=== PATIENT | female | born 1965 | race Caucasian/White ===

== ENCOUNTER 2016-06-26 12:49 | Observation (INO) | payer OTHER ==
[~2016-06-26 12:49] MED LIST: CHLORHEXIDINE GLUC HIBICLENS 118 ML BTL TP ONE; VANCOMYCIN 1.5 GM in D5W 250 ML IV ONE
[2016-06-26] MEDS ORDERED: LIDOCAINE 1% 2 ML INJ ONE (13:48)
[2016-06-26] MEDS ORDERED: diphenhydrAMINE 25 MG CAP PO PRN ×2 (14:17→14:26)
[2016-06-26] MEDS ORDERED: tiZANidine HCL 2 MG TAB PO PRN (14:17)
[2016-06-26] MEDS ORDERED: ACETAMINOPHEN 500 MG TAB PO PRN (14:17)
[2016-06-26] MEDS ORDERED: PROMETHAZINE HCL 25 MG TAB PO PRN (14:17)
[2016-06-26] MEDS ORDERED: FLUTICASONE NASAL 120 SPRAYS/16 GM MDI EACHNARE PRN (14:17)
[2016-06-26] MEDS ORDERED: DIAZEPAM 5 MG TAB PO PRN ×2 (14:17→14:26)
[2016-06-26] MEDS ORDERED: Zonisamide 25 MG PO PRN (14:17)
[2016-06-26] MEDS ORDERED: RIZATRIPTAN BENZOATE PO PRN (14:17)
[2016-06-26] MEDS ORDERED: KETOROLAC 30 MG/1 ML SDV IM PRN (14:17)
[2016-06-26] MEDS ORDERED: LIDOCAINE 5% 1 EA PATCH TD PRN (14:17)
[2016-06-26] MEDS ORDERED: MIDAZOLAM 2 MG/2 ML VIAL ONE (14:18)
[2016-06-26] MEDS ORDERED: METHOCARBAMOL 750 MG TAB PO PRN (14:26)
[2016-06-26] MEDS ORDERED: MAGNESIUM HYDROXIDE 30 ML UDCUP PO PRN (14:26)
[2016-06-26] MEDS ORDERED: BISACODYL 10 MG SUPP PR PRN (14:26)
[2016-06-26] MEDS ORDERED: PHARMACY PAIN CONSULT 1 EA MISC PRN (14:26)
[2016-06-26] MEDS ORDERED: HYDROmorphONE/DILAUDID 1 MG/ML SYR IVP PRN (14:26)
[2016-06-26] MEDS ORDERED: NALOXONE HCL 0.4 MG/ML INJ IVP PRN (14:26)
[2016-06-26] MEDS ORDERED: ONDANSETRON DISINTEGRATING 4 MG TAB PO PRN (14:26)
[2016-06-26] MEDS ORDERED: ONDANSETRON 4 MG/2 ML VIAL IVP PRN (14:26)
[2016-06-26] MEDS ORDERED: DIAZEPAM 10 MG/2 ML SYR IVP PRN (14:26)
[2016-06-26] MEDS ORDERED: HYDROmorphONE/DILAUDID 2 MG/ML INJ ONE (14:27)
[2016-06-26] MEDS ORDERED: fentaNYL 100 MCG/2 ML INJ ONE ×3 (14:27→16:39)
[2016-06-26] MEDS ORDERED: REMIFENTANIL HCL 1 MG VIAL ONE (14:27)
[2016-06-26] MEDS ORDERED: PROPOFOL/EMULSION 500 MG/50 ML BOTTLE IV ONE (14:28)
[2016-06-26] MEDS ORDERED: KETAMINE 100 MG/10 ML SYR IVP ONE (14:28)
[2016-06-26] MEDS ORDERED: NS W/ 20 KCl/L 1,000 ML IV SCH (14:30)
[2016-06-26] MEDS ORDERED: LIDOCAINE 2% 5 ML SDV ONE (14:30)
[2016-06-26] MEDS ORDERED: ALENDRONATE SODIUM 70 MG TAB PO SCH (14:30)
[2016-06-26] MEDS ORDERED: Suvorexant [Belsomra] 15 MG PO PRN (14:30)
[2016-06-26] MEDS ORDERED: ROCURONIUM 50 MG/5 ML VIAL ONE (14:30)
[2016-06-26] MEDS ORDERED: LR 1,000 ML IV ONE (15:03)
[2016-06-26] MEDS ORDERED: LIDOCAINE 1% 5 ML SDV ID PRN (15:03)
[2016-06-26] MEDS ORDERED: DEXAMETHASONE 4 MG/ML VIAL ONE (15:04)
[2016-06-26] MEDS ORDERED: ONDANSETRON 4 MG/2 ML VIAL ONE (15:35)
--- NOTE | 2016-06-26 16:12 | SOAPPROG ---
SOAP Progress Note Assessment/Plan: Post Op Visit: S: Awake and alert. Pt with expected lower back pain O: AFVSS/PERRLA/EOMI no droop CN 2-12 grossly intact +lt touch 5/5 BUE/BLE = CDI A/P: 51 yo female that is s/p hardware removal T10-T12 -orders in place -call with any questions or concerns -pt seen by Dr Bailey as well -call with any questions or concerns 06/26/16 16:09 ICD10 Worksheet Patient Problems: Problems Problem Status Onset Chronic pain Acute S/P hardware removal Acute - ICD10 Problem Qualifiers (1) S/P hardware removal (2) Chronic pain Qualifiers: Chronic pain type: C
[2016-06-26] MEDS ORDERED: HYDROmorphONE/DILAUDID 1 MG/ML SYR ONE (16:21)
[2016-06-26] MEDS ORDERED: DIAZEPAM 10 MG/2 ML SYR ONE (16:39)
--- NOTE | 2016-06-26 17:22 | GOP ---
[f rep st] OPERATIVE REPORT DATE OF OPERATION: 06/26/2016 SURGEON: Harvey Bailey MD HAM MARKER: Fausto Nicole PA-C PREOPERATIVE DIAGNOSIS: Painful thoracic hardware, solid bony fusion of the thoracic spine. POSTOPERATIVE DIAGNOSIS: Painful thoracic hardware, solid bony fusion of the thoracic spine. PROCEDURE PERFORMED: Removal of posterior segmental instrumentation of the thoracic spine 3 levels, 6 total screws ([id number]), exploration and spinal fusion. FINDINGS: ESTIMATED BLOOD LOSS: 25 cc. INDICATIONS: The patient is a 51-year-old who struggles with terrible chronic pain and underwent a thoracic fusion that ultimately was complicated by pseudarthrosis by another surgeon who came to me and wanted revision of the surgery, and she underwent a successful thoracic fusion revision, and we did achieve bony arthrodesis. Unfortunately, the hardware remained very painful, and she continued to struggle with terrible pain. She wanted to have the hardware removed. The risk of fracture of t he posterolateral fusion as well as continued pain was discussed. She knew there was a chance of in fection, and she wanted to proceed. She understood that surgery may fail to alleviate her symptoms, and she wanted to proceed. DESCRIPTION OF PROCEDURE: Patient was taken to the operating room, placed in supine position. Gene ral anesthesia was begun. She was flipped prone onto the Ulises table. Care was taken to pad all points of contact. Her back was sterilely prepped and draped in the usual fashion. A localizing x- ray was taken. We anesthetized the paraspinal muscles. We made a midline incision, opening her yolanda or incision. We exposed the prior hardware. It was [employer] Solera pedicle screws, and there was no complication noted in the hardware. We removed all the cap screws, both rods, and then removed a ll 6 screws. They were all firmly seated within the bone. There was no evidence of any hardware lo osening. We then investigated the fusion underneath the hardware, and there was solid posterolatera l bone bilaterally. We were happy with the overall quality of the fusion. We then closed the incis ion in multiple layers using Vicryl sutures. A running PDS was placed in the skin itself. The padmini ent was reversed from anesthesia, extubated, and transferred to the recovery room in stable conditio n. There were no complications. COMPLICATIONS: None. /[id number]/MODL
[2016-06-26] MEDS: HYDROmorphONE/DILAUDID 6 MG/30 ML PCA IV PRN (17:56)
[2016-06-26] MEDS: PREGABALIN 50 MG CAP PO SCH ×2 (17:57→22:18)
[2016-06-26] MEDS: SENNOSIDES/DOCUSATE SODIUM TAB PO SCH (20:03)
[2016-06-26] MEDS: FAMOTIDINE 20 MG TAB PO SCH (20:05)
[2016-06-26] MEDS ORDERED: MELATONIN 3 MG TAB PO SCH (21:00)
[2016-06-26] MEDS ORDERED: FAMOTIDINE 20 MG/NACL 50 ML IV SCH (21:00)
[2016-06-26] MEDS ORDERED: ZOLPIDEM TARTRATE 5 MG TAB PO SCH (21:00)
[2016-06-26] MEDS ORDERED: MONTELUKAST SODIUM 10 MG TAB PO SCH (21:00)
[2016-06-26] MEDS: MORPHINE SULFATE PO SCH (21:05)
[2016-06-26] MEDS: BUDESONIDE 0.5 MG/2 ML AMPUL.NEB IH SCH ×2 (21:27→21:30)
[2016-06-26] MEDS: MUPIROCIN 2% 22 GM OINT TP SCH (22:19)
[2016-06-27] MEDS: VANCOMYCIN 1.5 GM in D5W 250 ML IV SCH ×2 (01:50→14:29)
[2016-06-27] MEDS: HYDROCODONE/APAP 10/325 TAB PO PRN ×2 (02:18→12:31)
[2016-06-27 05:20] LABS: % IMMATURE GRANULYOCYTES 0.4 % (0.0-1.1); ABSOLUTE IMMATURE GRANULOCYTES 0.04 10^3/uL (0.00-0.10); ADD DIFF? NO; ADD MORPH? NO; ADD SCAN? NO; ATYPICAL LYMPHOCYTE FLAG 50 (0-99); FRAGMENT RBC FLAG 0 (0-99); HEMATOCRIT 38.9 % (38.0-47.0); HEMOGLOBIN 12.3 g/dL (12.6-16.3); LEFT SHIFT FLG 0 (0-99); LIPEMIA HEMOLYSIS FLAG 80 (0-99); MEAN CELL HEMOGLOBIN CONCENTR. 31.6 g/dL (32.4-36.7); MEAN CELL VOLUME 88.6 fL (81.5-99.8); MEAN PLATELET VOLUME 11.8 fL (8.7-11.7); PLATELET CLUMPS FLAG 0 (0-99); PLATELET COUNT 239 10^3/uL (150-400); RED BLOOD CELL COUNT 4.39 10^6/uL (4.18-5.33); RED CELL DISTRIBUTION WIDTH 15.8 % (11.5-15.2)
[2016-06-27 05:42] LABS: ANION GAP 11 mEq/L (8-16); CALCIUM 9.5 mg/dL (8.5-10.4); CARBON DIOXIDE 25 mEq/l (22-31); CHLORIDE 107 mEq/L (97-110); CREATININE 0.8 mg/dL (0.6-1.0); GLOMERULAR FILTRATION RATE > 60; GLUCOSE 87 mg/dL (70-100); POTASSIUM 4.8 mEq/L (3.5-5.2); SODIUM 143 mEq/L (134-144)
[2016-06-27] MEDS ORDERED: LEVOTHYROXINE 50 MCG TAB PO SCH (06:00)
[2016-06-27] MEDS: HYDROmorphONE/DILAUDID 6 MG/30 ML PCA IV PRN (07:12)
--- NOTE | 2016-06-27 08:20 | NEUSURGPN ---
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 NAD. Eating/drinking and voiding. Pt with expected lower back pain. No wells/neck/chest/abd or gu complaints. Objective: AFVSS/PERRLA/EOMI no droop CN 2-12 grossly intact +lt touch 5/5 BUE/BLE = CDI Neuro Check Frequency: per routine Urinary Catheter in Place: No - Physician Discussed Patient with Dr.: Leo Patient Seen by : Leo Neurosurgery Physical Exam - Vitals, I&O, Labs I and O 06/26/16 06/27/16 06/28/16 05:59 05:59 05:59 Intake Total 1730 Output Total 2019 Balance -290 Intake: Oral (ml) 330 IV Intake (ml) 600 IV Infused (ml) 800 NS W/ 20 KCl/L 1,000 ml @ 550 75 mls/hr IV CONT ROBLES Rx #:[id number] Vancomycin 1.5 gm In D5w 250 250 ml @ 166.67 mls/hr IV Q12H ROBLES Rx#:[id number] Output: Urine (ml) 2000 Toilet 2000 Estimated Blood Loss (ml) 20 Other: Number of Voids Toilet 1 Vital Signs Temp Pulse Resp BP Pulse Ox 36.8 C 87 18 120/79 92 06/27/16 07:21 06/27/16 07:21 06/27/16 07:21 06/27/16 07:21 06/27/16 07:21 Laboratory Results 06/27/16 04:38 06/27/16 04:38 ICD10 Worksheet Patient Problems: Problems Problem Status Onset Chronic pain Acute S/P hardware removal Acute - ICD10 Problem Qualifiers (1) S/P hardware removal (2) Chronic pain Qualifiers: Chronic pain type: C
[2016-06-27] MEDS: PREGABALIN 50 MG CAP PO SCH (08:42)
[2016-06-27] MEDS: FAMOTIDINE 20 MG TAB PO SCH (08:47)
[2016-06-27] MEDS: SENNOSIDES/DOCUSATE SODIUM TAB PO SCH (08:50)
[2016-06-27] MEDS ORDERED: CETIRIZINE 10 MG TAB PO SCH (09:00)
[2016-06-27] MEDS ORDERED: HCTZ PO SCH (09:00)
[2016-06-27] MEDS ORDERED: MAGNESIUM OXIDE 400 MG TAB PO SCH (09:00)
[2016-06-27] MEDS ORDERED: TRIMETHOPRIM 100 MG TAB PO SCH (09:00)
[2016-06-27] MEDS ORDERED: DULoxetine 60 MG CAP PO SCH (09:00)
[2016-06-27] MEDS ORDERED: PANTOPRAZOLE SODIUM 40 MG TAB PO SCH (09:00)
[2016-06-27] MEDS ORDERED: ENOXAPARIN 40 MG/0.4 ML SYR SC SCH (09:00)
[2016-06-27] MEDS ORDERED: NON-FORMULARY NEW DRUG (Omeprazole [Prilosec 20 Mg] 40 MG) PO SCH (09:00)
[2016-06-27] MEDS ORDERED: BISOPROLOL PO SCH (09:00)
[2016-06-27] MEDS ORDERED: POLYETHYLENE GLYCOL 3350 17 GM PKT PO SCH (09:00)
[2016-06-27] MEDS: BUDESONIDE 0.5 MG/2 ML AMPUL.NEB IH SCH (09:07)
[2016-06-27] MEDS ORDERED: morphINE SR 30 MG TAB PO SCH (09:30)
[2016-06-27 12:21] VITALS: BP 117/65; PULSE 74; RESP 16; TEMP 98
[2016-06-27] MEDS: MUPIROCIN 2% 22 GM OINT TP SCH (12:38)
[2016-06-27 14:21] VITALS: O2SAT 93
[2016-06-27] MEDS: MORPHINE SULFATE PO SCH (14:28)
[2016-06-29] MEDS ORDERED: ENOXAPARIN 40 MG/0.4 ML SYR SC SCH (09:00)
== END 2016-06-27 17:12 | disposition home or self-care (01) ==
LOC: INTOOBSV 12:49 → F3N 12:49
PROVIDERS: ADMIT Neurological Surgery; ATTEND Neurological Surgery
PROC: 0PP404Z Removal of Internal Fixation Device from Thoracic Vertebra, Open Approach (ICD-10-PCS; principal; 2016-06-26 14:00)
DX: T84.84XA Pain due to internal orthopedic prosthetic devices, implants and grafts, initial encounter (principal); Z98.1 Arthrodesis status
CPT/HCPCS: 22852; 76001; 93971; 97161; 97165; G0378; G8978; G8979; G8987; G8988; G8989; J1100; J1170; J1650; J2250; J2405; J2704; J3010; J3370; J7626

== ENCOUNTER 2016-11-01 05:50 | Inpatient (IN) | payer OTHER ==
[2016-11-01] MEDS ORDERED: VANCOMYCIN 1.25 GM in D5W 250 ML IV ONE (06:00)
[2016-11-01] MEDS ORDERED: MIDAZOLAM 2 MG/2 ML VIAL IVP ONE (06:50)
[2016-11-01 06:57] LABS: % IMMATURE GRANULYOCYTES 0.2 % (0.0-1.1); ABSOLUTE IMMATURE GRANULOCYTES 0.01 10^3/uL (0.00-0.10); ADD DIFF? NO; ADD MORPH? NO; ADD SCAN? NO; ATYPICAL LYMPHOCYTE FLAG 0 (0-99); FRAGMENT RBC FLAG 0 (0-99); HEMATOCRIT 42.2 % (38.0-47.0); HEMOGLOBIN 14.1 g/dL (12.6-16.3); LEFT SHIFT FLG 0 (0-99); LIPEMIA HEMOLYSIS FLAG 80 (0-99); MEAN CELL HEMOGLOBIN 29.7 pg (27.9-34.1); MEAN CELL HEMOGLOBIN CONCENTR. 33.4 g/dL (32.4-36.7); MEAN CELL VOLUME 88.8 fL (81.5-99.8); MEAN PLATELET VOLUME 11.6 fL (8.7-11.7); PLATELET CLUMPS FLAG 0 (0-99); PLATELET COUNT 213 10^3/uL (150-400); RED BLOOD CELL COUNT 4.75 10^6/uL (4.18-5.33); RED CELL DISTRIBUTION WIDTH 13.1 % (11.5-15.2)
--- NOTE | 2016-11-01 06:58 | PDHPUP ---
History & Physical Update H&P update statement: This history and physical update is based on an assessment of the patient which was completed after admission or registration (within 24 hours), but prior to the surgery/procedure. H&P update: H&P reviewed & patient examined, no change in patient's condition since H&P completed
[2016-11-01] MEDS ORDERED: THROMBIN (BOVINE) 20,000 UNIT VIAL TP ONE ×2 (06:59→08:37)
[2016-11-01] MEDS ORDERED: BUPIVACAINE/EPI 0.25% 30 ML SDV ONE (06:59)
[2016-11-01] MEDS ORDERED: VANCOMYCIN PHARMACY TO DOSE MISC ONE (07:00)
[2016-11-01] MEDS ORDERED: BACITRACIN 50,000 UNITS/10 ML SYR IRR ONE ×2 (07:00→13:15)
[2016-11-01] MEDS ORDERED: ROCURONIUM 50 MG/5 ML VIAL ONE (07:21)
[2016-11-01] MEDS ORDERED: DEXAMETHASONE 4 MG/ML VIAL ONE ×3 (07:21→07:22)
[2016-11-01] MEDS ORDERED: ONDANSETRON 4 MG/2 ML VIAL ONE (07:21)
[2016-11-01] MEDS ORDERED: RANITIDINE 50 MG/2 ML VIAL ONE (07:21)
[2016-11-01 07:22] LABS: ANION GAP 14 mEq/L (8-16); C-REACTIVE PROTEIN 35.5 mg/L (<10.0); CALCIUM 9.5 mg/dL (8.5-10.4); CARBON DIOXIDE 22 mEq/l (22-31); CHLORIDE 105 mEq/L (97-110); CREATININE 0.9 mg/dL (0.6-1.0); GLOMERULAR FILTRATION RATE > 60; GLUCOSE 89 mg/dL (70-100); POTASSIUM 4.6 mEq/L (3.5-5.2); SODIUM 141 mEq/L (134-144)
[2016-11-01] MEDS ORDERED: LIDOCAINE 2% 5 ML SDV ONE (07:23)
[2016-11-01] MEDS ORDERED: fentaNYL 100 MCG/2 ML INJ ONE ×5 (07:23→17:51)
[2016-11-01] MEDS ORDERED: PROPOFOL 200 MG/20 ML VIAL ONE ×2 (07:24→09:05)
[2016-11-01] MEDS ORDERED: PROPOFOL/EMULSION 500 MG/50 ML BOTTLE IV ONE ×2 (07:25→08:12)
[2016-11-01] MEDS ORDERED: TRANEXAMIC ACID 820 MG in NS 100 ML IV ONE (07:30)
[2016-11-01] MEDS ORDERED: CHLORHEXIDINE GLUC HIBICLENS 118 ML BTL TP ONE (07:30)
[2016-11-01] MEDS ORDERED: KETAMINE 100 MG/10 ML SYR ONE (07:38)
--- NOTE | 2016-11-01 07:39 | PDANEPAE ---
ANE Past Medical History - Cardiovascular History Hx Hypertension: No Hx Arrhythmias: No Hx Chest Pain: No Hx Coronary Artery / Peripheral Vascular Disease: No Hx CHF / Valvular Disease: No Hx Palpitations: No - Pulmonary History Hx COPD: No Hx Asthma/Reactive Airway Disease: No Hx Recent Upper Respiratory Infection: No Hx Oxygen in Use at Home: No Hx Sleep Apnea: Yes Sleep Apnea Screening Result - Last Documented: Positive Pulmonary History Comment: POS GOMEZ W/BIPAP - Neurologic History Hx Cerebrovascular Accident: No Hx Seizures: No Hx Dementia: No Neurologic History Comment: MIGRAINES - Endocrine History Hx Diabetes: Yes Hypothyroid: Yes Hyperthyroid: No Endocrine History Comment: HYPOTHYROID - Renal History Hx Renal Disorders: No - Liver History Hx Hepatic Disorders: Yes Hepatic History Comment: CHOLECYSTECTOMY - Neurological & Psychiatric Hx Hx Neurological and Psychiatric Disorders: Yes Neurological / Psychiatric History Comment: SITUATIONAL DEPRESSION - Cancer History Hx Cancer: No - Congenital Disorder History Hx Congenital Disorders: No - GI History GERD: moderate Hx Gastrointestinal Disorders: Yes Gastrointestinal History Comment: GERD - Other Health History Other Health History: FIBROMYALGIA. TRIGEMINAL NEURALGIA. BLEEDING DISORDER - LUPUS ANTICOAGULATION. PROTEIN C DEFICIENCY. IRON DEFICIENCY ANEMIA - Chronic Pain History Chronic Pain: Yes (THORACIC PAIN) - Surgical History Prior Surgeries: LUMBAR SPINAL SURG X6(BEGAN 2007). CHOLECYSTECTOMY. R FOOT FX. DVT L GROIN - BYPASS SURG W/4 STENTS. NEUROSTIMULATORS X2 AND REMOVED W/ MRSA INF ALONG W/HAREWARE REMOVAL. SINUS SURG X5 ANE Review of Systems - Exercise capacity METS (RN): 1 METS ANE Patient History - Allergies Allergies/Adverse Reactions: adhesive tape Allergy (Verified 06/05/16 16:05) Rash Penicillins Allergy (Verified 06/05/16 16:05) Hives Sulfa (Sulfonamide Antibiotics) Allergy (Verified 06/05/16 16:05) Hives - Home Medications Home Medications: Acetaminophen [Tylenol ES 500 mg (*)] 1,000 mg PO DAILY PRN 05/30/16 [Last Taken 06/26/16 03:00] Alendronate Sodium [Fosamax 70 MG (*)] 70 mg PO MO 05/30/16 [Last Taken 06/24/16 ] Budesonide [Budesonide 0.5MG/2Ml Neb (*)] 0.5 mg NASAL DAILY 05/30/16 [Last Taken 06/26/16 10:00] Cetirizine [ZyrTEC 10 mg (*)] 10 mg PO DAILY 05/30/16 [Last Taken 06/25/16 19:00 ] DULoxetine [Cymbalta 60 MG (*)] 60 mg PO DAILY 05/30/16 [Last Taken 11/01/16 60MG] Diazepam [Valium 10 MG (*)] 10 mg PO TID PRN 05/30/16 [Last Taken 06/26/16 03:00 ] Enoxaparin [Lovenox 40 MG (*)] 40 mg SQ BID 05/30/16 [Last Taken 10/31/16] Fluticasone Nasal [Flonase Nasal [place]] 2 sprays EACHNARE DAILY PRN 05/30/16 [ Last Taken 06/25/16 21:00] Herbals/Supplements -Info Only 1 ea PO DAILY 05/30/16 [Last Taken 06/12/16] Levothyroxine [Synthroid 50 mcg (*)] 50 mcg PO DAILY06 05/30/16 [Last Taken ] Lidocaine 5% [Lidoderm 5% Patch (*)] 1 ea TD DAILY PRN 05/30/16 [Last Taken 10/28] Magnesium Oxide [Magnesium Oxide 400 mg (*)] 400 mg PO DAILY 05/30/16 [Last Taken 06/19/16] Montelukast Sodium [Singulair 10 mg (*)] 10 mg PO HS 05/30/16 [Last Taken 21:00] Morphine Sulfate [Morphine Sulfate ER] 30 mg PO BID 05/30/16 [Last Taken 09:15] Mupirocin 2% [Bactroban 2%] 1 rosanne NASAL DAILY 05/30/16 [Last Taken 06/19/16] Polyethylene Glycol 3350 [Miralax 17 gm (*)] 17 gm PO DAILY 05/30/16 [Last Taken Unknown] Promethazine HCl [Phenergan 25mg (*)] 25 mg PO DAILY PRN 05/30/16 [Last Taken ] Suvorexant [Belsomra] 15 mg PO HS PRN 05/30/16 [Last Taken 06/19/16] Trimethoprim [TRIMPEX 100MG (*)] 100 mg PO HS 05/30/16 [Last Taken Unknown] diphenhydrAMINE [Benadryl 25 MG (*)] 25 mg PO ONCE PRN 05/30/16 [Last Taken ] oxyCODONE IR [Oxycodone Ir (*)] 30 mg PO QID PRN 05/30/16 [Last Taken 11/01/16] Aspirin EC [Aspirin EC 81 mg (*)] 81 mg PO DAILY 10/31/16 [Last Taken Unknown] Botulinum Toxin Type A [Botox] 1 rosanne ID Q84D 10/31/16 [Last Taken 09/17/16] Calcium Carbonate [Oyster Shell Calcium 500 mg (*)] 1,500 mg PO DAILY 10/31/16 [ Last Taken Unknown] Hydromorphone/Bupi Pump 0 mg MISC CONT 10/31/16 [Last Taken Unknown] Methylphenidate HCl [Ritalin 5mg (*)] 15 mg PO BID PRN 10/31/16 [Last Taken Unknown] OLANZapine [ZyPREXA 2.5 mg (*)] 7.5 mg PO HS PRN 10/31/16 [Last Taken Unknown] Omeprazole 40 mg PO DAILY 10/31/16 [Last Taken 11/01/16] Pregabalin [LYRICA] 100 mg PO TID 10/31/16 [Last Taken 11/01/16] Rizatriptan Benzoate [Maxalt Mover Helper] 20 mg PO DAILY PRN 10/31/16 [Last Taken Unknown] Sodium Cl Nasal [[place] (*)] 1 spray NS DAILY 10/31/16 [Last Taken Unknown] Zolpidem Tartrate [Ambien 10 mg] 10 mg PO HS PRN 10/31/16 [Last Taken Unknown] - NPO status NPO Since - Liquids (Date): 10/31/16 NPO Since - Liquids (Time): 20:00 NPO Since - Solids (Date): 10/31/16 NPO Since - Solids (Time): 20:00 - Smoking Hx Smoking Status: Former smoker - Family Anes Hx Family Hx Anesthesia Complications: NEG ANE Labs/Vital Signs - Labs Result Diagrams: 11/01/16 06:40 11/01/16 06:40 - Vital Signs Blood Pressure: 106/76 Heart Rate: 97 Respiratory Rate: 92 O2 Sat (%): 90 Height: 170.18 cm Weight: 81.647 kg ANE Physical Exam - Airway Neck exam: FROM Mallampati Score: Class 2 Mouth exam: normal dental/mouth exam - Pulmonary Pulmonary: no respiratory distress, no rales or rhonchi, clear to auscultation - Cardiovascular Cardiovascular: regular rate and rhythym - ASA Status ASA Status: III ANE Anesthesia Plan Anesthesia Plan: general endotracheal anesthesia Lines/Monitors: arterial line, additional IV
[2016-11-01] MEDS ORDERED: oxyCODONE CR 15 MG TAB PO ONE (07:41)
[2016-11-01] MEDS ORDERED: PHENYLEPHRINE HCL 100 MCG/ML SYR ONE ×4 (07:42→16:23)
[2016-11-01 07:51] LABS: SEDIMENTATION RATE 16 MM/HR (0-30)
[2016-11-01] MEDS ORDERED: VANCOMYCIN HCL/NORMAL SALINE 250 ML IV ONE (08:55)
[2016-11-01] MEDS ORDERED: METOPROLOL TARTRATE 5 MG/5 ML INJ ONE (09:12)
[2016-11-01] MEDS ORDERED: ALBUMIN 5% 250 ML BOTTLE IV ONE ×3 (13:29→17:16)
[2016-11-01] MEDS ORDERED: CALCIUM CHLORIDE 1 GM/10 ML INJ ONE (13:40)
[2016-11-01] MEDS ORDERED: DEXMEDETOMIDINE HCL 400 MCG in NS 100 ML IV ONE (14:00)
[2016-11-01] MEDS ORDERED: HYDROmorphONE/DILAUDID 1 MG/ML SYR IVP PRN (14:06)
[2016-11-01] MEDS ORDERED: NALOXONE HCL 0.4 MG/ML INJ IVP PRN (14:06)
[2016-11-01] MEDS ORDERED: MEPERIDINE 25 MG/ML SYR IVP PRN (14:06)
[2016-11-01] MEDS ORDERED: LR 500 ML IV PRN (14:06)
[2016-11-01] MEDS ORDERED: PROMETHAZINE HCL 25 MG/ML INJ IVP PRN (14:06)
[2016-11-01] MEDS ORDERED: ONDANSETRON 4 MG/2 ML VIAL IVP PRN ×2 (14:06→17:04)
[2016-11-01] MEDS ORDERED: ENALAPRILAT DIHYDRATE 1.25 MG/ML VIAL IVP PRN (14:06)
[2016-11-01] MEDS ORDERED: DIAZEPAM 10 MG/2 ML SYR ONE (15:50)
[2016-11-01] MEDS ORDERED: LACTULOSE 20 GM/30 ML UDCUP PO PRN (17:04)
[2016-11-01] MEDS ORDERED: NS 500 ML IV PRN (17:04)
[2016-11-01] MEDS ORDERED: oxyCODONE IR 5 MG TAB PO PRN (17:04)
[2016-11-01] MEDS ORDERED: MAGNESIUM HYDROXIDE 30 ML UDCUP PO PRN (17:04)
[2016-11-01] MEDS ORDERED: ONDANSETRON DISINTEGRATING 4 MG TAB PO PRN (17:04)
[2016-11-01] MEDS ORDERED: BISACODYL 10 MG SUPP PR PRN (17:04)
[2016-11-01] MEDS ORDERED: LIDOCAINE 5% 1 EA PATCH TD PRN (17:21)
[2016-11-01] MEDS ORDERED: HYDROMORPHONE MISC SCH (17:30)
[2016-11-01] MEDS ORDERED: [UNRECOGNIZED DRUG - OTHER] MISC SCH (17:30)
[2016-11-01] MEDS ORDERED: DEXMEDETOMIDINE HCL 400 MCG in NS 100 ML IV SCH (17:30)
[2016-11-01] MEDS ORDERED: HYDROmorphONE/DILAUDID 1 MG/ML SYR ONE (17:51)
[2016-11-01] MEDS: fentaNYL 100 MCG/2 ML INJ IVP PRN ×2 (17:55→18:00)
--- NOTE | 2016-11-01 18:25 | POSTANESTH ---
Post Anesthetic Evaluation Cardiovascular Status: Normal, Stable, Tx Over/Under Hydration Respiratory Status: Normal, Stable Level of Consciousness/Mental Status: Can Participate in Eval, Mildly Sleepy, Arousable Pain Control: Adequate, Prn Tx Ordered Nausea/Vomiting Control: Adequate, Prn Tx Ordered Complications Possibly Related to Anesthesia: None Noted
--- NOTE | 2016-11-01 18:38 | POSTOPPROG ---
Post Op Note Date of Operation: 11/01/16 Surgeon: Uma Pacheco Integrated Circuits Inspector: Uma Pacheco BROOM STITCHER Anesthesia: GET(General Endotracheal) Pre-op Diagnosis: T11 fracture with kyphosis Post-op Diagnosis: T6-L3 fusion with T11 ORIF/pedicle subtraction osteotomy Procedure: T6-L3 fusion with T11 ORIF/pedicle subtraction osteotomy Inf/Abcess present in the surg proc area at time of surgery?: No Depth: Deep Incisional (Fascial) EBL: 100-500 Total fluids administered: see anthesia Drains: Ulises Barba Assessment: 51 yr old female T6-L3 fusion with T11 ORIF/pedicle subtraction osteotomy for T11 fracture and kyphosis Plan: -Precedex, ICU -Patient has Dilaudid pain pump which was filled yesterday, I consulted pharmacy to help adjust medications in conjunction with her home medications -PT/OT when able to ambulate -It Professional ordered to fit for rigid TLSO brace with extension bias (clamshell), will need to wear brace when out of bed -YVON in place -Start Lovenox POD #3 -Will continue Vanco dosed by pharm until culture results -Post op xrays ordered for 11/02 -Call neurosurgery with any questions/concerns Subjective: Patient waking up in PACU, unable to obtain Objective: Vital Signs Temp Pulse Resp BP Pulse Ox 36.3 C 115 H 13 105/65 98 11/01/16 17:33 11/01/16 17:33 11/01/16 18:10 11/01/16 18:06 11/01/16 18:12 Microbiology 11/01/16 15:00 Gram Stain - Final Back - Tissue 11/01/16 13:03 Gram Stain - Final Other - Eswab Laboratory Results 11/01/16 06:40 11/01/16 06:40 Objective Waking up in PACU, follows commands-on Precedex NAD VSS MAEx4 Motor 5/5 BLE +LT Incision CDI JPx1 Allergies/Adverse Reactions: adhesive tape Allergy (Verified 06/05/16 16:05) Rash Penicillins Allergy (Verified 06/05/16 16:05) Hives Sulfa (Sulfonamide Antibiotics) Allergy (Verified 06/05/16 16:05) Hives
[2016-11-01] MEDS ORDERED: morphINE SR 15 MG TAB PO SCH ×2 (21:00)
[2016-11-01] MEDS ORDERED: MORPHINE SULFATE 30 MG PO SCH (21:00)
[2016-11-01] MEDS: SENNOSIDES/DOCUSATE SODIUM TAB PO SCH (21:49)
[2016-11-01] MEDS: FAMOTIDINE 20 MG TAB PO SCH (21:49)
[2016-11-01] MEDS: PREGABALIN 100 MG CAP PO SCH (21:49)
[2016-11-01] MEDS: METHOCARBAMOL 750 MG TAB PO PRN (21:50)
[2016-11-01] MEDS: ACETAMINOPHEN 500 MG TAB PO SCH (21:50)
[2016-11-01] MEDS: morphINE SR 30 MG TAB PO SCH (21:50)
[2016-11-01] MEDS: NS 1,000 ML IV SCH (21:52)
[2016-11-02 01:02] LABS: HEMATOCRIT 19.2 % (38.0-47.0)
[2016-11-02 01:06] LABS: HEMOGLOBIN 6.5 g/dL (12.6-16.3)
[2016-11-02] MEDS: HYDROmorphONE/DILAUDID 1 MG/ML SYR IVP PRN ×5 (02:02→19:41)
[2016-11-02] MEDS: oxyCODONE IR 15 MG TAB PO PRN ×4 (02:03→17:06)
[2016-11-02] MEDS: NS 1,000 ML IV SCH ×2 (02:26→16:21)
[2016-11-02] MEDS: VANCOMYCIN 1.25 GM in D5W 250 ML IV SCH ×2 (03:23→14:36)
[2016-11-02 04:54] LABS: ANION GAP 6 mEq/L (8-16); CALCIUM 7.2 mg/dL (8.5-10.4); CARBON DIOXIDE 21 mEq/l (22-31); CHLORIDE 111 mEq/L (97-110); CREATININE 0.7 mg/dL (0.6-1.0); GLOMERULAR FILTRATION RATE > 60; GLUCOSE 119 mg/dL (70-100); POTASSIUM 4.7 mEq/L (3.5-5.2); SODIUM 138 mEq/L (134-144)
[2016-11-02 05:45] LABS: % IMMATURE GRANULYOCYTES 0.4 % (0.0-1.1); ABSOLUTE IMMATURE GRANULOCYTES 0.03 10^3/uL (0.00-0.10); ADD DIFF? NO; ADD MORPH? NO; ADD SCAN? NO; ATYPICAL LYMPHOCYTE FLAG 0 (0-99); FRAGMENT RBC FLAG 0 (0-99); HEMATOCRIT 25.8 % (38.0-47.0); HEMOGLOBIN 8.6 g/dL (12.6-16.3); LEFT SHIFT FLG 0 (0-99); LIPEMIA HEMOLYSIS FLAG 80 (0-99); MEAN CELL HEMOGLOBIN 29.3 pg (27.9-34.1); MEAN CELL HEMOGLOBIN CONCENTR. 33.3 g/dL (32.4-36.7); MEAN CELL VOLUME 87.8 fL (81.5-99.8); MEAN PLATELET VOLUME 11.1 fL (8.7-11.7); PLATELET CLUMPS FLAG 0 (0-99); PLATELET COUNT 156 10^3/uL (150-400); RED BLOOD CELL COUNT 2.94 10^6/uL (4.18-5.33); RED CELL DISTRIBUTION WIDTH 14.3 % (11.5-15.2)
[2016-11-02] MEDS: ACETAMINOPHEN 500 MG TAB PO SCH ×3 (06:33→21:12)
[2016-11-02] MEDS: METHOCARBAMOL 750 MG TAB PO PRN ×3 (06:34→19:41)
[2016-11-02] MEDS: LEVOTHYROXINE 50 MCG TAB PO SCH (06:34)
[2016-11-02] MEDS ORDERED: RIZATRIPTAN BENZOATE PO PRN (07:45)
[2016-11-02] MEDS ORDERED: OLANZapine 2.5 MG TAB PO PRN (07:45)
[2016-11-02] MEDS: CALCIUM CARBONATE 500 MG TAB PO SCH (08:43)
[2016-11-02] MEDS: FAMOTIDINE 20 MG TAB PO SCH ×2 (08:45→21:12)
[2016-11-02] MEDS: PREGABALIN 100 MG CAP PO SCH ×3 (08:45→21:13)
[2016-11-02] MEDS: PANTOPRAZOLE SODIUM 40 MG TAB PO SCH (08:45)
[2016-11-02] MEDS: SENNOSIDES/DOCUSATE SODIUM TAB PO SCH ×2 (08:45→21:12)
[2016-11-02] MEDS: CETIRIZINE 10 MG TAB PO SCH (08:46)
[2016-11-02] MEDS: SODIUM CL NASAL 45 ML BTL NS SCH (08:46)
[2016-11-02] MEDS: MAGNESIUM OXIDE 400 MG TAB PO SCH (08:46)
[2016-11-02] MEDS: DULoxetine 60 MG CAP PO SCH (08:46)
[2016-11-02] MEDS: morphINE SR 30 MG TAB PO SCH ×2 (08:46→21:12)
[2016-11-02] MEDS: DIAZEPAM 10 MG TAB PO PRN ×2 (08:53→17:06)
--- NOTE | 2016-11-02 09:19 | GOP ---
[f rep st] OPERATIVE REPORT DATE OF OPERATION: 11/01/2016 SURGEON: Harvey Bailey MD NEUROSURGEON: Harvey Bailey MD. AUTOMOTIVE SALES ASSOCIATE: Uma Hernandez, nurse practitioner. PREOPERATIVE DIAGNOSIS: Fracture dislocation of the thoracic spine at T10 and T11, with anterior listhesis of T10 on T11. Prior T10-T12 fusion. Severe thoracic kyphosis of almost 80 degrees. POSTOPERATIVE DIAGNOSIS: Fracture dislocation of the thoracic spine at T10 and T11, with anterior listhesis of T10 on T11. Prior T10-T12 fusion. Severe thoracic kyphosis of almost 80 degrees. PROCEDURE PERFORMED: 1. Open treatment and reduction of a fracture dislocated vertebral segment, posterior approach one fractured vertebrae thoracic (75189). 2. T11-T10 osteotomy of spine posterolateral approach 3-columns with a pedicle subtraction osteotomy at T11 (28116). 3. Posterior segmental instrumentation, 10 spinal segments from T6-L3 and segmental instrumentation (25804), spinal stereotactic, same incision bone graft harvest, arthrodesis posterior lateral only at T6-7, T7-8, T8-9, T9-10. We did a T10-T11 interbody lateral extra cavitary arthrodesis of the thoracic spine (70554). 4. Placement of biomechanical intervertebral device x2 at the T10-T11 segment ( 72504 x2), posterior lateral arthrodesis only T11-12, T12-L1, L1-L2, L2-L3. FINDINGS: ESTIMATED BLOOD LOSS: 650 cc. INDICATIONS: The patient is a 51 year old, who unfortunately underwent a thoracic fusion for degenerative disk disease by an outside surgeon, from T10 the T12, and developed a pseudarthrosis and had relentless pain. She, in fact, became a chronic pain patient, ultimately requiring intrathecal pump placement. She tried numerous thoracic stimulators, including peripheral thoracic nerve stimulation, to try to take care of the pain and none of it worked. These were eventually removed but she did develop a pseudoarthrosis at the site of the fusion and came to me for an opinion. We reluctantly removed her prior hardware and revised her fusion and intervertebral fusion and she eventually went on to successfully fuse. She was always bothered by the hardware in her back and 4 months ago she underwent removal of the hardware. She had a solid bony union that was proven preoperatively by CT scan. There was solid posterolateral bone mass from T10 to T12 and indeed when we explored or moved the prior hardware she was fused. Sometime around Mother's Day, about a month ago, she developed increasing back pain and had an x-ray that demonstrated focal kyphosis and compression at T11. She was placed into a brace in an attempt to treat this conservatively. The pain continued to worsen and she got a followup x-ray and came to the office earlier this week and she had remarkable thoracic kyphosis. She was simply kyphosing forward and T10 was now displaced anteriorly on T11 and one could appreciate a complete fracture through the posterior bone mass. It did appear on x-ray to be a Chance fracture but we did not get a CT scan, she simply needed to have surgery. We consented her for surgery and discussed with her the need for a long segment fixation of the thoracolumbar spine and the pain that this would cause. We also discussed the risks, including the risk of paraplegia, numbness, tingling, permanent paraplegia, CSF leak, failure of the intrathecal catheter, infection the intrathecal catheter. She understood there was risk of vascular injury, pseudoarthrosis and adjacent segment disease, and given the long segment fusion , we did tell her that we would almost certainly expect this to need to be extended down to her L5-S1 fusion in time. She understood these risks. She did want to proceed. She knew there was no other way forward, surgery was not elective, it was absolutely necessary because of the worsening kyphosis. MRI was done and the MRI report demonstrated a subacute or older fracture of T7, that was indeterminate. She clearly had a more acute fracture at T11 and T10 and we discussed the possibility of infection and we suggested intraoperative cultures to rule this out although we did not clinically suspect one, she did not display a tendency towards infection. She had a prior history of a surgical site infection that was MRSA and so she was treated as such. DESCRIPTION OF PROCEDURE: Patient was taken to the operating room, placed in supine position. General anesthesia was begun. After the appropriate lines were placed, she was flipped prone on the Ulises table. Care was taken to pad all points of contact. We attempted to reduce partially her kyphosis, which is simple positioning. She was sterilely prepped and draped several times by the surgeon. We opened her back and dissected from T5 down to L3 and it took considerable time to expose such a long segment but what actually took even more time was exposing around her intrathecal catheter down in the lumbar spine. We eventually did localize it, we were using the plasma blade to do our dissection to try to avoid any injury of the catheter and a more superficial white catheter was appreciated and then as we were dissected below the lamina of L2 and on the lamina of L3, we could appreciate the intrathecal portion of the catheter with a metal protective coil running through it. We did not violate the catheter. There was no leakage of any fluid whatsoever, and we carried on our dissection, stayed lateral to this. We had to position our retractors throughout the case in a special position so as not to hook this wire and it actually took considerable time on dealing with it. We shot localizing x-rays, denuded the posterolateral bone mass at T7-8, 8-9, 9-10, 10- 11, 11-12, 12-1, 1-2 to create posterior lateral fusion. We decorticated and removed the facet joints at each level. One could appreciate the T11-T12, was still thoroughly fused posterolaterally and T10 was now fractured and kyphotically angled away from T11 and T12. We positioned the O-arm in the room and performed an O-arm spin, one could see on O-arm spin it was indeed a Chance fracture through the pedicle of T11. The posterolateral bone mass actually did not fracture, the pedicles of T11 that had fractured all the way down in the vertebral body and there is anterior subluxation of T10 on T11, on these O-arm images. Using frameless Stealth stereotaxy, we placed pedicle screws bilaterally atL2-L1 and T12. We decided to include L3 because her bone quality was poor and we then made the decision to also include T6 which was somewhat longer than we intially planned for the construct. This was done because of her bone quality and significan kyphosis at the sight of the fracture dislocation. We then performed another O-arm spin, placed pedicle screws initially on the left side at T10, T9, T8, T7 and T6. We did elect to go to T6 because of the question of a possible T7 fracture as well as her bone quality. The pedicles on the left were extremely small,. Measuring less than 5 mm, and we used 5.5 mm screws. I elected to perform another O-arm spin before going to the right-hand side. I wanted to check all the left-sided screws at 6 , 7, 8, 9 and 10, and indeed these were all perfect and we ensured the accuracy of the O-arm and then went to the right-hand side and indeed the right-sided pedicles were also very challenging. We did use frameless Stealth stereotactic to place these pedicle screws and some of the screws were placed abutting the costovertebral joint without violation of the spinal canal. I was very happy with the bony purchase of each of the screws although her bone quality was very poor. We then decorticated T67 and L23 in addition to the other levels we had decorticated to include these in the posterior arthrodesis. I put all these screws down and took additional time adjusting the screw heads, insuring that the screws were well-seated on the spine itself to decrease their prominence and also ensuring there was still multiaxial motion of their heads to allow us to get the rods down over the screws. We then turned our attention to the pedicle subtraction osteotomy. We removed the T11 lamina and harvested it for autologous grafting purposes and then worked our way toward the T10-T11 segment. T11 was completely removed. We had a large amount of bone. We followed this rostrally along the dura and encountered the T10-11 epidural scar tissue and this took considerable time. We exposed bilaterally. We marched up laterally along the T11 pedicle and indeed the T11 pedicle was fractured. We followed this into the neural foramina and we actually removed the rostral on T11 pedicle bilaterally and we continued removing this down, this is the posterior column, through the pedicle into the vertebral body, until we encountered the peek interspace. On the left-hand side there was no exiting nerve root, the T11 nerve root had been taken at the time of her last surgery, we worked our way down the T10 pedicle into the vertebral body where the peek intervertebral device was. There was absolutely no indication of infection. The tissue was actually quite firm. The bone itself was hard. I was impressed with her bone quality here. I was more impressed with the bone quality here than anywhere else in the spine. We then carefully drilled out the peek intervertebral device, some of this material was then cultured. We also sent some small amount of tissue for an ASB as well. We completely removed the T10- 11 disc and removed more ventral portions of the disk to create arthrodesis and we went to the right-hand side where the dissection somewhat more straight forward but still challenging as there was scarring of the epidural space at the site of our previous laminectomy. Here too we removed the entire rostral T11 pedicle which allowed access to the disk space at T10-11 and from this approach we accessed the disc itself. We then ligated with a metal clip the exiting T10 root just as we had done on the left-hand side. So now bilateral T10 roots had been ligated and we completely removed the T10-11 disc from the right-hand side approach and then drilled out the rostral portion of the T11 vertebral body. We dissected under the thecal sac to ensure that we had actually removed the posterior vertebral body so that it would not buckle into the spinal canal as we reduced the kyphosis. We now performed removal of the rostral T11 pedicle and wedge portion of T11. We removed all of the cartilaginous endplates at T10. We drilled and decorticated partially the T10 vertebral endplates to create arthrodesis and then we chose two 7 x 23 mm Elevate cages. We placed trials into the space from the left and right-sided approach and chose a 7 x 23 mm device. We inserted these and I was somewhat unhappy with where they were located within the disk space. There was still abutting of the posterior margin of the spinal canal, lateral to medial trajectory. They were placed in a lateral extra cavitary way on each side, so their posterior margin would never touch the dura regardless but I wanted them more ventral to give us a better wedge along the anterior column. We then removed the devices and removed additional disk space and additional ventral portions of the vertebral body, right down to very close to the ALL. We then replaced these devices. I was more happy with them and they were expanded. Again they were up from lateral to medial trajectory. The posterior portions of the devices were lateral to on the spinal canal itself and both the exiting T10 nerve roots had been taken and were not in jeopardy from these devices or the placement of these devices. They were both expanded according to company specification. We placed BMP in the disk space and we placed bony autograft between the devices before expansion. This reduced the kyphosis partially. Additional note, just prior to placing the devices, after we performed our pedicle subtraction osteotomy, the kyphosis indeed reduced partially with just this maneuver and there was some buckling of the posterior scar tissue of the dura into the spinal canal. There was not bone at all, it was just simply scar that was attached to the T10 and because the kyphosis was reducing this caused some buckling. Motors were stable throughout. There was really no compression or any firm compression on the thecal sac, just buckling of the dura. To prevent this we placed a single curved rafael down, temporary rafael on the left-hand side, and distracted, and this solved this problem while we finished our pedicle subtraction osteotomy. I mention this because this rafael had to be discarded and it was a necessary part of the procedures, so we used a temporary 50 mm rafael on the left-hand side, as a necessary part of the procedure to protect the spinal cord. After we placed our devices we were able to completely remove this rafael on the left, the problem had been solved. After placement of our intervertebral devices we were somewhat happy with reduction of the kyphosis. We then drilled and decorticated all the bone from T6 all the way down to L3 for posterior lateral arthrodesis at each of those levels. We then took straight titanium rods, placed them down from L3-T6, put a slight bend in them, but they were still basically sticking out of the wound, and we put rafael reducers rostrally and marched these rods down on the screws and this reduced the kyphosis. We distracted slightly at the kyphotic level to prevent some buckling of the dura. We got excellent reduction of the kyphosis itself. Then we final tightened all the cap screws according to company specification. We then took bony autograft and placed it posterolaterally bilaterally and placed a large amount of autograft between T10 and T11 and BMP was placed posterolaterally bilaterally from T6-L3. We also placed a fair amount of autograft at L2-3. Put small amounts of autograft at L1-2 and T12-L1 and we used a BMP alone in the rostral portions of the construct. There were small amounts of bone dust that had been spread along these areas as well when we decorticated. We placed a subfascial drain. We then began closing the incision. This too was complicated by the loops of the intrathecal catheter and the inferior portion of the exposure. We had to take considerable time not to put a suture through the catheter and did not suture the catheter itself. We were eventually able to do this but did take additional time. Placed a running PDS in the inferior portion of the incision. Placed Steri-Strips down and then followed this with dressing. The patient was reversed from anesthesia, extubated, and transferred to the recovery room in stable condition. There were no complications. COMPLICATIONS: None. COMPLICATING FACTORS: The patient had an intrathecal pump entering the thecal sac at the L2-3 interspace and the pump had to be both protected and the intrathecal catheter was protected, the inferior portion of the dissection making the dissection much more difficult. This added approximately 40 minutes to the procedure, suturing and dissecting around the intrathecal catheter without removing it. INSTRUMENTATION: Solera 5.5 system with elevated intervertebral devices 7 x 23 mm. Complications none. /[id number]/MODL MTDD
[2016-11-02] MEDS: BUDESONIDE 0.5 MG/2 ML AMPUL.NEB NEB SCH (09:42)
--- NOTE | 2016-11-02 09:51 | NEUSURGPN ---
Assessment/Plan: 51 yr old female T6-L3 fusion with T11 ORIF/pedicle subtraction osteotomy for T11 fracture and kyphosis - POD#1 Plan: -Precedex, ICU - monitor BP and hold precedex for low BP. currently on low dose due to BP issues. -Patient has Dilaudid pain pump, pharmacy consulted to help adjust medications in conjunction with her home medications -PT/OT when able to ambulate -[employer] Professional ordered to fit for rigid TLSO brace with extension bias (clamshell), will need to wear brace when out of bed -YVON in place -DC patel once ambulatory -Start Lovenox POD #3 -Will continue Vanco dosed by pharm until culture results -Post op xrays ordered for 11/02 -Call neurosurgery with any questions/concerns Subjective: Pt resting in bed, c/o back pain Objective: AAOx3 MAEx4 Follows all commands Motor 5/5 BLE +LT Patel in YVON in place Urinary Catheter in Place: Yes Urinary Catheter Indication: Surgical Requirement Catheter Insertion Date: 11/01/16 Neurosurgery Physical Exam - Vitals, I&O, Labs I and O 11/01/16 11/02/16 11/03/16 05:59 05:59 05:59 Intake Total 3500 Output Total 2520 125 Balance 980 -125 Weight 81.647 kg 81.647 kg Intake: Oral (ml) 500 IV Infused (ml) 2450 Dexmedetomidine HCl 400 100 mcg In Ns 100 ml @ Titrate IV CONT ROBLES Rx#: [id number] Ns 1,000 ml @ 75 mls/hr 2350 IV CONT ROBLES Rx#: [id number] Packed Red Blood Cells ( 550 ml) Output: Urine (ml) 2100 Catheter 2100 YVON Drain Output (ml) 420 125 #1 Left Posterior Back 420 125 [facility] Microbiology 11/01/16 15:00 Mycobacterial Smear (ZHAO) - Final Back - Tissue 11/01/16 15:00 Gram Stain - Final Back - Tissue 11/01/16 13:03 Gram Stain - Final Other - Eswab Vital Signs Temp Pulse Resp BP Pulse Ox 36.8 C 92 8 L 93/43 L 94 11/02/16 08:00 11/02/16 08:00 11/02/16 08:00 11/02/16 08:00 11/02/16 08:00 Laboratory Results 11/02/16 05:35 11/02/16 04:15 ICD10 Worksheet Patient Problems: Problems Problem Status Onset Chronic pain Acute S/P hardware removal Acute
[2016-11-02 16:25] LABS: HEMATOCRIT 22.6 % (38.0-47.0); HEMOGLOBIN 7.5 g/dL (12.6-16.3)
--- NOTE | 2016-11-02 16:55 | GCON ---
[f rep st] CONSULTATION Corrected report PULMONARY/CRITICAL CARE CONSULTATION DATE OF CONSULTATION: 11/02/2016 REFERRING PHYSICIAN: Harvey Bailey MD REASON FOR REFERRAL: Evaluation and management of anemia and sleep apnea. HISTORY: The patient is a 51-year-old woman with a history of chronic back pain. She first had surgery in 2009, and then underwent hardware removal not long after that. She has had nerve stimulator, as well as a pain pump. She had surgery by Dr. Bailey in June of this year. In August she developed increased pain , and was found to have a T11 compression fracture that had not responded to conservative therapy, so she was admitted and underwent a reduction of a dislocated segment, as well as osteotomy and instrumentation. Estimated blood loss was 600 cc. She had an uneventful night with the exception of increased pain in the operative area. She continues to report pain greater than typical, and is greater than her baseline pain, but has been fairly well managed with IV Dilaudid, as well as Precedex. She was able to get to a chair with some assistance this morning. PAST MEDICAL HISTORY: 1. Chronic back pain, status post thoracic and lumbar surgeries. 2. Obstructive sleep apnea. The patient was diagnosed and was treated with CPAP by Dr. Prater from [place]. She reports that she has good control of her symptoms. 3. Allergies primarily rhinitis, had treated with nasal steroids, as well as Singulair. 4. Migraines. 5. History of DVT in the left. 6. Status post venous stenting. 7. Lupus anticoagulant. 8. Protein C deficiency. MEDICATIONS: At the time of admission include: Flonase, Benadryl, Lidoderm patch, Belsomra, MiraLAX, Singulair, Synthroid, Valium, Lovenox, Fosamax, loxapine, oxycodone, morphine, aspirin, botulinum toxin, Ritalin, olanzapine, omeprazole, Lyrica, Ambien, and hydromorphone pump. ALLERGIES: Penicillin and sulfa. SOCIAL HISTORY: The patient denies smoking. FAMILY HISTORY: Unremarkable. REVIEW OF SYSTEMS: A 10-point review of systems adds nothing to the history of present illness. PHYSICAL EXAMINATION: GENERAL: The patient is awake, alert, and slightly sedated. VITAL SIGNS: Blood pressure is 105/53, with a heart rate of 102. She is afebrile. Oxygen saturations are 96% on 2 L of oxygen. HEENT: Normocephalic and atraumatic. No icterus. NECK: No JVD. Trachea is midline. CHEST: Clear to auscultation. CARDIAC: Regular rate and rhythm without murmur. ABDOMEN: Soft, nontender. Bowel sounds are present. EXTREMITIES: No clubbing, cyanosis, or edema. NEURO: The patient is slightly sedated, but arouses easily and answers questions appropriately and attentively. She has no gross motor weakness. LABORATORY DATA: Hemoglobin is 8.6, up from 6.5 after 2 unit packed red blood cell transfusion. Her hemoglobin on admission was 14.1. Platelet count is 156. On a chemistry group, her carbon dioxide level is 21. C-reactive protein is 35. ASSESSMENT: 1. Status post thoracic spine surgery. The patient has, as expected, significant pain and has baseline opioid dependence. Her pain is fairly well controlled with IV, as well as oral narcotics and Precedex. 2. Obstructive sleep apnea. This is being currently treated with CPAP, and she has been using her home device here. 3. Anemia. This is expected after her surgery with blood loss and IV fluid replacement. Her hemoglobin came up as expected after transfusion. She has mild tachycardia could be related to this. 4. History of deep vein thrombosis. The patient is currently off anticoagulation, and is at high risk for recurrence given her history of protein -C, lupus anticoagulant, and DVT status post a stent. Anticoagulation is currently anticoagulated in the immediate postoperative. RECOMMENDATIONS: 1. Follow hemoglobin. 2. SCDs at all times when not ambulating. 3. Continue Precedex and Dilaudid for pain control. Try to decreased Precedex over the next 24-48 hours. /[id number]/MODL Tania worktype, 11/04/16, jeane BROWN
[2016-11-02] MEDS: TRIMETHOPRIM 100 MG TAB PO SCH (21:12)
[2016-11-02] MEDS: MONTELUKAST SODIUM 10 MG TAB PO SCH (21:12)
[2016-11-03] MEDS: VANCOMYCIN 1.25 GM in D5W 250 ML IV SCH ×2 (02:59→15:18)
[2016-11-03 05:00] LABS: HEMATOCRIT 20.5 % (38.0-47.0); MEAN CELL HEMOGLOBIN 29.3 pg (27.9-34.1); MEAN CELL HEMOGLOBIN CONCENTR. 32.7 g/dL (32.4-36.7); MEAN CELL VOLUME 89.5 fL (81.5-99.8); RED BLOOD CELL COUNT 2.29 10^6/uL (4.18-5.33); RED CELL DISTRIBUTION WIDTH 15.9 % (11.5-15.2)
[2016-11-03 05:02] LABS: HEMOGLOBIN 6.7 g/dL (12.6-16.3)
[2016-11-03 05:10] LABS: ANION GAP 4 mEq/L (8-16); CALCIUM 7.5 mg/dL (8.5-10.4); CARBON DIOXIDE 25 mEq/l (22-31); CHLORIDE 112 mEq/L (97-110); CREATININE 0.7 mg/dL (0.6-1.0); GLOMERULAR FILTRATION RATE > 60; GLUCOSE 106 mg/dL (70-100); SODIUM 141 mEq/L (134-144)
[2016-11-03] MEDS: ACETAMINOPHEN 500 MG TAB PO SCH ×3 (06:10→20:53)
[2016-11-03] MEDS: LEVOTHYROXINE 50 MCG TAB PO SCH (06:11)
[2016-11-03] MEDS: DIAZEPAM 10 MG TAB PO PRN (06:14)
[2016-11-03] MEDS: BUDESONIDE 0.5 MG/2 ML AMPUL.NEB NEB SCH (08:03)
[2016-11-03] MEDS: CALCIUM CARBONATE 500 MG TAB PO SCH (08:48)
[2016-11-03] MEDS: DULoxetine 60 MG CAP PO SCH (08:49)
[2016-11-03] MEDS: MAGNESIUM OXIDE 400 MG TAB PO SCH (08:49)
[2016-11-03] MEDS: SENNOSIDES/DOCUSATE SODIUM TAB PO SCH ×2 (08:49→20:53)
[2016-11-03] MEDS: morphINE SR 30 MG TAB PO SCH ×2 (08:49→20:53)
[2016-11-03] MEDS: CETIRIZINE 10 MG TAB PO SCH (08:49)
[2016-11-03] MEDS: PREGABALIN 100 MG CAP PO SCH ×3 (08:49→20:54)
[2016-11-03] MEDS: FAMOTIDINE 20 MG TAB PO SCH ×2 (08:49→20:52)
[2016-11-03] MEDS: PANTOPRAZOLE SODIUM 40 MG TAB PO SCH (08:49)
[2016-11-03] MEDS: SODIUM CL NASAL 45 ML BTL NS SCH (08:50)
[2016-11-03] MEDS: HYDROmorphONE/DILAUDID 1 MG/ML SYR IVP PRN ×5 (09:11→15:21)
[2016-11-03] MEDS: METHOCARBAMOL 750 MG TAB PO PRN (10:03)
--- NOTE | 2016-11-03 10:07 | NEUSURGPN ---
Assessment/Plan: 51 yr old female T6-L3 fusion with T11 ORIF/pedicle subtraction osteotomy for T11 fracture and kyphosis - POD#2 Plan: -Precedex, ICU - monitor BP and hold precedex for low BP. currently on low dose due to BP issues. -Patient has Dilaudid pain pump, pharmacy consulted to help adjust medications in conjunction with her home medications -PT/OT when able to ambulate -HH - 6.7/20.5 - transfuse 2 units PRBC and recheck in AM -If IV fails ok to place PICC -Trimmer Buffing Wheel ordered to fit for rigid TLSO brace with extension bias (clamshell), will need to wear brace when out of bed -YVON in place -DC patel once ambulatory -Start Lovenox POD #3 -Will continue Vanco dosed by pharm until culture results -Post op xrays pending -Tingling in RUE - likely due to positioning - continue to monitor this -Call neurosurgery with any questions/concerns Subjective: Pt resting in bed, states she was able to get up OOB yesterday. Objective: AAOx3 NAD VSS MAEx4 Motor 5/5 BUE/BLE Decreased sensation right forearm and hand - otherwise intact sensation Incision dressed cdi YVON with serosanguineous dc in bulb Urinary Catheter in Place: Yes Urinary Catheter Indication: Surgical Requirement (to be removed today) Catheter Insertion Date: 11/01/16 Neurosurgery Physical Exam - Vitals, I&O, Labs I and O 11/02/16 11/03/16 11/04/16 05:59 05:59 05:59 Intake Total 3500 4901.7 Output Total 2520 3260 Balance 980 1641.7 Weight 81.647 kg Intake: Oral (ml) 500 2700 IV Infused (ml) 2450 2201.7 Dexmedetomidine HCl 400 100 110.7 mcg In Ns 100 ml @ Titrate IV CONT ROBLES Rx#: [id number] Ns 1,000 ml @ 75 mls/hr 2350 2091 IV CONT ROBLES Rx#: [id number] Packed Red Blood Cells ( 550 ml) Output: Urine (ml) 2100 2900 Catheter 2100 2900 YVON Drain Output (ml) 420 360 #1 Left Posterior Back 420 360 [facility] Microbiology 11/01/16 13:03 Gram Stain - Final Other - Eswab 11/01/16 15:00 Gram Stain - Final Back - Tissue 11/01/16 15:00 Mycobacterial Smear (ZHAO) - Final Back - Tissue Vital Signs Temp Pulse Resp BP Pulse Ox 36.8 C 91 13 103/52 L 100 11/03/16 09:00 11/03/16 10:00 11/03/16 10:00 11/03/16 10:00 11/03/16 10:00 Laboratory Results 11/03/16 04:45 11/03/16 04:45 ICD10 Worksheet Patient Problems: Problems Problem Status Onset Chronic pain Acute S/P hardware removal Acute
--- NOTE | 2016-11-03 11:55 | PDINTPN ---
[facility] Progress Note Assessment/Plan: Assessment: S/P T-spine surgery: Recovering well. Has acute on chronic pain, although pain is worse in right shoulder, ? related to positioning during surgery. Anemia: Hgb down. Getting transfusion. GOMEZ: On CPAP. Hx DVT, lupus anticoagulant/Protein C deficiency: On SCDs. Plan: Repeat Hgb after transfusion, further transfusions PRN. Wean off Precedex. Continue SCDs, resume anticoagulation as soon as permitted by NS. Transfer to SDU. 11/03/16 11:52 Subjective: C/O pain, mostly in the right shoulder and arm. Also has back pain at surgical site. Appetite fairly good, taking PO. Moved to chair with assistance. Objective: Vital Signs Temp Pulse Resp BP Pulse Ox 36.8 C 97 17 105/59 L 99 11/03/16 09:00 11/03/16 11:00 11/03/16 11:00 11/03/16 11:00 11/03/16 11:00 Microbiology 11/01/16 15:00 Gram Stain - Final Back - Tissue 11/01/16 13:03 Gram Stain - Final Other - Eswab 11/01/16 15:00 Mycobacterial Smear (ZHAO) - Final Back - Tissue Laboratory Results 11/03/16 04:45 11/03/16 04:45 11/02/16 11/03/16 11/04/16 05:59 05:59 05:59 Intake Total 3500 4901.7 Output Total 2520 3260 Balance 980 1641.7 Physical Exam - Physical Exam General Appearance: alert, no apparent distress EENT: normal ENT inspection Neck: normal inspection Respiratory: lungs clear, normal breath sounds Cardiac/Chest: regular rate, rhythm, No edema Abdomen: normal bowel sounds, non-tender Skin: normal color, warm/dry Extremities: non-tender Neuro/Psych: alert, normal mood/affect, oriented x 3 ICD10 Worksheet Patient Problems: Problems Problem Status Onset Chronic pain Acute S/P hardware removal Acute
[2016-11-03 13:52] LABS: HEMATOCRIT 32.1 % (38.0-47.0); HEMOGLOBIN 10.4 g/dL (12.6-16.3)
[2016-11-03] MEDS: oxyCODONE IR 15 MG TAB PO PRN (15:52)
[2016-11-03] MEDS: MONTELUKAST SODIUM 10 MG TAB PO SCH (20:52)
[2016-11-03] MEDS: TRIMETHOPRIM 100 MG TAB PO SCH (20:53)
[2016-11-04] MEDS: VANCOMYCIN 1.25 GM in D5W 250 ML IV SCH ×2 (03:03→15:34)
[2016-11-04] MEDS: LEVOTHYROXINE 50 MCG TAB PO SCH (05:49)
[2016-11-04] MEDS: ACETAMINOPHEN 500 MG TAB PO SCH ×3 (05:49→20:20)
[2016-11-04] MEDS: METHOCARBAMOL 750 MG TAB PO PRN ×3 (05:56→21:49)
[2016-11-04 06:33] LABS: HEMATOCRIT 25.1 % (38.0-47.0); HEMOGLOBIN 8.2 g/dL (12.6-16.3); MEAN CELL HEMOGLOBIN 29.1 pg (27.9-34.1); MEAN CELL HEMOGLOBIN CONCENTR. 32.7 g/dL (32.4-36.7); RED BLOOD CELL COUNT 2.82 10^6/uL (4.18-5.33); RED CELL DISTRIBUTION WIDTH 15.9 % (11.5-15.2)
[2016-11-04] MEDS: HYDROmorphONE/DILAUDID 1 MG/ML SYR IVP PRN ×7 (06:35→23:26)
[2016-11-04 07:05] LABS: ANION GAP 5 mEq/L (8-16); CALCIUM 8.1 mg/dL (8.5-10.4); CARBON DIOXIDE 27 mEq/l (22-31); CHLORIDE 108 mEq/L (97-110); CREATININE 0.7 mg/dL (0.6-1.0); GLOMERULAR FILTRATION RATE > 60; GLUCOSE 86 mg/dL (70-100); POTASSIUM 4.1 mEq/L (3.5-5.2); SODIUM 140 mEq/L (134-144)
--- NOTE | 2016-11-04 07:37 | NEUSURGPN ---
Date of Surgery: 11/01/16 Post Op Day: 3 Assessment/Plan: 51 yr old female T6-L3 fusion with T11 ORIF/pedicle subtraction osteotomy for T11 fracture and kyphosis - POD#3 Plan: -Patient has Dilaudid pain pump, pharmacy consulted to help adjust medications in conjunction with her home medications -PT/OT when able to ambulate -HH - 8.2/25.1, defer to medicine to transfuse -If IV fails ok to place PICC -Manager Presentation ordered to fit for rigid TLSO brace with extension bias (clamshell), will need to wear brace when out of bed-measurements taken, will have brace Friday -DC YVON -ok Start Lovenox POD#3 -Will continue Vanco dosed by pharm until culture results -Post op xrays pending-waiting for brace to arrive tomorrow to get standing xrays -Tingling in RUE - likely due to positioning - continue to monitor this -Will likely need rehab when able to dc -Will follow up with pain doctor when discharged for post op management -Call neurosurgery with any questions/concerns Subjective: Patient has expected back pain Objective: AAOx3 NAD VSS MAEx4 Motor 5/5 BUE/BLE Decreased sensation right forearm and hand - otherwise intact sensation Incision dressed cdi YVON with serosanguineous drainage in bulb Neuro Check Frequency: per routine Urinary Catheter in Place: No Catheter Insertion Date: 11/01/16 - Physician Discussed Patient with : Leo Patient Seen by : Leo Neurosurgery Physical Exam - Vitals, I&O, Labs I and O 11/03/16 11/04/16 11/05/16 05:59 05:59 05:59 Intake Total 4901.7 4035 Output Total 3260 4695 Balance 1641.7 -660 Weight 95 kg Intake: Oral (ml) 2700 2300 IV Intake (ml) 300 IV Infused (ml) 2201.7 635 Dexmedetomidine HCl 400 110.7 mcg In Ns 100 ml @ Titrate IV CONT ROBLES Rx#: [id number] Ns 1,000 ml @ 75 mls/hr 2091 635 IV CONT ROBLES Rx#: [id number] Packed Red Blood Cells ( 800 ml) Output: Urine (ml) 2900 4400 Catheter 2900 4400 YVON Drain Output (ml) 360 295 #1 Left Posterior Back 360 295 [facility] 11/01/16 15:00 Gram Stain - Final Back - Tissue 11/01/16 13:03 Gram Stain - Final Other - Eswab Vital Signs Temp Pulse Resp BP Pulse Ox 36.8 C 84 12 94/47 L 96 11/03/16 20:00 11/04/16 04:00 11/04/16 04:00 11/04/16 04:00 11/04/16 04:00 Laboratory Results 11/04/16 06:30 11/04/16 06:30 ICD10 Worksheet Patient Problems: Problems Problem Status Onset Chronic pain Acute S/P hardware removal Acute
[2016-11-04] MEDS ORDERED: ALENDRONATE SODIUM 70 MG TAB PO SCH (07:45)
[2016-11-04] MEDS: ENOXAPARIN 40 MG/0.4 ML SYR SC SCH (08:08)
[2016-11-04] MEDS: POLYETHYLENE GLYCOL 3350 17 GM PKT PO PRN (08:09)
[2016-11-04] MEDS: CALCIUM CARBONATE 500 MG TAB PO SCH (08:09)
[2016-11-04] MEDS: PREGABALIN 100 MG CAP PO SCH ×3 (08:09→20:19)
[2016-11-04] MEDS: PANTOPRAZOLE SODIUM 40 MG TAB PO SCH (08:09)
[2016-11-04] MEDS: SENNOSIDES/DOCUSATE SODIUM TAB PO SCH ×2 (08:10→20:20)
[2016-11-04] MEDS: CETIRIZINE 10 MG TAB PO SCH (08:10)
[2016-11-04] MEDS: MAGNESIUM OXIDE 400 MG TAB PO SCH (08:10)
[2016-11-04] MEDS: morphINE SR 30 MG TAB PO SCH ×2 (08:10→20:19)
[2016-11-04] MEDS: DULoxetine 60 MG CAP PO SCH (08:10)
[2016-11-04] MEDS: FAMOTIDINE 20 MG TAB PO SCH ×2 (08:10→20:19)
[2016-11-04] MEDS: SODIUM CL NASAL 45 ML BTL NS SCH (08:36)
[2016-11-04] MEDS: BUDESONIDE 0.5 MG/2 ML AMPUL.NEB NEB SCH (08:45)
[2016-11-04] MEDS: oxyCODONE IR 15 MG TAB PO PRN ×2 (15:34→21:49)
[2016-11-04] MEDS ORDERED: PROMETHAZINE HCL 25 MG TAB PO PRN (17:57)
[2016-11-04] MEDS ORDERED: RIZATRIPTAN BENZOATE 10 MG PO PRN (18:03)
[2016-11-04] MEDS: diphenhydrAMINE 25 MG CAP PO PRN (18:10)
[2016-11-04] MEDS: MONTELUKAST SODIUM 10 MG TAB PO SCH (20:20)
[2016-11-04] MEDS: TRIMETHOPRIM 100 MG TAB PO SCH (20:20)
[2016-11-04] MEDS: DIAZEPAM 5 MG TAB PO PRN (22:08)
[2016-11-04] MEDS: FLUTICASONE NASAL 120 SPRAYS/16 GM MDI EACHNARE PRN (22:29)
[2016-11-04] MEDS: NS 1,000 ML IV SCH (23:26)
[2016-11-05] MEDS: VANCOMYCIN 1.25 GM in D5W 250 ML IV SCH ×2 (02:50→15:45)
[2016-11-05] MEDS: ACETAMINOPHEN 325 MG TAB PO SCH ×3 (05:27→21:38)
[2016-11-05] MEDS: METHOCARBAMOL 750 MG TAB PO PRN ×2 (05:27→20:17)
[2016-11-05] MEDS: oxyCODONE IR 15 MG TAB PO PRN ×3 (05:27→20:18)
[2016-11-05] MEDS: LEVOTHYROXINE 50 MCG TAB PO SCH (05:27)
[2016-11-05] MEDS: POLYETHYLENE GLYCOL 3350 17 GM PKT PO PRN (05:36)
[2016-11-05] MEDS ORDERED: PHARMACY PAIN CONSULT 1 EA MISC SCH (08:15)
[2016-11-05] MEDS: ENOXAPARIN 40 MG/0.4 ML SYR SC SCH (09:15)
[2016-11-05] MEDS: SENNOSIDES/DOCUSATE SODIUM TAB PO SCH ×2 (09:16→20:18)
[2016-11-05] MEDS: MAGNESIUM OXIDE 400 MG TAB PO SCH (09:16)
[2016-11-05] MEDS: PREGABALIN 100 MG CAP PO SCH ×3 (09:16→21:38)
[2016-11-05] MEDS: morphINE SR 30 MG TAB PO SCH ×2 (09:16→20:18)
[2016-11-05] MEDS: CALCIUM CARBONATE 500 MG TAB PO SCH (09:17)
[2016-11-05] MEDS: DULoxetine 60 MG CAP PO SCH (09:17)
[2016-11-05] MEDS: CETIRIZINE 10 MG TAB PO SCH (09:18)
[2016-11-05] MEDS: PANTOPRAZOLE SODIUM 40 MG TAB PO SCH (09:18)
[2016-11-05] MEDS: FAMOTIDINE 20 MG TAB PO SCH ×2 (09:18→20:18)
[2016-11-05 10:02] LABS: HEMATOCRIT 29.3 % (38.0-47.0); HEMOGLOBIN 9.5 g/dL (12.6-16.3)
--- NOTE | 2016-11-05 10:25 | NEUSURGPN ---
Date of Surgery: 11/01/16 Post Op Day: 4 Assessment/Plan: 51 yr old female T6-L3 fusion with T11 ORIF/pedicle subtraction osteotomy for T11 fracture and kyphosis - POD#4 Plan: -Patient has Dilaudid IT pain pump, consult placed for pharmacy pain consult in effort to wean off IVP medications to transition to rehab/home -Continuous pulse ox at bedside -PT/OT when able to ambulate -HH - trending up today 29.3/9.5 -If IV fails ok to place PICC -Search Consultant ordered to fit for rigid TLSO brace with extension bias (clamshell), will need to wear brace when out of bed-measurements taken, will have brace today -ok Start Lovenox POD#3 -Will continue Vanco dosed by pharm until culture results -Post op xrays pending-waiting for brace to arrive today to get standing xrays -Tingling in RUE - likely due to positioning -Will likely need rehab when able to dc-rehab order consult placed -Left message with patient's pain specialist (Dr Cedillo) requesting post op pain management when discharged-will follow up with him when discharged -Call neurosurgery with any questions/concerns Subjective: Expected back pain Objective: NAD VSS MAEx4 Motor 5/5 BUE/BLE Decreased sensation right forearm and hand - otherwise intact sensation Incision dressed cdi Neuro Check Frequency: per routine Urinary Catheter in Place: No Catheter Insertion Date: 11/01/16 - Physician Discussed Patient with : Leo Patient Seen by : Leo Neurosurgery Physical Exam - Vitals, I&O, Labs I and O 11/04/16 11/05/16 11/06/16 05:59 05:59 05:59 Intake Total 4035 2875 772 Output Total 4695 5410 600 Balance -660 -2535 172 Weight 95 kg Intake: Oral (ml) 2300 2000 500 IV Intake (ml) 300 253 IV Infused (ml) 635 622 272 Ns 1,000 ml @ 75 mls/hr 635 372 272 IV CONT ROBLES Rx#: [id number] Vancomycin 1.25 gm In D5w 250 250 ml @ 166.667 mls/hr IV Q12H ROBLES Rx#: [id number] Packed Red Blood Cells ( 800 ml) Output: Urine (ml) 4400 5400 600 Catheter 4400 5400 600 YVON Drain Output (ml) 295 10 #1 Left Posterior Back 295 10 Ulises Barba Other: Intake Quantity Yes Sufficient Microbiology 11/01/16 15:00 Mycobacterial Smear (ZHAO) - Final Back - Tissue 11/01/16 15:00 Gram Stain - Final Back - Tissue 11/01/16 13:03 Gram Stain - Final Other - Eswab Vital Signs Temp Pulse Resp BP Pulse Ox 36.7 C 80 12 105/71 96 11/05/16 07:52 11/05/16 07:52 11/05/16 07:52 11/05/16 07:52 11/05/16 07:52 Laboratory Results 11/05/16 09:56 11/04/16 06:30 ICD10 Worksheet Patient Problems: Problems Problem Status Onset Chronic pain Acute S/P hardware removal Acute
[2016-11-05] MEDS: BUDESONIDE 0.5 MG/2 ML AMPUL.NEB NEB SCH (10:29)
[2016-11-05] MEDS: SODIUM CL NASAL 45 ML BTL NS SCH (11:10)
[2016-11-05] MEDS: TRIMETHOPRIM 100 MG TAB PO SCH (20:17)
[2016-11-05] MEDS: MONTELUKAST SODIUM 10 MG TAB PO SCH (20:20)
[2016-11-06] MEDS: oxyCODONE IR 15 MG TAB PO PRN (03:59)
[2016-11-06] MEDS: METHOCARBAMOL 750 MG TAB PO PRN ×2 (03:59→17:31)
[2016-11-06] MEDS: LEVOTHYROXINE 50 MCG TAB PO SCH (05:20)
[2016-11-06] MEDS: ACETAMINOPHEN 325 MG TAB PO SCH ×3 (05:20→21:22)
--- NOTE | 2016-11-06 07:47 | NEUSURGPN ---
Date of Surgery: 11/01/16 Post Op Day: 5 Assessment/Plan: Assessment: 51 yr old female s/p T6-L3 fusion with T11 ORIF/pedicle subtraction osteotomy for T11 fracture and kyphosis - POD#5 Plan: -Patient has Dilaudid IT pain pump, consult placed for pharmacy pain consult in effort to wean off IVP medications to transition to rehab/home-off IV pain meds but working on PO equivalents -Continuous pulse ox at bedside -PT/OT when able to ambulate -If IV fails ok to place PICC -dressing removed and changed -Field Training Agent ordered to fit for rigid TLSO brace with extension bias (clamshell), will need to wear brace when out of bed-measurements taken, will have brace later -ok Start Lovenox POD#3 -Post op xrays pending-waiting for brace to arrive to get standing xrays -Tingling in RUE - likely due to positioning -Will likely need rehab when able to dc-rehab order consult placed -Dr Cedillo requesting post op pain management when discharged-will follow up with him when discharged -Call neurosurgery with any questions/concerns Subjective: Awake and alert. Pt with continued pain control issues. No wells/neck/chest/abd or gu complaints. No f/c/n/v/d. Objective: NAD VSS MAEx4 Motor 5/5 BUE/BLE Decreased sensation right forearm and hand - otherwise intact sensation Incision dressed cdi-dressing changed Neuro Check Frequency: per routine Catheter Insertion Date: 11/01/16 - Physician Discussed Patient with : Leo Patient Seen by : Leo Neurosurgery Physical Exam - Vitals, I&O, Labs I and O 11/05/16 11/06/16 11/07/16 05:59 05:59 05:59 Intake Total 2875 1972 175 Output Total 5410 4900 Balance -2535 -2928 175 Intake: Oral (ml) 2000 1250 175 IV Intake (ml) 253 IV Infused (ml) 622 722 Ns 1,000 ml @ 75 mls/hr 372 472 IV CONT ROBLES Rx#: [id number] Vancomycin 1.25 gm In D5w 250 250 250 ml @ 166.667 mls/hr IV Q12H ROBLES Rx#: [id number] Output: Urine (ml) 5400 4900 Catheter 5400 4900 YVON Drain Output (ml) 10 #1 Left Posterior Back 10 Ulises Barba Other: Intake Quantity Yes Sufficient Number of Stools Catheter 1 Microbiology 11/01/16 15:00 Gram Stain - Final Back - Tissue 11/01/16 13:03 Gram Stain - Final Other - Eswab 11/01/16 15:00 Mycobacterial Smear (ZHAO) - Final Back - Tissue Vital Signs Temp Pulse Resp BP Pulse Ox 36.6 C 64 15 109/76 95 11/06/16 07:23 11/06/16 07:23 11/06/16 07:23 11/06/16 07:23 11/06/16 07:23 Laboratory Results 11/05/16 09:56 11/04/16 06:30 ICD10 Worksheet Patient Problems: Problems Problem Status Onset Chronic pain Acute S/P hardware removal Acute
[2016-11-06] MEDS: ENOXAPARIN 40 MG/0.4 ML SYR SC SCH (09:06)
[2016-11-06] MEDS: CALCIUM CARBONATE 500 MG TAB PO SCH (09:07)
[2016-11-06] MEDS: FAMOTIDINE 20 MG TAB PO SCH ×2 (09:07→20:35)
[2016-11-06] MEDS: PANTOPRAZOLE SODIUM 40 MG TAB PO SCH (09:07)
[2016-11-06] MEDS: CETIRIZINE 10 MG TAB PO SCH (09:07)
[2016-11-06] MEDS: DULoxetine 60 MG CAP PO SCH (09:07)
[2016-11-06] MEDS: PREGABALIN 100 MG CAP PO SCH ×3 (09:07→21:22)
[2016-11-06] MEDS: morphINE SR 30 MG TAB PO SCH ×3 (09:07→21:22)
[2016-11-06] MEDS: SENNOSIDES/DOCUSATE SODIUM TAB PO SCH ×2 (09:07→20:35)
[2016-11-06] MEDS: FLUTICASONE NASAL 120 SPRAYS/16 GM MDI EACHNARE PRN (09:09)
[2016-11-06] MEDS: BUDESONIDE 0.5 MG/2 ML AMPUL.NEB NEB SCH (09:49)
[2016-11-06] MEDS: MAGNESIUM OXIDE 400 MG TAB PO SCH (10:06)
[2016-11-06] MEDS: SODIUM CL NASAL 45 ML BTL NS SCH (17:58)
[2016-11-06] MEDS: TRIMETHOPRIM 100 MG TAB PO SCH (20:35)
[2016-11-06] MEDS: MONTELUKAST SODIUM 10 MG TAB PO SCH (20:35)
[2016-11-07] MEDS: ACETAMINOPHEN 325 MG TAB PO SCH ×3 (05:38→22:37)
[2016-11-07] MEDS: LEVOTHYROXINE 50 MCG TAB PO SCH (05:38)
[2016-11-07] MEDS: METHOCARBAMOL 750 MG TAB PO PRN ×2 (05:38→20:13)
[2016-11-07] MEDS: CETIRIZINE 10 MG TAB PO SCH (08:07)
[2016-11-07] MEDS: morphINE SR 30 MG TAB PO SCH ×3 (08:07→22:37)
[2016-11-07] MEDS: PANTOPRAZOLE SODIUM 40 MG TAB PO SCH (08:07)
[2016-11-07] MEDS: PREGABALIN 100 MG CAP PO SCH ×3 (08:07→22:37)
[2016-11-07] MEDS: MAGNESIUM OXIDE 400 MG TAB PO SCH (08:07)
[2016-11-07] MEDS: DULoxetine 60 MG CAP PO SCH (08:07)
[2016-11-07] MEDS: CALCIUM CARBONATE 500 MG TAB PO SCH (08:07)
[2016-11-07] MEDS: oxyCODONE IR 15 MG TAB PO PRN ×2 (08:07→12:41)
[2016-11-07] MEDS: FAMOTIDINE 20 MG TAB PO SCH ×2 (08:07→20:13)
[2016-11-07] MEDS: POLYETHYLENE GLYCOL 3350 17 GM PKT PO PRN (08:08)
[2016-11-07] MEDS: SENNOSIDES/DOCUSATE SODIUM TAB PO SCH ×2 (08:08→20:13)
[2016-11-07] MEDS: SODIUM CL NASAL 45 ML BTL NS SCH (08:09)
[2016-11-07] MEDS: ENOXAPARIN 40 MG/0.4 ML SYR SC SCH ×2 (08:09→20:13)
[2016-11-07] MEDS ORDERED: HYDROmorphONE/DILAUDID 1 MG/ML SYR IVP PRN (08:55)
--- NOTE | 2016-11-07 11:26 | NEUSURGPN ---
Date of Surgery: 11/01/16 Post Op Day: 6 Assessment/Plan: Assessment: 51 yr old female s/p T6-L3 fusion with T11 ORIF/pedicle subtraction osteotomy for T11 fracture and kyphosis - POD#6 Plan: -Patient has Dilaudid IT pain pump, consult placed for pharmacy pain consult in effort to wean off IVP medications to transition to rehab/home-off IV pain meds but working on PO equivalents -Continuous pulse ox at bedside -Continue with PT/OT to help transition to rehab before weekend if possible -If IV fails ok to place PICC -New dressing CDI -Will continue to wear brace x3 months -ok increase Lovenox to home dosage -Post op xrays stable, viewed by Dr Bailey -Tingling in RUE - likely due to positioning continues -Will likely need rehab when able to dc-rehab order consult placed-patient states she has [facility] -Dr Cedillo requesting post op pain management when discharged-will follow up with him when discharged -Call neurosurgery with any questions/concerns Subjective: Patient having some increased back pain today Objective: NAD VSS MAEx4 Motor 5/5 BUE/BLE Decreased sensation right forearm and hand - otherwise intact sensation Incision dressed cdi Neuro Check Frequency: per routine Urinary Catheter in Place: No Catheter Insertion Date: 11/01/16 - Physician Discussed Patient with : Leo Patient Seen by : Leo Neurosurgery Physical Exam - Vitals, I&O, Labs I and O 11/06/16 11/07/16 11/08/16 05:59 05:59 05:59 Intake Total 1972 1675 Output Total 4900 1000 Balance -2928 675 Intake: Oral (ml) 1250 1675 IV Infused (ml) 722 Ns 1,000 ml @ 75 mls/hr 472 IV CONT ROBLES Rx#: [id number] Vancomycin 1.25 gm In D5w 250 250 ml @ 166.667 mls/hr IV Q12H ROBLES Rx#: [id number] Output: Urine (ml) 4900 1000 Bedside Commode 400 Catheter 4900 Toilet 600 Other: Intake Quantity Yes Yes Sufficient Number of Voids Toilet 2 Number of Stools Catheter 1 Microbiology 11/01/16 15:00 Gram Stain - Final Back - Tissue 11/01/16 13:03 Gram Stain - Final Other - Eswab Vital Signs Temp Pulse Resp BP Pulse Ox 36.7 C 68 18 123/79 H 99 11/07/16 07:52 11/07/16 07:52 11/07/16 07:52 11/07/16 07:52 11/07/16 07:52 Laboratory Results 11/05/16 09:56 11/04/16 06:30 ICD10 Worksheet Patient Problems: Problems Problem Status Onset Chronic pain Acute S/P hardware removal Acute
[2016-11-07] MEDS: MONTELUKAST SODIUM 10 MG TAB PO SCH (20:13)
[2016-11-07] MEDS: TRIMETHOPRIM 100 MG TAB PO SCH (20:13)
[2016-11-08] MEDS: oxyCODONE IR 15 MG TAB PO PRN ×3 (03:10→13:25)
[2016-11-08] MEDS: ACETAMINOPHEN 325 MG TAB PO SCH ×3 (05:40→21:51)
[2016-11-08] MEDS: LEVOTHYROXINE 50 MCG TAB PO SCH (05:41)
--- NOTE | 2016-11-08 07:38 | NEUSURGPN ---
Date of Surgery: 11/01/16 Post Op Day: 7 Assessment/Plan: Assessment: 51 yr old female s/p T6-L3 fusion with T11 ORIF/pedicle subtraction osteotomy for T11 fracture and kyphosis - POD#7 Plan: -Patient has Dilaudid IT pain pump, consult placed for pharmacy pain consult in effort to wean off IVP medications to transition to rehab/home-off IV pain meds but working on PO equivalents -Continuous pulse ox at bedside -Continue with PT/OT -If IV fails ok to place PICC -Will continue to wear brace x3 months -ok increase Lovenox to home dosage -Post op xrays stable, viewed by Dr Bailey -Tingling in RUE - likely due to positioning continues -PT/OT recommending inpatient rehab, case maker actively working on this. Ok to discharge once bed arranged -Dr Cedillo requesting post op pain management when discharged-will follow up with him when discharged -Call neurosurgery with any questions/concerns Subjective: Continues to have back pain. Having right UE numbness and right anterior thigh numbness. Objective: PERRL. EOMI Facial expression symmetrical Muscle strength full at 5/5 Sensation intact Catheter Insertion Date: 11/01/16 - Physician Discussed Patient with : Leo Neurosurgery Physical Exam - Vitals, I&O, Labs I and O 11/07/16 11/08/16 11/09/16 05:59 05:59 05:59 Intake Total 1675 1150 Output Total 1000 850 Balance 675 300 Intake: Oral (ml) 1675 1150 Output: Urine (ml) 1000 850 Bedside Commode 400 Toilet 600 850 Other: Intake Quantity Yes Yes Sufficient Number of Voids Toilet 2 1 Number of Stools Toilet 1 Microbiology 11/01/16 15:00 Gram Stain - Final Back - Tissue 11/01/16 13:03 Gram Stain - Final Other - Eswab Vital Signs Temp Pulse Resp BP Pulse Ox 37.1 C 67 16 133/79 H 94 11/08/16 00:00 11/08/16 00:00 11/08/16 00:00 11/08/16 00:00 11/08/16 00:00 Laboratory Results 11/05/16 09:56 11/04/16 06:30 ICD10 Worksheet Patient Problems: Problems Problem Status Onset Chronic pain Acute S/P hardware removal Acute
[2016-11-08] MEDS: DULoxetine 60 MG CAP PO SCH (08:29)
[2016-11-08] MEDS: FAMOTIDINE 20 MG TAB PO SCH ×2 (08:29→20:35)
[2016-11-08] MEDS: PREGABALIN 100 MG CAP PO SCH ×3 (08:29→21:51)
[2016-11-08] MEDS: MAGNESIUM OXIDE 400 MG TAB PO SCH (08:29)
[2016-11-08] MEDS: CALCIUM CARBONATE 500 MG TAB PO SCH (08:29)
[2016-11-08] MEDS: SENNOSIDES/DOCUSATE SODIUM TAB PO SCH ×2 (08:29→20:35)
[2016-11-08] MEDS: CETIRIZINE 10 MG TAB PO SCH (08:29)
[2016-11-08] MEDS: morphINE SR 30 MG TAB PO SCH ×3 (08:30→21:50)
[2016-11-08] MEDS: PANTOPRAZOLE SODIUM 40 MG TAB PO SCH (08:30)
[2016-11-08] MEDS: ENOXAPARIN 40 MG/0.4 ML SYR SC SCH ×2 (08:32→20:35)
[2016-11-08 11:29] LABS: HEMATOCRIT 30.7 % (38.0-47.0); HEMOGLOBIN 9.8 g/dL (12.6-16.3)
[2016-11-08] MEDS: SODIUM CL NASAL 45 ML BTL NS SCH (12:09)
[2016-11-08] MEDS ORDERED: HYDROmorphONE/DILAUDID 1 MG/ML SYR IVP ONE (15:30)
[2016-11-08] MEDS: TRIMETHOPRIM 100 MG TAB PO SCH (20:35)
[2016-11-08] MEDS: MONTELUKAST SODIUM 10 MG TAB PO SCH (20:35)
[2016-11-08] MEDS: FLUTICASONE NASAL 120 SPRAYS/16 GM MDI EACHNARE PRN (20:37)
[2016-11-09] MEDS: LEVOTHYROXINE 50 MCG TAB PO SCH (05:39)
[2016-11-09] MEDS: ACETAMINOPHEN 325 MG TAB PO SCH ×3 (05:39→22:19)
[2016-11-09] MEDS: METHOCARBAMOL 750 MG TAB PO PRN ×2 (06:06→14:09)
[2016-11-09] MEDS: oxyCODONE IR 15 MG TAB PO PRN ×3 (06:06→15:56)
--- NOTE | 2016-11-09 08:59 | NEUSURGPN ---
Date of Surgery: 11/01/16 Post Op Day: 8 Assessment/Plan: Assessment: 51 yr old female s/p T6-L3 fusion with T11 ORIF/pedicle subtraction osteotomy for T11 fracture and kyphosis - POD#8 Plan: -Patient has Dilaudid IT pain pump, consult placed for pharmacy pain consult in effort to wean off IVP medications to transition to rehab/home-off IV pain meds but working on PO equivalents -Continue with PT/OT -Will order patients home dose of Ambien for sleep -Patient has some urinary stress incontinence with movement -Will continue to wear brace x3 months -ok increase Lovenox to home dosage -Post op xrays stable, viewed by Dr Bailey -Tingling in RUE - likely due to positioning continues -PT/OT recommending inpatient rehab, case making machine operator actively working on this. -Call me for discharge orders if rehab placement is available today, ok to discharge to rehab -Dr Cedillo requesting post op pain management when discharged-will follow up with him when discharged -Call neurosurgery with any questions/concerns Subjective: Patient has expected back pain, waiting to go to rehab Objective: PERRL. EOMI Facial expression symmetrical Muscle strength full at 5/5 Sensation intact Dressing removed, steri strips in place-CDI Neuro Check Frequency: per routine Urinary Catheter in Place: No Catheter Insertion Date: 11/01/16 - Physician Discussed Patient with : Leo Neurosurgery Physical Exam - Vitals, I&O, Labs I and O 11/08/16 11/09/16 11/10/16 05:59 05:59 05:59 Intake Total 1150 1400 Output Total 850 Balance 300 1400 Intake: Oral (ml) 1150 1400 Output: Urine (ml) 850 Toilet 850 Other: Intake Quantity Yes Yes Sufficient Number of Voids Toilet 1 2 Number of Stools Toilet 1 Microbiology 11/01/16 15:00 Gram Stain - Final Back - Tissue 11/01/16 13:03 Gram Stain - Final Other - Eswab Vital Signs Temp Pulse Resp BP Pulse Ox 36.7 C 68 18 132/84 H 95 11/09/16 07:48 11/09/16 07:48 11/09/16 07:48 11/09/16 07:48 11/09/16 07:48 Laboratory Results 11/08/16 11:10 11/04/16 06:30 ICD10 Worksheet Patient Problems: Problems Problem Status Onset Chronic pain Acute S/P hardware removal Acute
[2016-11-09] MEDS ORDERED: ENOXAPARIN 40 MG/0.4 ML SYR SC SCH (09:00)
[2016-11-09] MEDS: morphINE SR 30 MG TAB PO SCH ×3 (09:17→22:19)
[2016-11-09] MEDS: FAMOTIDINE 20 MG TAB PO SCH ×2 (09:19→20:33)
[2016-11-09] MEDS: PREGABALIN 100 MG CAP PO SCH ×3 (09:19→22:19)
[2016-11-09] MEDS: DULoxetine 60 MG CAP PO SCH (09:19)
[2016-11-09] MEDS: PANTOPRAZOLE SODIUM 40 MG TAB PO SCH (09:22)
[2016-11-09] MEDS: CALCIUM CARBONATE 500 MG TAB PO SCH (09:23)
[2016-11-09] MEDS: SENNOSIDES/DOCUSATE SODIUM TAB PO SCH ×2 (09:23→20:33)
[2016-11-09] MEDS: CETIRIZINE 10 MG TAB PO SCH (09:23)
[2016-11-09] MEDS: MAGNESIUM OXIDE 400 MG TAB PO SCH (09:23)
[2016-11-09] MEDS: ENOXAPARIN 40 MG/0.4 ML SYR SC SCH ×2 (09:25→20:33)
[2016-11-09] MEDS: POLYETHYLENE GLYCOL 3350 17 GM PKT PO PRN (09:34)
[2016-11-09] MEDS: SODIUM CL NASAL 45 ML BTL NS SCH (09:39)
[2016-11-09 10:59] LABS: COLOR PALE YELLOW; LEUKOCYTE ESTERASE,URINE NEGATIVE (NEGATIVE); NITRITE,URINE NEGATIVE (NEGATIVE)
[2016-11-09] MEDS: diphenhydrAMINE 25 MG CAP PO PRN (11:33)
[2016-11-09] MEDS: DIAZEPAM 5 MG TAB PO PRN (17:18)
[2016-11-09] MEDS: TRIMETHOPRIM 100 MG TAB PO SCH (20:32)
[2016-11-09] MEDS: MONTELUKAST SODIUM 10 MG TAB PO SCH (20:33)
[2016-11-09] MEDS: ZOLPIDEM TARTRATE 5 MG TAB PO PRN (22:19)
[2016-11-10] MEDS: oxyCODONE IR 15 MG TAB PO PRN ×4 (01:40→20:57)
[2016-11-10] MEDS: METHOCARBAMOL 750 MG TAB PO PRN ×2 (01:40→11:40)
[2016-11-10] MEDS: LEVOTHYROXINE 50 MCG TAB PO SCH (06:02)
[2016-11-10] MEDS: ACETAMINOPHEN 325 MG TAB PO SCH ×3 (06:02→20:56)
[2016-11-10] MEDS: DIAZEPAM 5 MG TAB PO PRN ×2 (06:02→20:57)
--- NOTE | 2016-11-10 08:25 | NEUSURGPN ---
Date of Surgery: 11/01/16 Post Op Day: 9 Assessment/Plan: Assessment: 51 yr old female s/p T6-L3 fusion with T11 ORIF/pedicle subtraction osteotomy for T11 fracture and kyphosis - POD#9 Plan: -Patient has Dilaudid IT pain pump, consult placed for pharmacy pain consult in effort to wean off IVP medications to transition to rehab/home-off IV pain meds but working on PO equivalents/plan -Continue with PT/OT -Will order patients home dose of Ambien for sleep -Patient has some urinary stress incontinence with movement-better -Will continue to wear brace x 3 months-tolerating brace fine -ok increase Lovenox to home dosage -Post op xrays stable, viewed by Dr Bailey already -PT/OT recommending inpatient rehab, pillowcase maker actively working on this. -Call me for discharge orders if rehab placement is available today, ok to discharge to rehab -Dr Cedillo requesting post op pain management when discharged-will follow up with him when discharged -Call neurosurgery with any questions/concerns Subjective: Awake and alert. NAD. Eating/drinking and voiding. No f/c/n/v/d. No wells/neck/ chest/abd or gu complaints. Objective: PERRLA/EOMI Facial expression symmetrical Muscle strength full at 5/5 Sensation intact Dressing removed, steri strips in place-CDI Neuro Check Frequency: per routine Urinary Catheter in Place: No Catheter Insertion Date: 11/01/16 - Physician Discussed Patient with : Sujata Neurosurgery Physical Exam - Vitals, I&O, Labs I and O 11/09/16 11/10/16 11/11/16 05:59 05:59 05:59 Intake Total 1400 1650 350 Output Total 1700 Balance 1400 -50 350 Intake: Oral (ml) 1400 1650 350 Output: Urine (ml) 1700 Toilet 1700 Other: Intake Quantity Yes Yes Sufficient Number of Voids Toilet 2 1 Vital Signs Temp Pulse Resp BP Pulse Ox 36.8 C 79 14 107/66 93 11/10/16 07:48 11/10/16 07:48 11/10/16 07:48 11/10/16 07:48 11/10/16 07:48 Laboratory Results 11/08/16 11:10 11/04/16 06:30 ICD10 Worksheet Patient Problems: Problems Problem Status Onset Chronic pain Acute S/P hardware removal Acute
[2016-11-10] MEDS: POLYETHYLENE GLYCOL 3350 17 GM PKT PO PRN (08:38)
[2016-11-10] MEDS: SENNOSIDES/DOCUSATE SODIUM TAB PO SCH ×2 (08:39→20:55)
[2016-11-10] MEDS: CALCIUM CARBONATE 500 MG TAB PO SCH (08:40)
[2016-11-10] MEDS: CETIRIZINE 10 MG TAB PO SCH (08:42)
[2016-11-10] MEDS: PANTOPRAZOLE SODIUM 40 MG TAB PO SCH (08:43)
[2016-11-10] MEDS: PREGABALIN 100 MG CAP PO SCH ×3 (08:43→20:55)
[2016-11-10] MEDS: DULoxetine 60 MG CAP PO SCH (08:43)
[2016-11-10] MEDS: FAMOTIDINE 20 MG TAB PO SCH ×2 (08:43→20:56)
[2016-11-10] MEDS: MAGNESIUM OXIDE 400 MG TAB PO SCH (08:44)
[2016-11-10] MEDS: morphINE SR 30 MG TAB PO SCH ×3 (08:44→20:56)
[2016-11-10] MEDS: ENOXAPARIN 40 MG/0.4 ML SYR SC SCH ×2 (08:47→20:55)
[2016-11-10] MEDS: SODIUM CL NASAL 45 ML BTL NS SCH (11:34)
[2016-11-10] MEDS: TRIMETHOPRIM 100 MG TAB PO SCH (20:56)
[2016-11-10] MEDS: ZOLPIDEM TARTRATE 5 MG TAB PO PRN (20:57)
[2016-11-10] MEDS: MONTELUKAST SODIUM 10 MG TAB PO SCH (21:04)
[2016-11-11] MEDS: METHOCARBAMOL 750 MG TAB PO PRN ×2 (04:05→09:06)
[2016-11-11] MEDS: oxyCODONE IR 15 MG TAB PO PRN ×2 (04:06→11:57)
[2016-11-11] MEDS: LEVOTHYROXINE 50 MCG TAB PO SCH (05:22)
[2016-11-11] MEDS: ACETAMINOPHEN 325 MG TAB PO SCH (05:22)
[2016-11-11 07:23] VITALS: BP 113/64; PULSE 90; RESP 12; TEMP 98.6; O2SAT 88
[2016-11-11] MEDS: PREGABALIN 100 MG CAP PO SCH (09:05)
[2016-11-11] MEDS: SENNOSIDES/DOCUSATE SODIUM TAB PO SCH (09:05)
[2016-11-11] MEDS: morphINE SR 30 MG TAB PO SCH (09:05)
[2016-11-11] MEDS: CETIRIZINE 10 MG TAB PO SCH (09:06)
[2016-11-11] MEDS: CALCIUM CARBONATE 500 MG TAB PO SCH (09:06)
[2016-11-11] MEDS: DULoxetine 60 MG CAP PO SCH (09:06)
[2016-11-11] MEDS: MAGNESIUM OXIDE 400 MG TAB PO SCH (09:07)
[2016-11-11] MEDS: PANTOPRAZOLE SODIUM 40 MG TAB PO SCH (09:07)
[2016-11-11] MEDS: ENOXAPARIN 40 MG/0.4 ML SYR SC SCH (09:07)
[2016-11-11] MEDS: FAMOTIDINE 20 MG TAB PO SCH (09:07)
[2016-11-11] MEDS: SODIUM CL NASAL 45 ML BTL NS SCH (09:51)
[2016-11-11] MEDS: DIAZEPAM 5 MG TAB PO PRN (11:58)
--- NOTE | 2016-11-11 12:07 | SOAPPROG ---
SOAP Progress Note Assessment/Plan: Assessment: 51 yo F sp T6-L3 fusion Plan: stable PT/OT dc home today discussed with DR Bailey 11/11/16 12:06 11/11/16 12:06 Subjective: back pain improving, no leg pain, no weakness. Objective: Vital Signs Temp Pulse Resp BP Pulse Ox 37.0 C 90 12 113/64 88 L 11/11/16 07:20 11/11/16 07:20 11/11/16 07:20 11/11/16 07:20 11/11/16 07:20 Laboratory Results 11/08/16 11:10 11/04/16 06:30 11/10/16 11/11/16 11/12/16 05:59 05:59 05:59 Intake Total 1650 850 400 Output Total 1700 2300 200 Balance -50 -1450 200 AAOx4, +FC PERRL, EOMI, no facial droop 5/5 + light touch C/D/I ICD10 Worksheet Patient Problems: Problems Problem Status Onset Chronic pain Acute S/P hardware removal Acute
--- NOTE | 2016-11-11 13:03 | PDIAF ---
- Diagnosis Code Status: Full Code - Medication Management Discharge Medications: Medications to Continue on Transfer Acetaminophen [Tylenol ES 500 mg (*)] 1,000 mg PO DAILY PRN 05/30/16 [Last Taken 06/26/16 03:00] Alendronate Sodium [Fosamax 70 MG (*)] 70 mg PO MO 05/30/16 [Last Taken 06/24/16 ] Budesonide [Budesonide 0.5MG/2Ml Neb (*)] 0.5 mg NASAL DAILY 05/30/16 [Last Taken 06/26/16 10:00] Cetirizine [ZyrTEC 10 mg (*)] 10 mg PO DAILY 05/30/16 [Last Taken 06/25/16 19:00 ] DULoxetine [Cymbalta 60 MG (*)] 60 mg PO DAILY 05/30/16 [Last Taken 11/01/16 60MG] Diazepam [Valium 10 MG (*)] 10 mg PO TID PRN 05/30/16 [Last Taken 06/26/16 03:00 ] Enoxaparin [Lovenox 40 MG (*)] 40 mg SQ BID 05/30/16 [Last Taken 10/31/16] Fluticasone Nasal [Flonase Nasal Jakin] 2 sprays EACHNARE DAILY PRN 05/30/16 [ Last Taken 06/25/16 21:00] Herbals/Supplements -Info Only 1 ea PO DAILY 05/30/16 [Last Taken 06/12/16] Levothyroxine [Synthroid 50 mcg (*)] 50 mcg PO DAILY06 05/30/16 [Last Taken ] Lidocaine 5% [Lidoderm 5% Patch (*)] 1 ea TD DAILY PRN 05/30/16 [Last Taken 10/28] Magnesium Oxide [Magnesium Oxide 400 mg (*)] 400 mg PO DAILY 05/30/16 [Last Taken 06/19/16] Montelukast Sodium [Singulair 10 mg (*)] 10 mg PO HS 05/30/16 [Last Taken 21:00] Morphine Sulfate [Morphine Sulfate ER] 30 mg PO BID 05/30/16 [Last Taken 09:15] Mupirocin 2% [Bactroban 2%] 1 rosanne NASAL DAILY 05/30/16 [Last Taken 06/19/16] Polyethylene Glycol 3350 [Miralax 17 gm (*)] 17 gm PO DAILY 05/30/16 [Last Taken Unknown] Promethazine HCl [Phenergan 25mg (*)] 25 mg PO DAILY PRN 05/30/16 [Last Taken ] Suvorexant [Belsomra] 15 mg PO HS PRN 05/30/16 [Last Taken 06/19/16] Trimethoprim [TRIMPEX 100MG (*)] 100 mg PO HS 05/30/16 [Last Taken Unknown] diphenhydrAMINE [Benadryl 25 MG (*)] 25 mg PO ONCE PRN 05/30/16 [Last Taken ] oxyCODONE IR [Oxycodone Ir (*)] 30 mg PO QID PRN 05/30/16 [Last Taken 11/01/16] Botulinum Toxin Type A [Botox] 1 rosanne ID Q84D 10/31/16 [Last Taken 09/17/16] Calcium Carbonate [Oyster Shell Calcium 500 mg (*)] 1,500 mg PO DAILY 10/31/16 [ Last Taken Unknown] Hydromorphone/Bupi Pump 0 mg MISC CONT 10/31/16 [Last Taken Unknown] Methylphenidate HCl [Ritalin 5mg (*)] 15 mg PO BID PRN 10/31/16 [Last Taken Unknown] OLANZapine [ZyPREXA 2.5 mg (*)] 7.5 mg PO HS PRN 10/31/16 [Last Taken Unknown] Omeprazole 40 mg PO DAILY 10/31/16 [Last Taken 11/01/16] Pregabalin [LYRICA] 100 mg PO TID 10/31/16 [Last Taken 11/01/16] Rizatriptan Benzoate [Maxalt Sample Maker] 20 mg PO DAILY PRN 10/31/16 [Last Taken Unknown] Sodium Cl Nasal [Jasper Jakin (*)] 1 spray NS DAILY 10/31/16 [Last Taken Unknown] Zolpidem Tartrate [Ambien 10 mg] 10 mg PO HS PRN 10/31/16 [Last Taken Unknown] Diazepam [Valium 5 MG (*)] 10 mg PO TID PRN #0 tab 11/11/16 [Last Taken Unknown] Methocarbamol [Robaxin 750 mg (*)] 750 mg PO QID PRN #0 tab 11/11/16 [Last Taken Unknown] morphINE SR [MS Contin/Oramorph SR 30 mg (*)] 30 mg PO TID #0 tab 11/11/16 [ Last Taken Unknown] oxyCODONE IR [Oxycodone Ir (*)] 30 - 45 mg PO Q4 PRN #0 tab 11/11/16 [Last Taken Unknown] Discharge Medications: Refer to the Discharge Home Medication list for PRN reason. PICC Care - Routine: N/A - Orders Services needed: Physical Therapy, Occupational Therapy Diet Recommendation: no restrictions on diet Diet Texture: Regular Texture Diet - Follow Up Care Current Providers and Referrals: IRVING HATFIELD [Other]
== END 2016-11-11 15:05 | disposition home health service (06) | DRG 457 ==
LOC: F3N 05:50 → PREOBSVTOIN 10:46 → F2N 18:20 → F3N 11-04 21:33
PROVIDERS: ADMIT Neurological Surgery; ATTEND Neurological Surgery
PROC: 0RG60AJ Fusion of Thoracic Vertebral Joint with Interbody Fusion Device, Posterior Approach, Anterior Column, Open Approach (ICD-10-PCS; principal; 2016-11-01 07:30)
PROC: 0PH404Z Insertion of Internal Fixation Device into Thoracic Vertebra, Open Approach (ICD-10-PCS; principal; 2016-11-01 07:30)
PROC: 0PP404Z Removal of Internal Fixation Device from Thoracic Vertebra, Open Approach (ICD-10-PCS; principal; 2016-11-01 07:30)
PROC: 0P8 Upper Bones, Division (ICD-10-PCS; principal; 2016-11-01 07:30)
PROC: 0RGA071 Fusion of Thoracolumbar Vertebral Joint with Autologous Tissue Substitute, Posterior Approach, Posterior Column, Open Approach (ICD-10-PCS; principal; 2016-11-01 07:30)
PROC: 0RG7071 Fusion of 2 to 7 Thoracic Vertebral Joints with Autologous Tissue Substitute, Posterior Approach, Posterior Column, Open Approach (ICD-10-PCS; principal; 2016-11-01 07:30)
PROC: 0PS40ZZ Reposition Thoracic Vertebra, Open Approach (ICD-10-PCS; principal; 2016-11-01 07:30)
PROC: 0SG10A1 (ICD-10-PCS; principal; 2016-11-01 07:30)
PROC: 0QH004Z Insertion of Internal Fixation Device into Lumbar Vertebra, Open Approach (ICD-10-PCS; principal; 2016-11-01 07:30)
DX: M84.48XA Pathological fracture, other site, initial encounter for fracture (principal); M40.294 Other kyphosis, thoracic region; G47.33 Obstructive sleep apnea (adult) (pediatric); G43.909 Migraine, unspecified, not intractable, without status migrainosus; D68.62 Lupus anticoagulant syndrome; D50.9 Iron deficiency anemia, unspecified; E03.9 Hypothyroidism, unspecified; M79.7 Fibromyalgia; G50.0 Trigeminal neuralgia; F11.20 Opioid dependence, uncomplicated; Z85.828 Personal history of other malignant neoplasm of skin; Z86.718 Personal history of other venous thrombosis and embolism; Z97.8 Presence of other specified devices; Z86.14 Personal history of Methicillin resistant Staphylococcus aureus infection; Z98.1 Arthrodesis status; Z88.0 Allergy status to penicillin; Z88.2 Allergy status to sulfonamides
CPT/HCPCS: 97116-GP; 97161-GP; 97166-GO; 97530-GO; 97530-GP; 97535-GO; C1713; G8978-GP-CK; G8979-GP-CI; G8980-GP-CI; G8987-GO-CL; G8988-GO-CI; J1100; J1170; J1650; J2250; J2370; J2405; J2704; J2780; J3010; J3370; P9016; P9041

== ENCOUNTER 2016-11-18 13:32 | Inpatient (IN) | payer OTHER ==
[2016-11-18] MEDS ORDERED: diphenhydrAMINE 25 MG CAP PO PRN ×2 (14:12→15:43)
[2016-11-18] MEDS ORDERED: ONDANSETRON 4 MG/2 ML VIAL IVP PRN (14:12)
[2016-11-18] MEDS ORDERED: ONDANSETRON DISINTEGRATING 4 MG TAB PO PRN (14:12)
[2016-11-18] MEDS ORDERED: D5W 1/2 NS 1,000 ML IV SCH (14:15)
[2016-11-18] MEDS ORDERED: PHARMACY PAIN CONSULT 1 EA MISC SCH (14:30)
[2016-11-18] MEDS ORDERED: BISACODYL 10 MG SUPP PR PRN (15:21)
[2016-11-18] MEDS ORDERED: MAGNESIUM HYDROXIDE 30 ML UDCUP PO PRN (15:21)
[2016-11-18] MEDS ORDERED: POLYETHYLENE GLYCOL 3350 17 GM PKT PO PRN (15:21)
[2016-11-18] MEDS ORDERED: LACTULOSE 20 GM/30 ML UDCUP PO PRN (15:21)
[2016-11-18] MEDS ORDERED: OLANZapine 2.5 MG TAB PO PRN (15:43)
[2016-11-18] MEDS ORDERED: RIZATRIPTAN BENZOATE PO PRN (15:43)
[2016-11-18] MEDS ORDERED: PROMETHAZINE HCL 25 MG TAB PO PRN (15:43)
[2016-11-18] MEDS ORDERED: NON-FORMULARY NEW DRUG (Zolpidem Tartrate [Ambien 10 Mg] 10 MG) PO PRN (15:43)
[2016-11-18] MEDS ORDERED: Suvorexant [Belsomra] 15 MG PO PRN (15:43)
[2016-11-18] MEDS ORDERED: [UNRECOGNIZED DRUG - OTHER] MISC SCH (15:45)
[2016-11-18] MEDS ORDERED: ALENDRONATE SODIUM 70 MG TAB PO SCH (15:45)
[2016-11-18] MEDS: morphINE SR 30 MG TAB PO SCH ×2 (15:45→21:24)
[2016-11-18] MEDS ORDERED: HYDROMORPHONE MISC SCH (15:45)
[2016-11-18 15:56] LABS: % IMMATURE GRANULYOCYTES 0.4 % (0.0-1.1); ABSOLUTE IMMATURE GRANULOCYTES 0.04 10^3/uL (0.00-0.10); ADD DIFF? NO; ADD MORPH? NO; ADD SCAN? NO; ATYPICAL LYMPHOCYTE FLAG 0 (0-99); FRAGMENT RBC FLAG 0 (0-99); HEMATOCRIT 39.5 % (38.0-47.0); HEMOGLOBIN 12.9 g/dL (12.6-16.3); LEFT SHIFT FLG 0 (0-99); LIPEMIA HEMOLYSIS FLAG 80 (0-99); MEAN CELL HEMOGLOBIN 28.9 pg (27.9-34.1); MEAN CELL HEMOGLOBIN CONCENTR. 32.7 g/dL (32.4-36.7); MEAN CELL VOLUME 88.6 fL (81.5-99.8); MEAN PLATELET VOLUME 11.6 fL (8.7-11.7); PLATELET CLUMPS FLAG 0 (0-99); PLATELET COUNT 369 10^3/uL (150-400); RED BLOOD CELL COUNT 4.46 10^6/uL (4.18-5.33); RED CELL DISTRIBUTION WIDTH 14.3 % (11.5-15.2)
[2016-11-18 16:02] LABS: ALANINE AMINOTRANSFERASE 40 IU/L (9-52); ALBUMIN 4.4 g/dL (3.5-5.0); ALKALINE PHOSPHATASE 236 IU/L (38-126); ANION GAP 15 mEq/L (8-16); ASPARTATE AMINOTRANSFERASE 51 IU/L (14-46); BILIRUBIN,TOTAL 0.7 mg/dL (0.1-1.4); C-REACTIVE PROTEIN 51.8 mg/L (<10.0); CARBON DIOXIDE 23 mEq/l (22-31); CHLORIDE 97 mEq/L (97-110); GLOMERULAR FILTRATION RATE 58; GLUCOSE 97 mg/dL (70-100); POTASSIUM 4.8 mEq/L (3.5-5.2); SODIUM 135 mEq/L (134-144); TOTAL PROTEIN 7.7 g/dL (6.3-8.2)
[2016-11-18 16:49] LABS: SEDIMENTATION RATE 45 MM/HR (0-30)
[2016-11-18] MEDS: PREGABALIN 100 MG CAP PO SCH ×2 (17:00→21:24)
[2016-11-18] MEDS ORDERED: NS W/ 20 KCl/L 1,000 ML IV SCH (17:15)
[2016-11-18 17:24] LABS: COLOR YELLOW; LEUKOCYTE ESTERASE,URINE 1+ (NEGATIVE); NITRITE,URINE NEGATIVE (NEGATIVE)
[2016-11-18 17:26] LABS: MUCUS TRACE /lpf (NONE-1+); WBC,URINE 50-182 /hpf (0-3)
[2016-11-18] MEDS: SODIUM CL NASAL 45 ML BTL NS SCH (19:14)
[2016-11-18] MEDS: METHOCARBAMOL 750 MG TAB PO PRN (19:16)
[2016-11-18] MEDS: SENNOSIDES/DOCUSATE SODIUM TAB PO SCH (19:52)
[2016-11-18] MEDS: ENOXAPARIN 40 MG/0.4 ML SYR SC SCH (19:53)
[2016-11-18] MEDS: MONTELUKAST SODIUM 10 MG TAB PO SCH (19:53)
--- NOTE | 2016-11-18 19:59 | GCON ---
[f rep st] CONSULTATION DATE OF CONSULTATION: 11/18/2016 REFERRING PHYSICIAN: Harvey Bailey MD REASON FOR REFERRAL: Chronic medical issues and management. HISTORY OF PRESENT ILLNESS: A 51-year-old female with history of chronic back pain and multiple franky geries admitted from the neurosurgery clinic with progressive lumbar back pain. The patient recentl y underwent a T6 through L3 fusion, T11 ORIF 11/01/2016. She was discharged a week ago. The pain h as progressed specifically in the lumbar spine region and bilateral groin. She describes the pain a s squeezing, feels like a prior compression fracture. Pain in the groin bilaterally is achy. She d enies any new weakness. She has been wearing her brace when out of bed. She has felt very fatigued and with a decreased appetite. Had a subjective fever a couple of nights ago and chills. Nauseate d today on an empty stomach. No diarrhea. Has intermittent migraines. Denies urinary frequency or dysuria. The patient has a history of a staph infected nerve stimulator that was removed. [facility] ient also reports MRSA infected hardware recently. No micro data demonstrating that here. Cultures 11/01/2016, were negative intraoperatively. She states her tolerable pain level is 5 at home and r eports a 7 today. The patient underwent a thoracic fusion in 2009 complicated by pseudoarthrosis. She then had a revi phyllis. In June 2016 Dr. Bailey removed hardware. She tried a nerve stimulator by Dr. Ramirez, but t his was removed due to a staph infection. She had an intrathecal pain pump placed in 2014. Also re cent T-L compression fracture. Most recent surgery was a T6 through L3 fusion, TLIF ORIF on October. REVIEW OF SYSTEMS: I completed a 10-point review of systems, negative except as noted in HPI. PAST MEDICAL HISTORY: 1. History of recurrent left lower extremity DVT status post 4 stents to the femoral and common fem oral vein. 2. Lupus anticoagulant protein C deficiency clotted through Coumadin, now on Lovenox lifelong. 3. GOMEZ on CPAP. 4. Intrathecal pump 2014. 5. 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 PAST SURGICAL HISTORY: 1. Multiple back surgeries, as stated in HPI. 2. Hysterectomy. 3. Cholecystectomy. 4. Right foot with pin, but this was removed due to infection. SOCIAL HISTORY: Lives with her in [place]. No alcohol, tobacco, or illicits. FAMILY HISTORY: No clots. No CAD. HOME MEDICATIONS: Please see medication reconciliation. ALLERGIES: Penicillin, sulfa, and adhesive tape. PHYSICAL EXAM: VITAL SIGNS: Temperature 36.5, blood pressure 120/79, heart rate 60s to 90s, respir ation 16, 95% on room air. GENERAL: Patient is lying in bed, mildly pale, somewhat tired appearing , but pleasant and smiling. HEENT: PERRLA. Mildly dry mucous membranes. CV: Regular rate and rh ythm. No murmurs, gallops, rubs. LUNGS: Clear to auscultation bilaterally. ABDOMEN: Soft, nonte nder, nondistended. Positive bowel sounds. : Bilateral suprapubic tenderness greater on the lef t. MUSCULOSKELETAL: Thoracic/lumbar surgical incision healing well. She is tender to palpation ov er the thoracic and lumbar spine. The incision is healing. No evidence of cellulitis. NEURO: 2 t hrough 12 intact. PSYCH: Alert and oriented x3. LABS: Pending. ASSESSMENT AND PLAN: 1. Acute on chronic lumbar back pain: This has been progressive since recent surgery. Neurosurger y was concerned of possible infection given history. They will obtain imaging of the thoracic and l umbar spine. Intraoperative cultures were negative at that time. She is currently afebrile. If do es fever, we will check blood cultures. Check a CRP and ESR. 2. Pain control. The patient has an atrial intrathecal pump which we will continue along with MS Curtis ontin three times daily and oxycodone for breakthrough. Also continue Suboxone and neuropathic agen ts. Bowel regimen. 3. History of recurrent left lower extremity deep venous thrombosis: History of lupus anticoagulan t and protein C deficiency. She had previously clotted through Coumadin and is on lifelong Lovenox twice a day. 4. Obstructive sleep apnea. Continue CPAP. 5. Subjective fevers: Concern for possible hardware infection versus other infectious etiology. D oes have some suprapubic tenderness on exam. Will check a UA. Denies cough. Currently afebrile. Check a CBC and CMP. 6. Deep venous thrombosis prophylaxis. Is on a treatment dose of Lovenox. Thank you for this consultation. We will follow along. Please call if any questions. /[id number]/MODL
[2016-11-18] MEDS: TRIMETHOPRIM 100 MG TAB PO SCH (21:23)
[2016-11-19] MEDS: DIAZEPAM 5 MG TAB PO PRN ×3 (01:35→22:07)
[2016-11-19] MEDS: LEVOTHYROXINE 50 MCG TAB PO SCH (05:47)
--- NOTE | 2016-11-19 07:51 | NEUSURGPN ---
Date of Surgery: 11/01/16 Post Op Day: 18 Assessment/Plan: 51 yr old s/p T10-11 osteotomy with posterior fusion T6-L3 with Dr Bailey for fracture resulting in kyphosis Plan: -Patient was discharged last week and has been struggling with pain control and ADL's at home -Patient was direct admit from office yesterday 11/18, full H&P provided from office and is placed on patient chart -Will optimize pain medications/pain control, encourage PO medications -Ordered pain consult with pharmacy, went through patients meds at home as well as last hospitalization to help with management, again will want to encourage PO meds -Wear brace when out of bed -PT/OT -Case management to eval and provide recs for dispo -Patient has positive UTI, will defer to medicine for management Patient was discussed with Dr Bailey, he will see patient later today as well - - Subjective: Patient complaining of back pain Objective: EOMI PERRLA 5/5 BUE 5/5 BLE Sensation intact to light touch BLE Incision CDI Neuro Check Frequency: per routine Urinary Catheter in Place: No - Physician Discussed Patient with : Leo Patient Seen by : Leo Neurosurgery Physical Exam - Vitals, I&O, Labs I and O 11/18/16 11/19/16 11/20/16 05:59 05:59 05:59 Intake Total 850 Output Total 850 Balance 0 Weight 76.9 kg Intake: Oral (ml) 850 Output: Urine (ml) 850 Toilet 850 Other: Number of Voids Toilet 1 Vital Signs Temp Pulse Resp BP Pulse Ox 36.5 C 74 14 106/65 90 L 11/19/16 07:39 11/19/16 07:39 11/19/16 07:39 11/19/16 07:39 11/19/16 07:39 Laboratory Results 11/18/16 15:30 11/18/16 15:30 ICD10 Worksheet Patient Problems: Problems Problem Status Onset Chronic pain Acute S/P hardware removal Acute
[2016-11-19] MEDS: METHOCARBAMOL 750 MG TAB PO PRN ×2 (08:05→16:53)
[2016-11-19] MEDS: morphINE SR 30 MG TAB PO SCH ×3 (08:06→21:37)
--- NOTE | 2016-11-19 08:33 | HOSPPROG ---
Hospitalist Progress Note Assessment/Plan: #UTI: IV CTX. She states tolerated cephs in past. Culture pending #Fatigue: likely due to UTI #Acute on chronic back pain: my concern is that she has not been taking MS Contin consistently at home, ie. will take none some days. Need to get back on regular TID schedule. Will dose MS Contin TID. Can increase afternoon dose tomorrow (evenings are worse time for her) if not improved. #Constipation: bowel regimen #Recurrent DVT: Lovenox lifelong (clotted through coumadin) #Protein C deficiency/lupus anticoagulant: Lovenox #Diet: regular #DVT ppx: on Lovenox Will cont to follow along, please call with questions Time spent on visit: 45 min counseling pt on pain management and d/w Florencia Pacheco with NSGY Subjective: still have groin pain. Back pain 11/21 Objective: Vital Signs Temp Pulse Resp BP Pulse Ox 36.5 C 74 14 106/65 90 L 11/19/16 07:39 11/19/16 07:39 11/19/16 07:39 11/19/16 07:39 11/19/16 07:39 Laboratory Results 11/18/16 15:30 11/18/16 15:30 11/18/16 11/19/16 11/20/16 05:59 05:59 05:59 Intake Total 850 Output Total 850 Balance 0 - Physical Exam Constitutional: no apparent distress, other (tired-appearing) Eyes: PERRL Ears, Nose, Mouth, Throat: moist mucous membranes Cardiovascular: regular rate and rhythym Respiratory: no respiratory distress Gastrointestinal: normoactive bowel sounds Genitourinary: other (left suprapubic TTP, no CVA TTP) Skin: warm Musculoskeletal: other (back surgical incision healing well. No sign of infection. TTP over lumbar spine) Neurologic: AAOx3, CN II-XII Intact Psychiatric: flat affect ICD10 Worksheet Patient Problems: Problems Problem Status Onset Chronic pain Acute S/P hardware removal Acute
[2016-11-19] MEDS ORDERED: NON-FORMULARY NEW DRUG (Omeprazole [Omeprazole] 40 MG) PO SCH (09:00)
[2016-11-19] MEDS ORDERED: Herbals/Supplements -Info Only PO SCH (09:00)
[2016-11-19] MEDS ORDERED: ENOXAPARIN 40 MG/0.4 ML SYR SC SCH (09:00)
[2016-11-19] MEDS: PREGABALIN 100 MG CAP PO SCH ×3 (09:05→21:37)
[2016-11-19] MEDS: CALCIUM CARBONATE 500 MG TAB PO SCH (09:05)
[2016-11-19] MEDS: CETIRIZINE 10 MG TAB PO SCH (09:06)
[2016-11-19] MEDS: ASPIRIN 81 MG CHEWABLE TAB PO SCH (09:06)
[2016-11-19] MEDS: SENNOSIDES/DOCUSATE SODIUM TAB PO SCH ×2 (09:08→21:37)
[2016-11-19] MEDS: PANTOPRAZOLE SODIUM 40 MG TAB PO SCH (09:08)
[2016-11-19] MEDS: DULoxetine 60 MG CAP PO SCH (09:08)
[2016-11-19] MEDS: ENOXAPARIN 40 MG/0.4 ML SYR SC SCH ×2 (09:10→21:38)
[2016-11-19] MEDS: POLYETHYLENE GLYCOL 3350 17 GM PKT PO SCH (09:11)
[2016-11-19] MEDS: HYDROmorphONE/DILAUDID 1 MG/ML SYR IVP PRN ×3 (09:15→22:08)
[2016-11-19] MEDS: SODIUM CL NASAL 45 ML BTL NS SCH ×2 (09:19→21:58)
[2016-11-19] MEDS: BUDESONIDE 0.5 MG/2 ML AMPUL.NEB NEB SCH ×2 (09:25→09:46)
[2016-11-19] MEDS: TRIMETHOPRIM 100 MG TAB PO SCH (21:37)
[2016-11-19] MEDS: MONTELUKAST SODIUM 10 MG TAB PO SCH (21:38)
[2016-11-19] MEDS: ZOLPIDEM TARTRATE 5 MG TAB PO PRN (22:07)
[2016-11-19] MEDS: FLUTICASONE NASAL 120 SPRAYS/16 GM MDI EACHNARE PRN (22:23)
[2016-11-20 05:27] LABS: HEMATOCRIT 34.4 % (38.0-47.0); HEMOGLOBIN 10.8 g/dL (12.6-16.3); MEAN CELL HEMOGLOBIN 28.3 pg (27.9-34.1); MEAN CELL HEMOGLOBIN CONCENTR. 31.4 g/dL (32.4-36.7); MEAN CELL VOLUME 90.3 fL (81.5-99.8); RED BLOOD CELL COUNT 3.81 10^6/uL (4.18-5.33); RED CELL DISTRIBUTION WIDTH 14.1 % (11.5-15.2)
[2016-11-20 05:35] LABS: ANION GAP 7 mEq/L (8-16); CALCIUM 9.4 mg/dL (8.5-10.4); CARBON DIOXIDE 26 mEq/l (22-31); CHLORIDE 99 mEq/L (97-110); GLOMERULAR FILTRATION RATE 58; GLUCOSE 97 mg/dL (70-100); POTASSIUM 4.2 mEq/L (3.5-5.2); SODIUM 132 mEq/L (134-144)
[2016-11-20] MEDS: HYDROmorphONE/DILAUDID 1 MG/ML SYR IVP PRN (05:39)
[2016-11-20] MEDS: METHOCARBAMOL 750 MG TAB PO PRN ×3 (05:40→21:20)
[2016-11-20] MEDS: LEVOTHYROXINE 50 MCG TAB PO SCH (05:40)
[2016-11-20] MEDS: DULoxetine 60 MG CAP PO SCH (08:36)
[2016-11-20] MEDS: PREGABALIN 100 MG CAP PO SCH ×3 (08:36→21:16)
[2016-11-20] MEDS: CETIRIZINE 10 MG TAB PO SCH (08:36)
[2016-11-20] MEDS: CALCIUM CARBONATE 500 MG TAB PO SCH (08:36)
[2016-11-20] MEDS: ASPIRIN 81 MG CHEWABLE TAB PO SCH (08:36)
[2016-11-20] MEDS: SENNOSIDES/DOCUSATE SODIUM TAB PO SCH ×2 (08:36→21:16)
[2016-11-20] MEDS: morphINE SR 30 MG TAB PO SCH ×2 (08:36→21:15)
[2016-11-20] MEDS: POLYETHYLENE GLYCOL 3350 17 GM PKT PO SCH (08:37)
--- NOTE | 2016-11-20 08:37 | NEUSURGPN ---
Date of Surgery: 11/01/16 Post Op Day: 19 Assessment/Plan: 51 yr old s/p T10-11 osteotomy with posterior fusion T6-L3 with Dr Bailey for fracture resulting in kyphosis Plan: -Patient was discharged last week and has been struggling with pain control and ADL's at home -Patient was direct admit from office 11/18, full H&P provided from office and was placed on patient chart -Will optimize pain medications/pain control, encourage PO medications -Wear brace when out of bed -PT/OT -Case management to eval and provide recs for dispo -Patient has positive UTI, will defer to medicine for management -Patient reports that inguinal pain has improved -No need to order MRI's at this time -Will get thoracolumbar xrays to eval hardware-pending -Consulted pharmacy-will discontinue IV Dilaudid, we will stop IV pain medications and increase Oxycodone -Call neurosurgery with questions/concerns - Subjective: Patient feeling better today Objective: EOMI PERRLA 5/5 BUE 5/5 BLE Sensation intact to light touch BLE Incision CDI Neuro Check Frequency: per routine Urinary Catheter in Place: No - Physician Discussed Patient with : Leo Patient Seen by : Leo Neurosurgery Physical Exam - Vitals, I&O, Labs I and O 11/19/16 11/20/16 11/21/16 05:59 05:59 05:59 Intake Total 850 1650 Output Total 850 2175 Balance 0 -525 Weight 76.9 kg Intake: Oral (ml) 850 1525 IV Infused (ml) 125 D5w 1/2 Ns 1,000 ml @ 75 75 mls/hr IV CONT ROBLES Rx#: [id number] cefTRIAXone 1 GM/DEXTROSE 50 50 ml @ 100 mls/hr IV DAILY ROBLES Rx#:[id number] Output: Urine (ml) 850 2175 Toilet 850 2175 Other: Intake Quantity Yes Sufficient Number of Voids Toilet 1 2 Vital Signs Temp Pulse Resp BP Pulse Ox 36.6 C 101 H 16 100/72 96 11/20/16 07:32 11/20/16 07:36 11/20/16 07:36 11/20/16 07:36 11/20/16 07:36 Laboratory Results 11/20/16 05:03 11/20/16 05:03 ICD10 Worksheet Patient Problems: Problems Problem Status Onset Chronic pain Acute S/P hardware removal Acute
[2016-11-20] MEDS: ENOXAPARIN 40 MG/0.4 ML SYR SC SCH ×2 (08:38→21:14)
[2016-11-20] MEDS: PANTOPRAZOLE SODIUM 40 MG TAB PO SCH (08:38)
[2016-11-20] MEDS: ACETAMINOPHEN 325 MG TAB PO PRN (08:43)
[2016-11-20] MEDS: DIAZEPAM 5 MG TAB PO PRN (08:44)
[2016-11-20] MEDS: BUDESONIDE 0.5 MG/2 ML AMPUL.NEB NEB SCH (09:56)
[2016-11-20] MEDS: SODIUM CL NASAL 45 ML BTL NS SCH (10:02)
[2016-11-20] MEDS ORDERED: oxyCODONE IR 5 MG TAB PO PRN (10:20)
--- NOTE | 2016-11-20 14:34 | HOSPPROG ---
Hospitalist Progress Note Assessment/Plan: #UTI: IV CTX. Day 2/3, can stop tomorrow with simple cystitis #Fatigue: improve, likely due to UTI #Acute on chronic back pain: stable hardware on xray -my concern is that she has not been taking MS Contin consistently at home and TID dosing may be too much. Has pain pump too. -Change to BID with increased oxy IR dose for breakthrough -plan for rehab tomorrow #Constipation: bowel regimen #Recurrent DVT: Lovenox lifelong (clotted through coumadin) #Protein C deficiency/lupus anticoagulant: Lovenox #Diet: regular #DVT ppx: on Lovenox Will cont to follow along, please call with questions Subjective: pain in groin resolved Objective: Vital Signs Temp Pulse Resp BP Pulse Ox 36.6 C 84 16 114/71 95 11/20/16 07:32 11/20/16 11:45 11/20/16 11:45 11/20/16 11:45 11/20/16 11:45 Laboratory Results 11/20/16 05:03 11/20/16 05:03 11/19/16 11/20/16 11/21/16 05:59 05:59 05:59 Intake Total 850 1650 Output Total 850 2175 Balance 0 -525 - Time Spent With Patient Time Spent with Patient: greater than 35 minutes (counseling patient on opioid toxcity, pain management) Time Spent with Patient: Greater than 35 minutes spent on this patients care, greater than 50% of time spent counseling, educating, and coordinating care regarding the above mentioned plan. - Physical Exam Constitutional: no apparent distress, other (sleeping in chair) Eyes: PERRL Ears, Nose, Mouth, Throat: moist mucous membranes, hearing normal Cardiovascular: regular rate and rhythym, no murmur, rub, or gallop Respiratory: no respiratory distress, no rales or rhonchi Gastrointestinal: normoactive bowel sounds, soft, non-tender abdomen Genitourinary: no bladder fullness Skin: warm Musculoskeletal: other (clam brace in place) Neurologic: AAOx3, CN II-XII Intact Psychiatric: interacting appropriately, other (mildly fatigued ), No not encephalopathic ICD10 Worksheet Patient Problems: Problems Problem Status Onset Chronic pain Acute S/P hardware removal Acute
[2016-11-20] MEDS: MONTELUKAST SODIUM 10 MG TAB PO SCH (21:15)
[2016-11-20] MEDS: TRIMETHOPRIM 100 MG TAB PO SCH (21:16)
[2016-11-20] MEDS: ZOLPIDEM TARTRATE 5 MG TAB PO PRN (21:20)
[2016-11-20 23:59] VITALS: PULSE 75; RESP 15
[2016-11-21] MEDS: LEVOTHYROXINE 50 MCG TAB PO SCH (04:38)
[2016-11-21] MEDS: FLUTICASONE NASAL 120 SPRAYS/16 GM MDI EACHNARE PRN (04:39)
[2016-11-21] MEDS: ACETAMINOPHEN 325 MG TAB PO PRN ×4 (04:39→17:17)
[2016-11-21 07:34] VITALS: BP 108/61; TEMP 98.2; O2SAT 92
--- NOTE | 2016-11-21 08:09 | NEUSURGPN ---
Date of Surgery: 11/01/16 Post Op Day: 20 Assessment/Plan: 51 yr old s/p T10-11 osteotomy with posterior fusion T6-L3 with Dr Bailey for fracture resulting in kyphosis Plan: -Patient was discharged last week and has been struggling with pain control and ADL's at home -Patient was direct admit from office 11/18, full H&P provided from office and was placed on patient chart -Will optimize pain medications/pain control, encourage PO medications -Wear brace when out of bed -PT/OT -Case management to eval and provide recs for dispo -Patient has positive UTI, will defer to medicine for management -Patient reports that inguinal pain has improved -No need to order MRI's at this time -Will get thoracolumbar xrays to eval hardware-pending -Consulted pharmacy-will discontinue IV Dilaudid, we will stop IV pain medications and increase Oxycodone -Call neurosurgery with questions/concerns - Neurosurgery Physical Exam - Vitals, I&O, Labs I and O 11/20/16 11/21/16 11/22/16 05:59 05:59 05:59 Intake Total 1650 600 Output Total 2175 1550 Balance -525 -950 Intake: Oral (ml) 1525 600 IV Infused (ml) 125 D5w 1/2 Ns 1,000 ml @ 75 75 mls/hr IV CONT ROBLES Rx#: [id number] cefTRIAXone 1 GM/DEXTROSE 50 50 ml @ 100 mls/hr IV DAILY ROBLES Rx#:[id number] Output: Urine (ml) 2175 1550 Toilet 2175 1550 Other: Intake Quantity Yes Yes Sufficient Number of Voids Toilet 2 2 Vital Signs Temp Pulse Resp BP Pulse Ox 36.8 C 75 15 108/61 92 11/21/16 07:31 11/21/16 07:31 11/21/16 07:31 11/21/16 07:31 11/21/16 07:31 Laboratory Results 11/20/16 05:03 11/20/16 05:03 ICD10 Worksheet Patient Problems: Problems Problem Status Onset Chronic pain Acute S/P hardware removal Acute
--- NOTE | 2016-11-21 08:34 | NEUSURGPN ---
Date of Surgery: 11/01/16 Post Op Day: 20 Assessment/Plan: 51 yr old s/p T10-11 osteotomy with posterior fusion T6-L3 with Dr Bailey for fracture resulting in kyphosis Plan: -Wear brace when out of bed -PT/OT -Case management-hoping to be able to get placement for patient today, patients pain is controlled with PO meds -Patient has positive UTI, will defer to medicine for management -Patient reports that inguinal pain has improved -No need to order MRI's at this time -Thorocolumbar Xrays demonstrate stable hardware without evidence or loosening -Call neurosurgery with questions/concerns Subjective: Patient feels pain has improved Objective: EOMI PERRLA 5/5 BUE 5/5 BLE Sensation intact to light touch BLE Incision CDI Neuro Check Frequency: per routine Urinary Catheter in Place: No - Physician Discussed Patient with : Leo Patient Seen by : Leo Neurosurgery Physical Exam - Vitals, I&O, Labs I and O 11/20/16 11/21/16 11/22/16 05:59 05:59 05:59 Intake Total 1650 600 Output Total 2175 1550 Balance -525 -950 Intake: Oral (ml) 1525 600 IV Infused (ml) 125 D5w 1/2 Ns 1,000 ml @ 75 75 mls/hr IV CONT ROBLES Rx#: [id number] cefTRIAXone 1 GM/DEXTROSE 50 50 ml @ 100 mls/hr IV DAILY ROBLES Rx#:[id number] Output: Urine (ml) 2175 1550 Toilet 2175 1550 Other: Intake Quantity Yes Yes Sufficient Number of Voids Toilet 2 2 Vital Signs Temp Pulse Resp BP Pulse Ox 36.8 C 75 15 108/61 92 11/21/16 07:31 11/21/16 07:31 11/21/16 07:31 11/21/16 07:31 11/21/16 07:31 Laboratory Results 11/20/16 05:03 11/20/16 05:03 ICD10 Worksheet Patient Problems: Problems Problem Status Onset Chronic pain Acute S/P hardware removal Acute
[2016-11-21] MEDS: ENOXAPARIN 40 MG/0.4 ML SYR SC SCH (09:10)
[2016-11-21] MEDS: ASPIRIN 81 MG CHEWABLE TAB PO SCH (09:14)
[2016-11-21] MEDS: POLYETHYLENE GLYCOL 3350 17 GM PKT PO SCH (09:14)
[2016-11-21] MEDS: CETIRIZINE 10 MG TAB PO SCH (09:15)
[2016-11-21] MEDS: morphINE SR 30 MG TAB PO SCH (09:15)
[2016-11-21] MEDS: SENNOSIDES/DOCUSATE SODIUM TAB PO SCH (09:15)
[2016-11-21] MEDS: DULoxetine 60 MG CAP PO SCH (09:15)
[2016-11-21] MEDS: PREGABALIN 100 MG CAP PO SCH ×2 (09:15→14:51)
[2016-11-21] MEDS: CALCIUM CARBONATE 500 MG TAB PO SCH (09:15)
[2016-11-21] MEDS: PANTOPRAZOLE SODIUM 40 MG TAB PO SCH (09:15)
[2016-11-21] MEDS: SODIUM CL NASAL 45 ML BTL NS SCH (09:16)
--- NOTE | 2016-11-21 12:26 | HOSPPROG ---
Hospitalist Progress Note Assessment/Plan: 51 yr old w hx of chronic back pain and multple surgeries/ Recently underwent a T6-L3 fusion, T11 ORIF on November 01, 2016. She was discharged a week ago with pain progressing in the lumbar spine region and bilateral groin region. Today is my first encounter w the patient, chart reviewed. * acute on chronic lumbar back pain neurosurgery was concerned about poss infection no fever, CRP and ESR are slightly elevated, has stable wbc count started on Ceftriaxone s/p T10-11 osteotomy with posterior fusion T6-L3 with Dr Bailey for fracture resulting in kyphosis. 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 No further fevers. Objective: Vital Signs Temp Pulse Resp BP Pulse Ox 36.8 C 75 15 108/61 92 11/21/16 07:31 11/21/16 07:31 11/21/16 07:31 11/21/16 07:31 11/21/16 07:31 Microbiology 11/19/16 12:20 Urine Culture - Final Urine,Clean Catch Laboratory Results 11/20/16 05:03 11/20/16 05:03 11/20/16 11/21/16 11/22/16 05:59 05:59 05:59 Intake Total 1650 600 Output Total 2175 1550 350 Balance -525 -950 -350 - Physical Exam Constitutional: no apparent distress, appears nourished, not in pain Eyes: PERRL Ears, Nose, Mouth, Throat: hearing normal Respiratory: no respiratory distress Gastrointestinal: normoactive bowel sounds Skin: warm Neurologic: AAOx3 Psychiatric: interacting appropriately, not anxious ICD10 Worksheet Patient Problems: Problems Problem Status Onset Chronic pain Acute S/P hardware removal Acute
[2016-11-21] MEDS: METHOCARBAMOL 750 MG TAB PO PRN (13:00)
--- NOTE | 2016-11-21 14:03 | PDIAF ---
- Diagnosis Diagnosis: S/P Thoracolumbar fusion 11/01/16, pain control, UTI Code Status: Full Code - Medication Management Discharge Medications: Medications to Continue on Transfer Acetaminophen [Tylenol ES 500 mg (*)] 500 mg PO DAILY PRN 05/30/16 [Last Taken 11/17/16] Alendronate Sodium [Fosamax 70 MG (*)] 70 mg PO Q7D 05/30/16 [Last Taken ] Budesonide [Budesonide 0.5MG/2Ml Neb (*)] 0.5 mg NASAL DAILY 05/30/16 [Last Taken 11/17/16] Cetirizine [ZyrTEC 10 mg (*)] 10 mg PO DAILY 05/30/16 [Last Taken 11/17/16] DULoxetine [Cymbalta 60 MG (*)] 60 mg PO DAILY 05/30/16 [Last Taken 11/18/16] Enoxaparin [Lovenox 40 MG (*)] 40 mg SQ BID 05/30/16 [Last Taken 11/18/16] Fluticasone Nasal [Flonase Nasal Wayne] 2 sprays EACHNARE DAILY PRN 05/30/16 [ Last Taken 11/17/16] Herbals/Supplements -Info Only 1 ea PO DAILY 05/30/16 [Last Taken 06/12/16] Levothyroxine [Synthroid 50 mcg (*)] 50 mcg PO DAILY06 05/30/16 [Last Taken 10/28] Magnesium Oxide [Magnesium Oxide 400 mg (*)] 400 mg PO DAILY 05/30/16 [Last Taken 06/19/16] Montelukast Sodium [Singulair 10 mg (*)] 10 mg PO HS 05/30/16 [Last Taken ] Polyethylene Glycol 3350 [Miralax 17 gm (*)] 17 gm PO DAILY 05/30/16 [Last Taken 11/18/16] Promethazine HCl [Phenergan 25mg (*)] 25 mg PO DAILY PRN 05/30/16 [Last Taken ] Suvorexant [Belsomra] 15 mg PO HS PRN 05/30/16 [Last Taken 11/16/16] Trimethoprim [TRIMPEX 100MG (*)] 100 mg PO HS 05/30/16 [Last Taken 11/17/16] diphenhydrAMINE [Benadryl 25 MG (*)] 25 mg PO ONCE PRN 05/30/16 [Last Taken 08/28] Botulinum Toxin Type A [Botox] 1 rosanne ID [id number] 10/31/16 [Last Taken 09/17/16] Calcium Carbonate [Oyster Shell Calcium 500 mg (*)] 1,500 mg PO DAILY 10/31/16 [ Last Taken Unknown] Hydromorphone/Bupi Pump 0 mg MISC CONT 10/31/16 [Last Taken Unknown] Methylphenidate HCl [Ritalin 5mg (*)] 15 mg PO BID PRN 10/31/16 [Last Taken 04/30] OLANZapine [ZyPREXA 2.5 mg (*)] 7.5 mg PO HS PRN 10/31/16 [Last Taken Unknown] Omeprazole 40 mg PO DAILY 10/31/16 [Last Taken 11/18/16] Pregabalin [LYRICA] 100 mg PO TID 10/31/16 [Last Taken 11/18/16] Rizatriptan Benzoate [[place] [employer] Agent] 20 mg PO DAILY PRN 10/31/16 [Last Taken ] Sodium Cl Nasal [[address] [place] (*)] 1 spray NS DAILY 10/31/16 [Last Taken 11/17/16 ] Zolpidem Tartrate [Ambien 10 mg] 10 mg PO HS PRN 10/31/16 [Last Taken 11/17/16] Diazepam [Valium 5 MG (*)] 10 mg PO TID PRN #0 tab 11/11/16 [Last Taken 11/17/16 ] Aspirin [Aspirin 81mg (*)] 81 mg PO DAILY 11/18/16 [Last Taken 11/18/16] Methocarbamol [Robaxin 750 mg (*)] 750 mg PO TID PRN 11/18/16 [Last Taken ] morphINE SR [MS Contin/Oramorph SR 30 mg (*)] 30 mg PO BID 11/18/16 [Last Taken 11/18/16] oxyCODONE IR [Oxycodone Ir (*)] 30 mg PO BID PRN 11/18/16 [Last Taken 11/18/16] Acetaminophen [Tylenol 325mg (*)] 650 mg PO Q4HRS PRN #0 tab 11/21/16 [Last Taken Unknown] Enoxaparin [Lovenox 40 MG (*)] 40 mg SC BID #0 syr 11/21/16 [Last Taken Unknown] Sennosides/Docusate Sodium [Senokot-S] 1 - 2 tab PO BID #0 tab 11/21/16 [Last Taken Unknown] oxyCODONE IR [Oxycodone Ir (*)] 30 - 45 mg PO Q4 PRN #0 tab 11/21/16 [Last Taken Unknown] Discharge Medications: Refer to the Discharge Home Medication list for PRN reason. PICC Care - Routine: N/A - Orders Services needed: Registered Nurse, Certified Environmental Conservation Officer, Master Application Specialist , Physical Therapy, Occupational Therapy Diet Recommendation: no restrictions on diet Diet Texture: Regular Texture Diet Herr: Not applicable Equipment: Wear clamshell brace when out of bed - Follow Up Care Current Providers and Referrals: Patient,NotPresent [Primary Care Provider] - Meg Bailey MD [Medical Doctor] - 12/19/16 (Please call to schedule follow up in office in one month with new xrays)
[2016-11-21] MEDS: DIAZEPAM 5 MG TAB PO PRN (17:17)
== END 2016-11-21 17:27 | DRG 92 ==
LOC: OBSVTOIN 14:04 → F3N 14:04
PROVIDERS: ADMIT Neurological Surgery; ATTEND Neurological Surgery
DX: G89.28 Other chronic postprocedural pain (principal); M96.3 Postlaminectomy kyphosis; N39.0 Urinary tract infection, site not specified; D68.59 Other primary thrombophilia; G47.33 Obstructive sleep apnea (adult) (pediatric); K59.00 Constipation, unspecified; R79.89 Other specified abnormal findings of blood chemistry; Z98.1 Arthrodesis status; Z79.01 Long term (current) use of anticoagulants; Z86.718 Personal history of other venous thrombosis and embolism
CPT/HCPCS: 97116-GP; 97161-GP; 97165-GO; 97530-GO; 97535-GO; G8978-GO-CK; G8978-GP-CJ; G8979-GO-CI; G8979-GP-CI; J0696; J1170; J1650; J7626

== ENCOUNTER 2017-05-29 08:38 | Inpatient (IN) | payer OTHER ==
[~2017-05-29 08:38] MED LIST changes: -CHLORHEXIDINE GLUC HIBICLENS 118 ML BTL TP ONE; +TRANEXAMIC ACID 1,000 MG in NS (SYRINGE) 50 ML IV ONE; -VANCOMYCIN 1.5 GM in D5W 250 ML IV ONE; +ceFAZolin 2 GM/SWFI 2 GM/20 ML SYR IVP ONE; +fentaNYL 100 MCG/2 ML INJ IT ONE; +morphINE PF 5 MG/10 ML INJ IT ONE
[2017-05-29] MEDS ORDERED: LR 1,000 ML IV ONE (08:55)
[2017-05-29] MEDS ORDERED: ceFAZolin 2 GM/SWFI 20 ML SYR IVP ONE (12:12)
[2017-05-29] MEDS ORDERED: BUPIVACAINE 0.25% 30 ML SDV ONE (13:02)
[2017-05-29] MEDS ORDERED: BACITRACIN 50,000 UNITS/10 ML SYR IRR ONE (13:03)
[2017-05-29] MEDS ORDERED: CHLORHEXIDINE GLUC HIBICLENS 118 ML BTL TP ONE (13:03)
[2017-05-29] MEDS ORDERED: THROMBIN (BOVINE) 5,000 UNIT VIAL TP ONE (13:03)
[2017-05-29] MEDS ORDERED: CITRATE DEXTROSE SOLN 500 ML BAG ONE ×2 (13:03→13:07)
--- NOTE | 2017-05-29 13:07 | PDANEPAE ---
ANE History of Present Illness 51 YO FEMALe with scoliosis and protein C deficiency, presents with B leg weakness and thigh numbness for spinal fusion extension and revision. ANE Past Medical History - Cardiovascular History Hx Hypertension: Yes Hx Arrhythmias: No Hx Chest Pain: No Hx Coronary Artery / Peripheral Vascular Disease: No Hx CHF / Valvular Disease: No Hx Palpitations: No Cardiovascular History Comment: blood clot in Left groin 2011 with stent placement - Pulmonary History Hx COPD: No Hx Asthma/Reactive Airway Disease: No Hx Recent Upper Respiratory Infection: No Hx Oxygen in Use at Home: No Hx Sleep Apnea: Yes Sleep Apnea Screening Result - Last Documented: Positive Pulmonary History Comment: central sleep apnea uses bi-pap - Neurologic History Hx Cerebrovascular Accident: No Hx Seizures: No Hx Dementia: No Neurologic History Comment: Severe Migraines - Endocrine History Hx Diabetes: No Hypothyroid: Yes Obesity: mild Endocrine History Comment: HYPOTHYROID - Renal History Hx Renal Disorders: No - Liver History Hx Hepatic Disorders: No Hepatic History Comment: CHOLECYSTECTOMY - Neurological & Psychiatric Hx Hx Neurological and Psychiatric Disorders: Yes Neurological / Psychiatric History Comment: SITUATIONAL DEPRESSION - Cancer History Hx Cancer: No - Congenital Disorder History Hx Congenital Disorders: No - GI History GERD: moderate Hx Gastrointestinal Disorders: Yes Gastrointestinal History Comment: GERD - Other Health History Other Health History: FIBROMYALGIA. TRIGEMINAL NEURALGIA. BLEEDING DISORDER - LUPUS ANTICOAGULATION. PROTEIN C DEFICIENCY. IRON DEFICIENCY ANEMIA - Chronic Pain History Chronic Pain: Yes (THORACIC PAIN) - Surgical History Prior Surgeries: LUMBAR SPINAL SURG X6(BEGAN 2007). CHOLECYSTECTOMY. R FOOT FX. DVT L GROIN - BYPASS SURG W/4 STENTS. NEUROSTIMULATORS X2 AND REMOVED W/ MRSA INF ALONG W/HAREWARE REMOVAL. SINUS SURG X5 ANE Review of Systems Review of Systems: - Exercise capacity METS (RN): 3 METS - Systems Constitutional: Reports: no symptoms Cardiac: Reports: no symptoms Respiratory: Reports: no symptoms Gastrointestinal: Reports: other (feeling heartburn now) ANE Patient History - Allergies Allergies/Adverse Reactions: adhesive tape Allergy (Verified 06/05/16 16:05) Rash Penicillins Allergy (Verified 05/27/17 15:48) Hives Sulfa (Sulfonamide Antibiotics) Allergy (Verified 06/05/16 16:05) Hives - Home Medications Home Medications: Acetaminophen [Tylenol ES 500 mg (*)] 500 mg PO Q6 PRN 05/23/17 [Last Taken Unknown] Alendronate Sodium [Fosamax 70 MG (*)] 70 mg PO WE@0700 05/23/17 [Last Taken ] Aspirin [Aspirin 81mg (*)] 81 mg PO DAILY 05/23/17 [Last Taken 05/21/17] Calcium Carbonate [Oyster Shell Calcium 500 mg (*)] 1,500 mg PO DAILY 05/23/17 [ Last Taken 05/25/17] Cetirizine [ZyrTEC 10 mg (*)] 10 mg PO HS 05/23/17 [Last Taken 05/28/17] DULoxetine [Cymbalta 60 MG (*)] 60 mg PO DAILY 05/23/17 [Last Taken 05/29/17] Diazepam [Valium 10 MG (*)] 10 mg PO TID PRN 05/23/17 [Last Taken 05/28/17] Enoxaparin [Lovenox 40 MG (*)] 40 mg SQ BID 05/23/17 [Last Taken 05/28/17] FLUoxetine [Prozac 20 MG (*)] 20 mg PO DAILY 05/23/17 [Last Taken 05/29/17] Herbals/Supplements -Info Only 1 ea PO DAILY 05/23/17 [Last Taken 05/25/17] Ketorolac Tromethamine [Toradol 30 mg/ml Inj (*)] 30 mg IM DAILY PRN 05/23/17 [ Last Taken 05/08/17] Levothyroxine [Synthroid 50 mcg (*)] 50 mcg PO DAILY06 05/23/17 [Last Taken ] Magnesium Oxide [Magnesium Oxide 400 mg (*)] 400 mg PO DAILY 05/23/17 [Last Taken 05/25/17] Melatonin [Melatonin 3 MG (*)] 6 mg PO HS 05/23/17 [Last Taken 05/28/17] Methylphenidate HCl [Ritalin 5mg (*)] 15 mg PO BID@ PRN 05/23/17 [Last Taken 05/22/17] Montelukast Sodium [Singulair 10 mg (*)] 10 mg PO HS 05/23/17 [Last Taken ] OLANZapine [ZyPREXA 2.5 mg (*)] 7.5 mg PO HS 05/23/17 [Last Taken 05/28/17] Omeprazole [Prilosec 20 mg] 40 mg PO DAILY 05/23/17 [Last Taken 05/29/17] Polyethylene Glycol 3350 [Miralax 17 gm (*)] 17 gm PO DAILY 05/23/17 [Last Taken 05/15/17] Pregabalin [Lyrica 100mg (*)] 100 mg PO TID 05/23/17 [Last Taken 05/29/17] Promethazine HCl [Phenergan 25mg (*)] 25 mg PO DAILY PRN 05/23/17 [Last Taken ] Pt Own Pain Pump 1 each SQ CONT 05/23/17 [Last Taken 05/29/17] Rizatriptan Benzoate [Maxalt 10mg] 20 mg PO ONETIMEPRN PRN 05/23/17 [Last Taken 05/19/17] Suvorexant [Belsomra] 15 mg PO HS 05/23/17 [Last Taken 05/25/17] Trimethoprim [TRIMPEX 100MG (*)] 100 mg PO DAILY 05/23/17 [Last Taken 05/28/17] Zolpidem Tartrate [Ambien] 10 mg PO HS 05/23/17 [Last Taken 05/27/17] oxyCODONE IR [Oxycodone Ir (*)] 15 mg PO TID PRN 05/23/17 [Last Taken 05/28/17] tiZANidine HCL [Zanaflex 2MG (*)] 4 mg PO TID 05/23/17 [Last Taken 05/27/17] - NPO status NPO Since - Liquids (Date): 05/29/17 NPO Since - Liquids (Time): 05:45 NPO Since - Solids (Date): 05/28/17 NPO Since - Solids (Time): 18:00 - Anes Hx Anes Hx: no prior problems - Smoking Hx Smoking Status: Former smoker (quit in 1987) Marijuana use: No - Alcohol Use Alcohol Use: Sober - Family Anes Hx Family Anes Hx: neg - N/A Family Hx Anesthesia Complications: NEG ANE Labs/Vital Signs - Vital Signs Blood Pressure: 118/80 Heart Rate: 81 Respiratory Rate: 16 O2 Sat (%): 89 Height: 170.18 cm Weight: 90.718 kg ANE Physical Exam - Airway Neck exam: FROM Mallampati Score: Class 2 Mouth exam: normal dental/mouth exam - Pulmonary Pulmonary: clear to auscultation - Cardiovascular Cardiovascular: tachycardia - ASA Status ASA Status: III ANE Anesthesia Plan Anesthesia Plan: general endotracheal anesthesia Lines/Monitors: arterial line, additional IV
[2017-05-29] MEDS ORDERED: MIDAZOLAM 2 MG/2 ML VIAL IVP ONE (13:18)
[2017-05-29] MEDS ORDERED: THROMBIN (BOVINE) 20,000 UNIT VIAL TP ONE (13:23)
[2017-05-29] MEDS ORDERED: MIDAZOLAM 2 MG/2 ML VIAL ONE (13:24)
[2017-05-29] MEDS ORDERED: DEXMEDETOMIDINE HCL 400 MCG in NS 100 ML IV SCH (13:30)
[2017-05-29] MEDS ORDERED: ROCURONIUM 50 MG/5 ML VIAL ONE (13:36)
[2017-05-29] MEDS ORDERED: LIDOCAINE 2% 5 ML SDV ONE (13:36)
[2017-05-29] MEDS ORDERED: REMIFENTANIL HCL 1 MG VIAL ONE (13:36)
[2017-05-29] MEDS ORDERED: HYDROmorphONE/DILAUDID 2 MG/ML INJ ONE (13:36)
[2017-05-29] MEDS ORDERED: DEXMEDETOMIDINE/NS 4MCG/ML 50 ML BTL IV ONE (13:36)
[2017-05-29] MEDS ORDERED: KETAMINE 200 MG/20 ML VIAL ONE ×2 (13:37→16:06)
[2017-05-29] MEDS ORDERED: PROPOFOL/EMULSION 500 MG/50 ML BOTTLE IV ONE (13:37)
[2017-05-29] MEDS ORDERED: fentaNYL 100 MCG/2 ML INJ ONE (14:51)
[2017-05-29] MEDS ORDERED: PHENYLEPHRINE HCL 100 MCG/ML SYR ONE ×2 (15:11→17:00)
[2017-05-29] MEDS ORDERED: ALBUMIN 25% 50 ML SOLN IV ONE (17:01)
[2017-05-29] MEDS ORDERED: ALBUMIN 5% 250 ML BOTTLE IV ONE (17:01)
[2017-05-29] MEDS ORDERED: VASOPRESSIN 20 UNIT/ML VIAL ONE (17:29)
[2017-05-29] MEDS ORDERED: PROPOFOL 200 MG/20 ML VIAL ONE (18:15)
[2017-05-29] MEDS ORDERED: ceFAZolin 1 GM VIAL ONE (18:21)
[2017-05-29] MEDS ORDERED: ONDANSETRON 4 MG/2 ML VIAL ONE (18:56)
[2017-05-29] MEDS ORDERED: PROMETHAZINE HCL 25 MG TAB PO PRN (19:23)
[2017-05-29] MEDS ORDERED: RIZATRIPTAN BENZOATE PO PRN (19:23)
[2017-05-29] MEDS ORDERED: diphenhydrAMINE 25 MG CAP PO PRN (19:28)
[2017-05-29] MEDS ORDERED: ONDANSETRON DISINTEGRATING 4 MG TAB PO PRN (19:28)
[2017-05-29] MEDS ORDERED: BISACODYL 10 MG SUPP PR PRN (19:28)
[2017-05-29] MEDS ORDERED: ONDANSETRON 4 MG/2 ML VIAL IVP PRN (19:28)
[2017-05-29] MEDS ORDERED: NS W/ 20 KCl/L 1,000 ML IV SCH (19:30)
[2017-05-29] MEDS ORDERED: PAIN PUMP SQ SCH (19:30)
[2017-05-29] MEDS ORDERED: HYDROmorphONE/DILAUDID 6 MG/30 ML PCA IV PRN (19:32)
[2017-05-29] MEDS ORDERED: NALOXONE HCL 0.4 MG/ML INJ IVP PRN ×2 (19:32→19:52)
--- NOTE | 2017-05-29 19:34 | SOAPPROG ---
SOAP Progress Note Assessment/Plan: Assessment: 51 yo F sp T3-T10 fusion with T6 PSO Plan: stable to ICU overnight PT/OT SOMI brace to be fit in am by Janeth jarrett for pain control please call with neuro changes 05/29/17 19:32 Subjective: + back pain, no leg pain Objective: Vital Signs Temp Pulse Resp BP Pulse Ox 36.6 C 81 16 118/80 89 L 05/29/17 09:18 05/29/17 13:18 05/29/17 13:18 05/29/17 13:18 05/29/17 13:18 somnolent PERRL, no facial droop TSERING x 4 + light touch ICD10 Worksheet Patient Problems: Problems Problem Status Onset Chronic pain Acute S/P hardware removal Acute
[2017-05-29] MEDS ORDERED: HYDROmorphONE/DILAUDID 1 MG/ML INJ IVP PRN (19:52)
[2017-05-29] MEDS ORDERED: fentaNYL 100 MCG/2 ML INJ IVP PRN (19:52)
[2017-05-29] MEDS ORDERED: LR 500 ML IV PRN (19:52)
[2017-05-29] MEDS ORDERED: DIAZEPAM 10 MG/2 ML SYR IVP PRN (19:52)
[2017-05-29] MEDS ORDERED: PROMETHAZINE HCL 25 MG/ML INJ IVP PRN (19:52)
[2017-05-29] MEDS ORDERED: ALBUTEROL 3 ML DEYVIAL IH PRN (19:52)
--- NOTE | 2017-05-29 19:54 | POSTANESTH ---
Post Anesthetic Evaluation Cardiovascular Status: Normal, Stable Respiratory Status: Normal, Stable Level of Consciousness/Mental Status: Can Participate in Eval, Moderately Sleepy Pain Control: Adequate, Prn Tx Ordered Nausea/Vomiting Control: Adequate, Prn Tx Ordered Complications Possibly Related to Anesthesia: None Noted Notes: Pt following commands, moving extremities x4.
--- NOTE | 2017-05-29 20:16 | GOP ---
[f rep st] OPERATIVE REPORT DATE OF OPERATION: 05/29/2017 SURGEON: Tim Mac MD NEUROSURGEON: Tim Mac MD. FRONT OFFICE ASSISTANT: CAROLINE Briggs. ANESTHESIA: General endotracheal. PREOPERATIVE DIAGNOSIS: T6 fracture with junctional kyphosis and progressive deformity, following la rge multilevel T6-L3 instrumented fusion. Failed conservative care. Intractable pain and progressiv e deformity. Very high risk surgical candidate given extensive comorbidities. POSTOPERATIVE DIAGNOSIS: T6 fracture with junctional kyphosis and progressive deformity, following l arge multilevel T6-L3 instrumented fusion. Failed conservative care. Intractable pain and progressi ve deformity. Very high risk surgical candidate given extensive comorbidities. PROCEDURE PERFORMED: Removal of posterior segmental instrumentation from T6-T10, with exploration of spinal fusion at T12 through L3. Re instrumentation with posterior segmental (pedicle screw) fixati on from T3 through T10 with posterior lateral fusion with local autograft, bone morphogenic protein a nd morselized allograft from T3 through T11. T5-6 bilateral far lateral transpedicular decompression with T5-6 posterior/transforaminal lumbar interbody fusion with local autograft and bone morphogenic protein. T6 pedicle subtraction osteotomy for reduction of deformity. Use of intraoperative microsc opy, fluoroscopy and computer volumetric stereotactic navigation with intraoperative neurophysiologic testing. Injection of intrathecal narcotic analgesics for postoperative pain control. FINDINGS: ESTIMATED BLOOD LOSS: 800 cc. INDICATIONS: The patient is a 51-year-old woman with an extensive past medical and surgical history, who last year underwent a complex reconstructive spine surgery extending from T6 through L3. Recent ly she has had progressive pain at the upper area of her fusion and progressive kyphosis and was foun d to have a T6 fracture/failure of hardware. She presents now for extension of the fusion and reduct ion of her kyphotic deformity and removal and replacement of instrumentation and exploration of the o ther levels of fusion. She has extensive medical problems and is on multiple blood thinners normally but has stopped all those in a timely fashion and is a very high risk surgical candidate. The patie nt understands there are no guarantees for a good outcome. DESCRIPTION OF PROCEDURE: After informed consent was obtained, the patient was taken to the operatin g room and placed in a prone position on the Ulises table. The thoracolumbosacral areas were preppe d and draped in a sterile fashion. After fluoroscopic localization of the correct levels, the subcut aneous and intramuscular tissues were infiltrated with local anesthesia. A midline linear incision w as then created from approximately T3 through T11. This was carried down to the fascial layer, which was incised using monopolar electrocautery and carried in the subfascial plane along the spinous pro cesses and out the lamina bilaterally. The prior instrumentation was identified and carefully dissec lei out. A high speed carbide bur was utilized to cut the rods below T10. The prior instrumentation was removed from T6 through T10. The remainder of the fusion was explored at T12 through L3 and rosanne eared to be solid. There was quite a bit of fibrous tissue from the T6-T10 levels that was extensive ly removed down to fresh bone. Following this, the O-arm neuronavigational system was brought in and 3-D reconstructed images obtained and sent to the Expert station. Using computer volumetric stereo tactic navigation, pedicle screws were placed from T3 through T9. Each individual screw was tested n europhysiologically with monopolar electrostimulation and interpretation of the potentials by the [facility] geon. The O-arm navigational system was also utilized to reconstruct new 3D images that demonstrated good position of all screws. Note that I fully intended to place bicortical screws in order to mini tone the potential for screw pullout and hardware failure. The screws are designed for that with hein nt tips, and I felt that the risk of perforating something anteriorly was lower than the risk of the hardware failure, so I did not go bicortical. Following placement of these screws with excellent pur charles throughout, wide laminectomies were performed at T5 and T6 with a complete facetectomy and unro ofing from essentially T4 down to T7. The coarse jarvis car was then utilized to drill out the ped icles at T6 all the way to the anterior edge of the vertebral body. The T5-6 interspace was identifi ed and carefully the disk was removed and scraped clean, and the endplates prepared. This transforam inal lumbar interbody fusion was combined with the osteotomy. I tried to place a graft anteriorly bu t it would not stay put, and I removed it and gently packed the area with bone morphogenic protein an d morselized autograft. Rods were then placed and secured from T3 down to T10, where a rafael-to-rafael co nnector was placed on each side. I achieved an excellent reduction of her kyphotic deformity and we locked everything into place according to the torque specifications of the manufacture for the Medtro danyell screws. The wound was then copiously irrigated with antibiotic irrigation and meticulous hemosta sis was achieved. After re-verification of good positioning of all the screws and rods and reduction of the deformity, the remaining lamina, facet joints, transverse processes, and spinous processes an d any other bone remaining was extensively decorticated from T3 down to T11 and the local autograft t hat had been removed along with bone morphogenic protein and morselized allograft was placed out late rally for posterolateral fusion from T3 through T11. Following this, a drain was placed. The subcut aneous and intramuscular tissues were re-infiltrated with local anesthesia. The wound was closed in a layered fashion using interrupted Vicryl sutures followed by Steri-Strips on the skin. 200 mcg of Duramorph along with 50 mcg of fentanyl were also injected intrathecally in the lumbar spine through a separate area. COMPLICATIONS: None. DISPOSITION: The patient is currently in the process of being repositioned for extubation. /[id number]/MODL
[2017-05-29] MEDS: SENNOSIDES/DOCUSATE SODIUM TAB PO SCH (20:49)
[2017-05-29] MEDS: MELATONIN 3 MG TAB PO SCH (20:49)
[2017-05-29] MEDS: MONTELUKAST SODIUM 10 MG TAB PO SCH (20:49)
[2017-05-29] MEDS: FAMOTIDINE 20 MG TAB PO SCH (20:49)
[2017-05-29] MEDS: CETIRIZINE 10 MG TAB PO SCH (20:49)
[2017-05-29] MEDS: ZOLPIDEM TARTRATE 5 MG TAB PO SCH (20:50)
[2017-05-29] MEDS: Suvorexant [Belsomra] 15 MG PO SCH (20:50)
[2017-05-29] MEDS: OLANZapine 2.5 MG TAB PO SCH (20:50)
[2017-05-29] MEDS: PREGABALIN 100 MG CAP PO SCH (20:56)
[2017-05-29] MEDS: ceFAZolin 2 GM/SWFI 2 GM/20 ML SYR IVP SCH (21:25)
[2017-05-29] MEDS ORDERED: ceFAZolin 2 GM/DEXTROSE 100 ML IV SCH (22:00)
[2017-05-30] MEDS ORDERED: DEXMEDETOMIDINE IN 0.9 % NACL 50 ML IV SCH
[2017-05-30] MEDS: HYDROmorphONE/DILAUDID 1 MG/ML INJ IVP PRN (02:28)
[2017-05-30] MEDS: oxyCODONE IR 15 MG TAB PO PRN ×3 (02:33→18:07)
[2017-05-30] MEDS: DIAZEPAM 10 MG TAB PO PRN ×3 (02:33→16:59)
[2017-05-30 05:55] LABS: PLATELET COUNT 190 10^3/uL (150-400)
[2017-05-30] MEDS: LEVOTHYROXINE 50 MCG TAB PO SCH (06:18)
[2017-05-30] MEDS: ceFAZolin 2 GM/SWFI 2 GM/20 ML SYR IVP SCH (06:18)
[2017-05-30] MEDS: ENOXAPARIN 40 MG/0.4 ML SYR SC SCH ×2 (08:36→21:02)
[2017-05-30] MEDS: MAGNESIUM OXIDE 400 MG TAB PO SCH (08:36)
[2017-05-30] MEDS: DULoxetine 60 MG CAP PO SCH (08:36)
[2017-05-30] MEDS: PANTOPRAZOLE SODIUM 40 MG TAB PO SCH (08:36)
[2017-05-30] MEDS: TRIMETHOPRIM 100 MG TAB PO SCH (08:36)
[2017-05-30] MEDS: FLUoxetine 20 MG CAP PO SCH (08:37)
[2017-05-30] MEDS: SENNOSIDES/DOCUSATE SODIUM TAB PO SCH ×2 (08:37→21:03)
[2017-05-30] MEDS: CALCIUM CARBONATE 500 MG TAB PO SCH (08:37)
[2017-05-30] MEDS: PREGABALIN 100 MG CAP PO SCH ×3 (08:37→21:05)
[2017-05-30] MEDS: FAMOTIDINE 20 MG TAB PO SCH (08:37)
[2017-05-30] MEDS: METHOCARBAMOL 750 MG TAB PO PRN ×2 (10:14→12:49)
[2017-05-30] MEDS: morphINE SR 15 MG TAB PO SCH ×2 (11:11→21:03)
--- NOTE | 2017-05-30 11:33 | NEUSURGPN ---
Assessment/Plan: Assessment/Plan: Assessment: 51 yo F POD #1 sp T3-T10 fusion with T6 PSO Plan: -Optimize pain management- Will wean off Precedex, start MS Contin(has tolerated this in the past with Dilaudid pump), increase Oxycodone to q3 -If doing well and stable, can transfer to the floor later -Luann brace to be fit today by Plant Reliability Engineer to be worn when up and out of bed -PT/OT -DVT Prophy: TEDS, SCDs, Lovenox to start today -Colten output 250 overnight- continue to full suction -Discussed with Dr. Sukhdeep patel -please call with neuro changes Subjective: Patient has back pain this morning 10/21, no leg pain. Has not been up and out of bed yet. Objective: NAD, VSS Somnolent following commands PERRL, EOMI BLE 5/5 Sensation intact to lt touch Incision c/d/i- dressed COLTEN X1 -output 250 serosang Catheter Insertion Date: 05/29/17 - Physician Discussed Patient with : [facility] Physical Exam - Vitals, I&O, Labs I and O 05/29/17 05/30/17 05/31/17 05:59 05:59 05:59 Intake Total 1441.8 600 Output Total 1100 400 Balance 341.8 200 Weight 90.718 kg Intake: Oral (ml) 700 600 IV Intake (ml) 40 IV Infused (ml) 701.8 Dexmedetomidine HCl 400 76.8 mcg In Ns 100 ml @ Titrate IV CONT ROBLES Rx#: [id number] NS W/ 20 KCl/L 1,000 ml @ 625 75 mls/hr IV CONT ROBLES Rx #:[id number] Output: Urine (ml) 750 310 Catheter 750 310 COLTEN Drain Output (ml) 350 90 Left Back Ulises Barba 350 90 Vital Signs Temp Pulse Resp BP Pulse Ox 36.8 C 94 18 129/84 H 99 05/30/17 10:00 05/30/17 10:00 05/30/17 10:00 05/30/17 10:00 05/30/17 10:00 Laboratory Results 05/30/17 05:30 05/30/17 05:30 ICD10 Worksheet Patient Problems: Problems Problem Status Onset Chronic pain Acute S/P hardware removal Acute
--- NOTE | 2017-05-30 15:42 | ASMTCMCOM ---
CM Note CM Note Notes: Patient is POD #1 T3-T10 fusion with T6 PSO. She is being weaned of Precedex. Risk Control Product Liability Director has fit her for Luann brace, which she can wear when up and out of bed. PT and OT each saw patient today, but evaluations seem to be limited by patient's pain. Recommendations range from SNF to inpatient rehab to home with homecare. It's too early to tell what she will need, so we will follow. Patient lives with her Eduin. Current CM Discharge plan: TBD Date Signed: 05/30/2017 03:41 PM Electronically Signed By:Corine Tavarez RN
--- NOTE | 2017-05-30 17:19 | GCON ---
[f rep st] CONSULTATION PULMONARY/CRITICAL CARE CONSULTATION DATE OF CONSULTATION: 05/30/2017 REFERRING PHYSICIAN: Tim Mac MD REASON FOR REFERRAL: Evaluation and management of sleep apnea and pain. HISTORY: The patient is a 51-year-old woman with a history of chronic pain. She has had several jaleel k surgeries, as well as placement of a nerve stimulator. She had her hardware removed a year ago and was doing well until a little while later she had a pop in her back and then return of severe pain. This was followed by another back surgery in October 2016. She continued to have pain and so was seen by Dr. Mac, who performed a laminectomy and posterior fusion revision yesterday. The patie nt continues to report severe pain, and is on oral as well as BEAD MAKER narcotics, benzodiazepines, and mus tonie relaxants. She is also on Precedex. PAST MEDICAL HISTORY: 1. DVTs. The patient is on daily Lovenox. 2. Obstructive sleep apnea. The patient has been treated with BiPAP and is followed at the [facility]. MEDICATIONS: At the time of admission include MiraLAX, melatonin, Lovenox, Maxalt, Toradol, Valium, Zanaflex, trimethoprim, Prilosec, Singulair, Synthroid, Prozac, Zyrtec, Lyrica, Cymbalta, aspirin, Fo samax, Ambien, Belsomra, Zyprexa, oxycodone, pain pump, Ritalin. ALLERGIES: Penicillin and sulfa. SOCIAL HISTORY: The patient does not smoke. She lives in [place]. FAMILY HISTORY: Unremarkable. REVIEW OF SYSTEMS: A 10-point review of systems adds nothing to the history of present illness. PHYSICAL EXAMINATION: GENERAL: The patient is awake, alert, in no acute distress. VITAL SIGNS: Bl ood pressure is 113/60 with a heart rate of 90. She is afebrile. Oxygen saturations are 100% on 2 L . HEENT: Normocephalic and atraumatic. No icterus. NECK: No JVD. Trachea is midline. CHEST: C lear to auscultation. CARDIAC: Regular rate and rhythm without murmur. ABDOMEN: Soft, nontender. Bowel sounds are present. EXTREMITIES: No clubbing, cyanosis, or edema. NEURO: The patient is so mnolent but arousable and conversant. She has no gross motor or sensory deficits. LABORATORY: Hemoglobin is 9.7. A chemistry group is normal. Her glucose is 101. ASSESSMENT: 1. Status post spine surgery. As expected, the patient has significant pain on top of her chronic p ain. This is being managed with narcotics, benzodiazepines, Precedex. 2. History of deep vein thromboses. The patient has been restarted on Lovenox, currently 40 subcu t wice daily. This can be increased over the next few days. 3. Obstructive sleep apnea. This is treated with BiPAP. The patient has her unit at home. She is napping during the day today and has sleep apnea. RECOMMENDATIONS: 1. Continue pain management and observation in the ICU as per Neurosurgery. 2. Continue Lovenox. 3. Use BiPAP with sleep both at night and also during the day. /[id number]/MODL
[2017-05-30] MEDS: MONTELUKAST SODIUM 10 MG TAB PO SCH (21:03)
[2017-05-30] MEDS: MELATONIN 3 MG TAB PO SCH (21:03)
[2017-05-30] MEDS: CETIRIZINE 10 MG TAB PO SCH (21:04)
[2017-05-30] MEDS: ZOLPIDEM TARTRATE 5 MG TAB PO SCH (21:04)
[2017-05-30] MEDS: OLANZapine 2.5 MG TAB PO SCH (21:06)
[2017-05-30] MEDS: Suvorexant [Belsomra] 15 MG PO SCH (21:06)
[2017-05-30] MEDS ORDERED: NS BOLUS 500 ML (Wide open) IV ONE (22:30)
[2017-05-30] MEDS ORDERED: ALBUMIN 5% 250 ML IV ONE (23:30)
[2017-05-31] MEDS: NS 1,000 ML IV SCH (00:30)
[2017-05-31] MEDS ORDERED: NS BOLUS 500 ML (Wide open) IV ONE (00:30)
[2017-05-31] MEDS: oxyCODONE IR 15 MG TAB PO PRN ×3 (03:09→17:28)
[2017-05-31] MEDS: METHOCARBAMOL 750 MG TAB PO PRN ×2 (03:09→14:59)
[2017-05-31] MEDS: LEVOTHYROXINE 50 MCG TAB PO SCH (05:47)
[2017-05-31] MEDS: PANTOPRAZOLE SODIUM 40 MG TAB PO SCH (08:49)
[2017-05-31] MEDS: FLUoxetine 20 MG CAP PO SCH (08:49)
[2017-05-31] MEDS: SENNOSIDES/DOCUSATE SODIUM TAB PO SCH ×2 (08:50→20:21)
[2017-05-31] MEDS: TRIMETHOPRIM 100 MG TAB PO SCH (08:50)
[2017-05-31] MEDS: CALCIUM CARBONATE 500 MG TAB PO SCH (08:50)
[2017-05-31] MEDS: morphINE SR 15 MG TAB PO SCH ×2 (08:50→20:21)
[2017-05-31] MEDS: DULoxetine 60 MG CAP PO SCH (08:50)
[2017-05-31] MEDS: MAGNESIUM OXIDE 400 MG TAB PO SCH (08:50)
[2017-05-31] MEDS: PREGABALIN 100 MG CAP PO SCH ×3 (08:50→20:21)
[2017-05-31] MEDS: ENOXAPARIN 40 MG/0.4 ML SYR SC SCH ×2 (08:50→20:21)
--- NOTE | 2017-05-31 09:43 | SOAPPROG ---
SOAP Progress Note Assessment/Plan: Assessment: 51 yo F POD #2 T3-T10 fusion with T6 PSO Plan: stable pain control still on icu, intrathecal pain pump at baseline, continue to use po /IV meds for breakthroug Minvera brace when out of bed PT/OT scd/eli/lovenox for dvt prophylaxis may need inpatient rehab please call with neuro changes discussed with Dr Mccall 05/29/17 19:32 05/31/17 09:41 Subjective: continued back pain, no rib pain, no leg pain or weakness. Objective: Vital Signs Temp Pulse Resp BP Pulse Ox 36.9 C 94 18 94/55 L 96 05/31/17 08:00 05/31/17 08:00 05/31/17 08:00 05/31/17 08:00 05/31/17 08:00 Laboratory Results 05/30/17 05:30 05/30/17 05:30 05/30/17 05/31/17 06/01/17 05:59 05:59 05:59 Intake Total 1441.8 4320.5 Output Total 1100 2765 600 Balance 341.8 1555.5 -600 AAOx4, +FC PERRL, EOMI, no facial droop 5/5 + light touch C/D/I ICD10 Worksheet Patient Problems: Problems Problem Status Onset Chronic pain Acute S/P hardware removal Acute
--- NOTE | 2017-05-31 13:02 | PDINTPN ---
Technical Training Specialist Progress Note Assessment/Plan: Assessment/Plan: Status post extensive redo thoracic spine surgery. Back pain: Present as expected. Medications appear appropriate. Was on Precedex last night, off now. May or may not need this again tonight. Anemia: Last hematocrit 31. Will follow CBC tomorrow. Did lose 800 cc blood in surgery. GOMEZ: She has CPAP here, is using it at night Metabolic: No issues identified. Repeat BMP tomorrow. Depression: On multiple medications, stable. Prophylaxis: SCDs, pantoprazole. Continue. Continue care in the intensive care unit. Continue present medications. See problem specific plans above. 25 min of critical care time spent directly with the patient. Discussed with nursing and the ICU multi disciplinary team. Subjective: Doing okay. Complains of expected back pain. Somewhat sleepy. Objective: Vital Signs Temp Pulse Resp BP Pulse Ox 36.9 C 79 10 L 94/48 L 96 05/31/17 08:00 05/31/17 10:00 05/31/17 10:00 05/31/17 10:00 05/31/17 10:00 Laboratory Results 05/30/17 05:30 05/30/17 05:30 05/30/17 05/31/17 06/01/17 05:59 05:59 05:59 Intake Total 1441.8 4320.5 Output Total 1100 2765 600 Balance 341.8 1555.5 -600 Physical Exam - Physical Exam General Appearance: other (Arousable, responsive, appropriate. Sedated secondary to pain medications, falls asleep easily.) EENT: PERRL/EOMI, other (Nasal cannula at 2 L) Neck: normal inspection Respiratory: lungs clear, decreased breath sounds Cardiac/Chest: regular rate, rhythm Abdomen: non-tender, soft, No normal bowel sounds (dereased in a present) Pelvic Exam: other (Herr out, using bedpan) Skin: normal color, warm/dry Extremities: No pedal edema Neuro/Psych: no motor/sensory deficits, No cognition abnormalities ICD10 Worksheet Patient Problems: Problems Problem Status Onset S/P hardware removal Acute Chronic pain Acute
[2017-05-31] MEDS: HYDROmorphONE/DILAUDID 1 MG/ML INJ IVP PRN ×2 (14:59→16:31)
[2017-05-31] MEDS ORDERED: NS 500 ML IV ONE (19:30)
[2017-05-31] MEDS: CETIRIZINE 10 MG TAB PO SCH (20:20)
[2017-05-31] MEDS: MELATONIN 3 MG TAB PO SCH (20:20)
[2017-05-31] MEDS: OLANZapine 2.5 MG TAB PO SCH (20:21)
[2017-05-31] MEDS: MONTELUKAST SODIUM 10 MG TAB PO SCH (20:21)
[2017-05-31] MEDS: ZOLPIDEM TARTRATE 5 MG TAB PO SCH (20:23)
[2017-05-31] MEDS: Suvorexant [Belsomra] 15 MG PO SCH (20:23)
[2017-06-01] MEDS: NS 1,000 ML IV SCH (00:51)
[2017-06-01] MEDS: METHOCARBAMOL 750 MG TAB PO PRN ×3 (04:17→13:24)
[2017-06-01] MEDS: oxyCODONE IR 15 MG TAB PO PRN ×4 (04:17→21:21)
[2017-06-01 04:19] LABS: PLATELET COUNT 133 10^3/uL (150-400)
[2017-06-01] MEDS: LEVOTHYROXINE 50 MCG TAB PO SCH (05:05)
[2017-06-01] MEDS: HYDROmorphONE/DILAUDID 1 MG/ML INJ IVP PRN ×5 (05:10→15:29)
[2017-06-01] MEDS: DIAZEPAM 10 MG TAB PO PRN ×2 (05:10→09:15)
[2017-06-01] MEDS: FLUoxetine 20 MG CAP PO SCH (08:29)
[2017-06-01] MEDS: TRIMETHOPRIM 100 MG TAB PO SCH (08:29)
[2017-06-01] MEDS: ENOXAPARIN 40 MG/0.4 ML SYR SC SCH ×2 (08:29→21:18)
[2017-06-01] MEDS: SENNOSIDES/DOCUSATE SODIUM TAB PO SCH ×2 (08:29→21:20)
[2017-06-01] MEDS: morphINE SR 15 MG TAB PO SCH (08:29)
[2017-06-01] MEDS: CALCIUM CARBONATE 500 MG TAB PO SCH (08:29)
[2017-06-01] MEDS: DULoxetine 60 MG CAP PO SCH (08:29)
[2017-06-01] MEDS: MAGNESIUM OXIDE 400 MG TAB PO SCH (08:29)
[2017-06-01] MEDS: PREGABALIN 100 MG CAP PO SCH ×3 (08:29→21:21)
[2017-06-01] MEDS: PANTOPRAZOLE SODIUM 40 MG TAB PO SCH (08:29)
--- NOTE | 2017-06-01 09:22 | SOAPPROG ---
SOAP Progress Note Assessment/Plan: Assessment: 51 yo F POD #3 T3-T10 fusion with T6 PSO Plan: stable pain control still on icu, intrathecal pain pump at baseline, continue to use po /IV meds for breakthroug Minvera brace when out of bed PT/OT scd/lei/lovenox for dvt prophylaxis may need inpatient rehab please call with neuro changes discussed with Dr Mccall 05/29/17 19:32 05/31/17 09:41 06/01/17 09:19 Subjective: continued back pain, no leg pain, no weakness Objective: Vital Signs Temp Pulse Resp BP Pulse Ox 36.6 C 98 17 108/51 L 96 06/01/17 08:00 06/01/17 08:00 06/01/17 08:00 06/01/17 08:00 06/01/17 08:00 Laboratory Results 06/01/17 04:00 06/01/17 04:00 05/31/17 06/01/17 06/02/17 05:59 05:59 05:59 Intake Total 4320.5 3284 Output Total 2765 3000 Balance 1555.5 284 AAOx4, +FC PERRL, EOMI, no facial droop 5/5 + light touch C/D/I ICD10 Worksheet Patient Problems: Problems Problem Status Onset Chronic pain Acute S/P hardware removal Acute
[2017-06-01] MEDS ORDERED: morphINE SR 15 MG TAB PO ONE (09:36)
[2017-06-01] MEDS ORDERED: morphINE SR 15 MG TAB PO SCH (09:39)
--- NOTE | 2017-06-01 09:43 | PDINTPN ---
Job Checker Progress Note Assessment/Plan: Assessment: Status post extensive redo thoracic spine surgery. Back pain: Present as expected. Off Precedex for 36 hours. Still having significant pain, as expected, requiring frequent dosing of PRN narcotics in addition to low-dose MS Contin. Anemia: Hgb down to 8.1. Did lose 800 cc blood in surgery. GOMEZ: She has BiPAP here, is using it at night Depression: On multiple medications, stable. Prophylaxis: SCDs, pantoprazole. Continue. GI: Eating well. No BM yet. Plan: Will double dose of MS Contin. Bowel protocol. Follow Hgb. Start FeSO4. D/C IVF. OK to transfer to floor. 06/01/17 09:58 06/01/17 09:59 Subjective: Slept OK last night until about 4AM. C/O back pain only partially relieved with PRN medications, which she's using frequently. Walking to BR frequently. No BM yet. Objective: Vital Signs Temp Pulse Resp BP Pulse Ox 36.6 C 98 17 108/51 L 96 06/01/17 08:00 06/01/17 08:00 06/01/17 08:00 06/01/17 08:00 06/01/17 08:00 Laboratory Results 06/01/17 04:00 06/01/17 04:00 05/31/17 06/01/17 06/02/17 05:59 05:59 05:59 Intake Total 4320.5 3284 Output Total 2765 3000 Balance 1555.5 284 Physical Exam - Physical Exam General Appearance: alert, no apparent distress EENT: normal ENT inspection Neck: normal inspection Respiratory: lungs clear, normal breath sounds Cardiac/Chest: regular rate, rhythm, No edema Abdomen: non-tender, soft, No normal bowel sounds (diminished) Skin: normal color, warm/dry Extremities: normal range of motion, non-tender Neuro/Psych: alert, normal mood/affect, oriented x 3 ICD10 Worksheet Patient Problems: Problems Problem Status Onset Chronic pain Acute S/P hardware removal Acute
[2017-06-01] MEDS: FERROUS SULFATE 325 MG TAB PO SCH (14:44)
[2017-06-01] MEDS: ZOLPIDEM TARTRATE 5 MG TAB PO SCH (21:18)
[2017-06-01] MEDS: OLANZapine 2.5 MG TAB PO SCH (21:19)
[2017-06-01] MEDS: MELATONIN 3 MG TAB PO SCH (21:19)
[2017-06-01] MEDS: CETIRIZINE 10 MG TAB PO SCH (21:21)
[2017-06-01] MEDS: morphINE SR 30 MG TAB PO SCH (21:21)
[2017-06-01] MEDS: MONTELUKAST SODIUM 10 MG TAB PO SCH (21:22)
[2017-06-01] MEDS: MAGNESIUM HYDROXIDE 30 ML UDCUP PO PRN (21:34)
[2017-06-01] MEDS: Suvorexant [Belsomra] 15 MG PO SCH (22:37)
[2017-06-02] MEDS: oxyCODONE IR 15 MG TAB PO PRN ×3 (04:43→15:19)
[2017-06-02] MEDS: LEVOTHYROXINE 50 MCG TAB PO SCH (05:19)
[2017-06-02] MEDS: DIAZEPAM 5 MG TAB PO PRN (05:19)
--- NOTE | 2017-06-02 07:27 | NEUSURGPN ---
Date of Surgery: 05/29/17 Post Op Day: 4 Assessment/Plan: Assessment: 51 yo F POD #4 T3-T10 fusion with T6 PSO Plan: -neuro stable -pain control-CPM, intrathecal pain pump at baseline, continue to use po/IV meds for breakthrough pain needs -Minvera brace when out of bed -PT/OT-CPM -scd/lei/lovenox for dvt prophylaxis -pt will inpatient rehab -YVON in place -please call with any neuro changes -discussed with Dr Tarango Subjective: Awake and alert. NAD. No new events overnight. No f/c/n/v/d. Objective: AAOx4, +FC PERRLA, EOMI, no facial droop 5/5 + light touch C/D/I Neuro Check Frequency: per routine Urinary Catheter in Place: No Catheter Insertion Date: 05/29/17 - Physician Discussed Patient with : [facility] Physical Exam - Vitals, I&O, Labs I and O 06/01/17 06/02/17 06/03/17 05:59 05:59 05:59 Intake Total 3284 1600 Output Total 3000 830 Balance 284 770 Intake: Oral (ml) 1050 1250 IV Infused (ml) 2234 350 Ns 1,000 ml @ 100 mls/hr 1734 350 IV CONT ROBLES Rx#: [id number] Ns 500 ml @ As Directed 500 IV ONCE ONE Rx#: [id number] Output: Urine (ml) 2625 700 Bedside Commode 2625 Toilet 700 YVON Drain Output (ml) 375 130 Left Back Ulises Barba 375 130 Other: Intake Quantity Yes Sufficient Number of Voids Bedside Commode 1 Toilet 1 Vital Signs Temp Pulse Resp BP Pulse Ox 36.4 C 90 17 93/58 L 91 L 06/02/17 00:00 06/02/17 00:00 06/02/17 00:00 06/01/17 15:58 06/02/17 00:00 Laboratory Results 06/02/17 04:46 06/01/17 04:00 ICD10 Worksheet Patient Problems: Problems Problem Status Onset Chronic pain Acute S/P hardware removal Acute
[2017-06-02] MEDS: morphINE SR 30 MG TAB PO SCH ×2 (08:04→21:08)
[2017-06-02] MEDS: ENOXAPARIN 40 MG/0.4 ML SYR SC SCH ×2 (08:05→21:06)
[2017-06-02] MEDS: DULoxetine 60 MG CAP PO SCH (08:05)
[2017-06-02] MEDS: FERROUS SULFATE 325 MG TAB PO SCH (08:05)
[2017-06-02] MEDS: SENNOSIDES/DOCUSATE SODIUM TAB PO SCH ×2 (08:05→21:08)
[2017-06-02] MEDS: PREGABALIN 100 MG CAP PO SCH ×3 (08:05→21:08)
[2017-06-02] MEDS: MAGNESIUM OXIDE 400 MG TAB PO SCH (08:05)
[2017-06-02] MEDS: CALCIUM CARBONATE 500 MG TAB PO SCH (08:05)
[2017-06-02] MEDS: PANTOPRAZOLE SODIUM 40 MG TAB PO SCH (08:05)
[2017-06-02] MEDS: FLUoxetine 20 MG CAP PO SCH (08:05)
[2017-06-02] MEDS: LACTULOSE 20 GM/30 ML UDCUP PO PRN (08:24)
[2017-06-02] MEDS: TRIMETHOPRIM 100 MG TAB PO SCH (08:55)
--- NOTE | 2017-06-02 12:07 | ASMTCMCOM ---
CM Note CM Note Notes: Met with patient to review dc plan of care. She abd her reside in [place] and she would like to go to [facility] in [place]. Referral sent via [employer]. Response was insurance numbers were invalid. Call to our financials and numbers verified as accurate. Returned call and left message with Lissa to call CM. Cm to follow. Date Signed: 06/02/2017 12:06 PM Electronically Signed By:Leisa Zavala RN
--- NOTE | 2017-06-02 15:56 | ASMTCMCOM ---
CM Note CM Note Notes: [facility] able to verify insurance. Spoke with patient's Efra. They would eally prefer she rehab in [place]. Faxed H&P per request to [facility]. Hopefully here about acceptance soon. Plan to [facility] in [place] when medically cleared for discharge. CM to follow. Date Signed: 06/02/2017 03:55 PM Electronically Signed By:Leisa Zavala RN
[2017-06-02] MEDS: ZOLPIDEM TARTRATE 5 MG TAB PO SCH (21:07)
[2017-06-02] MEDS: OLANZapine 2.5 MG TAB PO SCH (21:07)
[2017-06-02] MEDS: MELATONIN 3 MG TAB PO SCH (21:07)
[2017-06-02] MEDS: CETIRIZINE 10 MG TAB PO SCH (21:07)
[2017-06-02] MEDS: MONTELUKAST SODIUM 10 MG TAB PO SCH (21:07)
[2017-06-02] MEDS: Suvorexant [Belsomra] 15 MG PO SCH (21:13)
[2017-06-03] MEDS: oxyCODONE IR 15 MG TAB PO PRN ×3 (04:17→16:59)
[2017-06-03] MEDS: LEVOTHYROXINE 50 MCG TAB PO SCH (05:47)
--- NOTE | 2017-06-03 07:19 | SOAPPROG ---
SOAP Progress Note Assessment/Plan: Assessment: 51 yo F POD #5 T3-T10 fusion with T6 PSO Plan: stable pain control improving Minvera brace when out of bed PT/OT scd/lei/lovenox for dvt prophylaxis ok to discharge to rehab today may remove YVON today please call with neuro changes discussed with Dr Tarango 05/29/17 19:32 05/31/17 09:41 06/01/17 09:19 06/03/17 07:17 Subjective: continued back pain, no leg pain, no weakness Objective: Vital Signs Temp Pulse Resp BP Pulse Ox 36.6 C 99 18 128/68 H 95 06/03/17 04:00 06/03/17 04:00 06/03/17 04:00 06/03/17 04:00 06/03/17 04:00 Laboratory Results 06/02/17 04:46 06/01/17 04:00 06/02/17 06/03/17 06/04/17 05:59 05:59 05:59 Intake Total 1600 1900 Output Total 830 80 Balance 770 1820 AAOx4, +FC PERRL, EOMI, no facial droop 5/5 + light touch C/D/I ICD10 Worksheet Patient Problems: Problems Problem Status Onset Chronic pain Acute S/P hardware removal Acute
--- NOTE | 2017-06-03 07:25 | PDIAF ---
- Diagnosis Code Status: Full Code - Medication Management Discharge Medications: Medications to Continue on Transfer Acetaminophen [Tylenol ES 500 mg (*)] 500 mg PO Q6 PRN 05/23/17 [Last Taken Unknown] Alendronate Sodium [Fosamax 70 MG (*)] 70 mg PO WE@0700 05/23/17 [Last Taken ] Calcium Carbonate [Oyster Shell Calcium 500 mg (*)] 1,500 mg PO DAILY 05/23/17 [ Last Taken 05/25/17] Cetirizine [ZyrTEC 10 mg (*)] 10 mg PO HS 05/23/17 [Last Taken 05/28/17] DULoxetine [Cymbalta 60 MG (*)] 60 mg PO DAILY 05/23/17 [Last Taken 05/29/17] Diazepam [Valium 10 MG (*)] 10 mg PO TID PRN 05/23/17 [Last Taken 05/28/17] Enoxaparin [Lovenox 40 MG (*)] 40 mg SQ BID 05/23/17 [Last Taken 05/28/17] FLUoxetine [Prozac 20 MG (*)] 20 mg PO DAILY 05/23/17 [Last Taken 05/29/17] Herbals/Supplements -Info Only 1 ea PO DAILY 05/23/17 [Last Taken 05/25/17] Levothyroxine [Synthroid 50 mcg (*)] 50 mcg PO DAILY06 05/23/17 [Last Taken ] Magnesium Oxide [Magnesium Oxide 400 mg (*)] 400 mg PO DAILY 05/23/17 [Last Taken 05/25/17] Melatonin [Melatonin 3 MG (*)] 6 mg PO HS 05/23/17 [Last Taken 05/28/17] Methylphenidate HCl [Ritalin 5mg (*)] 15 mg PO BID@ PRN 05/23/17 [Last Taken 05/22/17] Montelukast Sodium [Singulair 10 mg (*)] 10 mg PO HS 05/23/17 [Last Taken ] OLANZapine [ZyPREXA 2.5 mg (*)] 7.5 mg PO HS 05/23/17 [Last Taken 05/28/17] Omeprazole [Prilosec 20 mg] 40 mg PO DAILY 05/23/17 [Last Taken 05/29/17] Polyethylene Glycol 3350 [Miralax 17 gm (*)] 17 gm PO DAILY 05/23/17 [Last Taken 05/15/17] Pregabalin [Lyrica 100mg (*)] 100 mg PO TID 05/23/17 [Last Taken 05/29/17] Promethazine HCl [Phenergan 25mg (*)] 25 mg PO DAILY PRN 05/23/17 [Last Taken ] Pt Own Pain Pump 1 each SQ CONT 05/23/17 [Last Taken 05/29/17] Rizatriptan Benzoate [Maxalt 10mg] 20 mg PO ONETIMEPRN PRN 05/23/17 [Last Taken 05/19/17] Suvorexant [Belsomra] 15 mg PO HS 05/23/17 [Last Taken 05/25/17] Trimethoprim [TRIMPEX 100MG (*)] 100 mg PO DAILY 05/23/17 [Last Taken 05/28/17] Zolpidem Tartrate [Ambien] 10 mg PO HS 05/23/17 [Last Taken 05/27/17] oxyCODONE IR [Oxycodone Ir (*)] 15 mg PO TID PRN 05/23/17 [Last Taken 05/28/17] tiZANidine HCL [Zanaflex 2MG (*)] 4 mg PO TID 05/23/17 [Last Taken 05/27/17] Methocarbamol [Robaxin 750 mg (*)] 750 mg PO QID PRN tab 06/03/17 [Last Taken Unknown] Ondansetron Odt [Zofran Odt 4 mg (*)] 4 - 8 mg PO Q6HRS PRN tab 06/03/17 [Last Taken Unknown] Sennosides/Docusate Sodium [Senokot-S] 1 - 2 tab PO BID tab 06/03/17 [Last Taken Unknown] morphINE SR [MS Contin/Oramorph SR 30 mg (*)] 30 mg PO BID tab 06/03/17 [Last Taken Unknown] Discharge Medications: Refer to the Discharge Home Medication list for PRN reason. PICC Care - Routine: N/A - Orders Services needed: Registered Nurse, Physical Therapy, Occupational Therapy Diet Recommendation: no restrictions on diet Diet Texture: Regular Texture Diet Sutures/Staci Site: remove steri strips on 06/12/17 Equipment: Luann brace at all times when out of bed - Follow Up Care Current Providers and Referrals: Patient,NotPresent [Unknown] -
[2017-06-03] MEDS: SENNOSIDES/DOCUSATE SODIUM TAB PO SCH ×2 (08:38→20:45)
[2017-06-03] MEDS: PREGABALIN 100 MG CAP PO SCH ×3 (08:38→20:45)
[2017-06-03] MEDS: METHOCARBAMOL 750 MG TAB PO PRN ×2 (08:38→16:59)
[2017-06-03] MEDS: LACTULOSE 20 GM/30 ML UDCUP PO PRN (08:38)
[2017-06-03] MEDS: MAGNESIUM OXIDE 400 MG TAB PO SCH (08:38)
[2017-06-03] MEDS: PANTOPRAZOLE SODIUM 40 MG TAB PO SCH (08:38)
[2017-06-03] MEDS: morphINE SR 30 MG TAB PO SCH ×2 (08:39→20:45)
[2017-06-03] MEDS: FERROUS SULFATE 325 MG TAB PO SCH (08:39)
[2017-06-03] MEDS: CALCIUM CARBONATE 500 MG TAB PO SCH (08:39)
[2017-06-03] MEDS: DULoxetine 60 MG CAP PO SCH (08:40)
[2017-06-03] MEDS: FLUoxetine 20 MG CAP PO SCH (08:40)
[2017-06-03] MEDS: ENOXAPARIN 40 MG/0.4 ML SYR SC SCH ×2 (08:40→20:46)
[2017-06-03] MEDS: TRIMETHOPRIM 100 MG TAB PO SCH (08:40)
[2017-06-03] MEDS: HYDROmorphONE/DILAUDID 1 MG/ML INJ IVP PRN (10:14)
--- NOTE | 2017-06-03 14:43 | ASMTCMCOM ---
CM Note CM Note Notes: Pt first choice SNF [facility] has no bed today, unknown if there will be a bed tomorrow. [facility] is also unable to clarify at this time if they take pt insurance, something which was an issue last time pt was at [facility] (they said they did not take pt insurance). Ivanan does state she thinks pt has a co-payment for [facility] but is not sure if the co-payment is 20% or 40%. Pt second choice is [facility] and referral sent today, they need insurance auth so pt likely not d/c today even though orders are in. Pt updated and she will update her . CM to follow. D/c plan of care: SNF when there is an accepting facility with insurance auth/coverage Date Signed: 06/03/2017 02:42 PM Electronically Signed By:FIDE Martin
[2017-06-03] MEDS: MELATONIN 3 MG TAB PO SCH (20:44)
[2017-06-03] MEDS: OLANZapine 2.5 MG TAB PO SCH (20:45)
[2017-06-03] MEDS: ZOLPIDEM TARTRATE 5 MG TAB PO SCH (20:45)
[2017-06-03] MEDS: CETIRIZINE 10 MG TAB PO SCH (20:45)
[2017-06-03] MEDS: MONTELUKAST SODIUM 10 MG TAB PO SCH (20:45)
[2017-06-03] MEDS: Suvorexant [Belsomra] 15 MG PO SCH (23:02)
[2017-06-04] MEDS: LEVOTHYROXINE 50 MCG TAB PO SCH (05:16)
[2017-06-04] MEDS: oxyCODONE IR 15 MG TAB PO PRN (05:16)
[2017-06-04] MEDS ORDERED: ALENDRONATE SODIUM 70 MG TAB PO SCH (07:00)
[2017-06-04] MEDS: FLUoxetine 20 MG CAP PO SCH (08:02)
[2017-06-04] MEDS: morphINE SR 30 MG TAB PO SCH ×2 (08:03→22:22)
[2017-06-04] MEDS: TRIMETHOPRIM 100 MG TAB PO SCH (08:03)
[2017-06-04] MEDS: DULoxetine 60 MG CAP PO SCH (08:03)
[2017-06-04] MEDS: MAGNESIUM OXIDE 400 MG TAB PO SCH (08:03)
[2017-06-04] MEDS: CALCIUM CARBONATE 500 MG TAB PO SCH (08:03)
[2017-06-04] MEDS: FERROUS SULFATE 325 MG TAB PO SCH (08:03)
[2017-06-04] MEDS: PANTOPRAZOLE SODIUM 40 MG TAB PO SCH (08:03)
[2017-06-04] MEDS: SENNOSIDES/DOCUSATE SODIUM TAB PO SCH ×2 (08:04→22:22)
[2017-06-04] MEDS: ENOXAPARIN 40 MG/0.4 ML SYR SC SCH ×2 (08:04→22:22)
[2017-06-04] MEDS: PREGABALIN 100 MG CAP PO SCH ×3 (08:04→22:22)
--- NOTE | 2017-06-04 08:06 | SOAPPROG ---
SOAP Progress Note Assessment/Plan: Assessment: 51 yo F POD #6 T3-T10 fusion with T6 PSO Plan: stable pain control improving will check thoracic x-rays since she felt a pop this am while moving Minvera brace when out of bed PT/OT scd/lei/lovenox for dvt prophylaxis ok to discharge to rehab today YVON removed 06/03 please call with neuro changes discussed with Dr Tarango 05/29/17 19:32 05/31/17 09:41 06/01/17 09:19 06/03/17 07:17 06/04/17 08:05 Subjective: continued back pain, no leg pain, no weakness. Objective: Vital Signs Temp Pulse Resp BP Pulse Ox 36.6 C 97 18 112/77 98 06/04/17 07:32 06/04/17 07:32 06/04/17 07:32 06/04/17 07:32 06/04/17 07:32 Laboratory Results 06/02/17 04:46 06/01/17 04:00 06/03/17 06/04/17 06/05/17 05:59 05:59 05:59 Intake Total 1900 700 Output Total 80 69 Balance 1820 631 AAOX4, +FC PERRL, EOMI, no facial droop 5/5 + light touch C/D/I ICD10 Worksheet Patient Problems: Problems Problem Status Onset Chronic pain Acute S/P hardware removal Acute
[2017-06-04] MEDS: MAGNESIUM HYDROXIDE 30 ML UDCUP PO PRN (08:11)
[2017-06-04] MEDS: DIAZEPAM 5 MG TAB PO PRN (09:17)
[2017-06-04] MEDS: HYDROmorphONE/DILAUDID 1 MG/ML INJ IVP PRN (09:57)
--- NOTE | 2017-06-04 16:08 | ASMTCMCOM ---
CM Note CM Note Notes: [facility] reports insurance authorization is now in from [employer] and it is too late in the afternoon to accept pt admission today. This SNF requires interagency transfer of care to be signed by a doctor and Sid CORRIGAN was updated about this requirement. Pt will d/c tomorrow and Eduin will transport. CM to follow. Date Signed: 06/04/2017 04:07 PM Electronically Signed By:FIDE Martin
[2017-06-04 16:30] VITALS: RESP 16
[2017-06-04] MEDS: LACTULOSE 20 GM/30 ML UDCUP PO PRN (17:15)
[2017-06-04] MEDS: ZOLPIDEM TARTRATE 5 MG TAB PO SCH (22:22)
[2017-06-04] MEDS: OLANZapine 2.5 MG TAB PO SCH (22:23)
[2017-06-04] MEDS: MELATONIN 3 MG TAB PO SCH (22:23)
[2017-06-04] MEDS: Suvorexant [Belsomra] 15 MG PO SCH (22:23)
[2017-06-04] MEDS: CETIRIZINE 10 MG TAB PO SCH (22:23)
[2017-06-04] MEDS: MONTELUKAST SODIUM 10 MG TAB PO SCH (22:23)
[2017-06-05] MEDS: LEVOTHYROXINE 50 MCG TAB PO SCH (06:06)
[2017-06-05] MEDS: oxyCODONE IR 15 MG TAB PO PRN ×2 (07:16→14:41)
[2017-06-05] MEDS: morphINE SR 30 MG TAB PO SCH (09:18)
[2017-06-05] MEDS: SENNOSIDES/DOCUSATE SODIUM TAB PO SCH (09:19)
[2017-06-05] MEDS: FERROUS SULFATE 325 MG TAB PO SCH (09:19)
[2017-06-05] MEDS: PANTOPRAZOLE SODIUM 40 MG TAB PO SCH (09:19)
[2017-06-05] MEDS: PREGABALIN 100 MG CAP PO SCH (09:19)
[2017-06-05] MEDS: MAGNESIUM OXIDE 400 MG TAB PO SCH (09:19)
[2017-06-05] MEDS: CALCIUM CARBONATE 500 MG TAB PO SCH (09:19)
[2017-06-05] MEDS: FLUoxetine 20 MG CAP PO SCH (09:19)
[2017-06-05] MEDS: DULoxetine 60 MG CAP PO SCH (09:19)
[2017-06-05] MEDS: TRIMETHOPRIM 100 MG TAB PO SCH (09:20)
[2017-06-05] MEDS: LACTULOSE 20 GM/30 ML UDCUP PO PRN (09:20)
[2017-06-05] MEDS: ENOXAPARIN 40 MG/0.4 ML SYR SC SCH (09:20)
--- NOTE | 2017-06-05 09:36 | SOAPPROG ---
SOAP Progress Note Assessment/Plan: Assessment: 51 yo F POD #7 T3-T10 fusion with T6 PSO Plan: stable pain control improving thoracic x-rays look great Minvera brace when out of bed PT/OT scd/lei/lovenox for dvt prophylaxis ok to discharge to rehab today YVON removed 06/03 please call with neuro changes discussed with Dr Tarango 05/29/17 19:32 05/31/17 09:41 06/01/17 09:19 06/03/17 07:17 06/04/17 08:05 06/05/17 09:35 Subjective: continued back pain, no leg pain, no weakness. Objective: Vital Signs Temp Pulse Resp BP Pulse Ox 36.7 C 87 16 104/67 89 L 06/05/17 07:44 06/05/17 07:44 06/05/17 07:44 06/05/17 07:44 06/05/17 07:44 Laboratory Results 06/02/17 04:46 06/01/17 04:00 06/04/17 06/05/17 06/06/17 05:59 05:59 05:59 Intake Total 700 2346 Output Total 69 500 Balance 631 1846 AAOx4, +FC PERRL, EOMI, no facial droop 5/5 + light touch C/D/I ICD10 Worksheet Patient Problems: Problems Problem Status Onset Chronic pain Acute S/P hardware removal Acute
[2017-06-05] MEDS: METHOCARBAMOL 750 MG TAB PO PRN (10:09)
[2017-06-05 11:38] VITALS: PULSE 85; TEMP 97.7
[2017-06-05 11:40] VITALS: BP 95/60; O2SAT 92
--- NOTE | 2017-06-05 13:34 | WOCRNPDOC ---
WOCRN Advanced Assessment Note - Skin Integrity Problem, Advanced Assess Left Posterior Leg Pressure Injury Dressing Type: Open to Air Site Measurement - Head-to-Toe Length X Width X Depth (cm): 0.4x1.2x0.1 Pressure Injury Stage: Stage 2, Psychiatric Mental Health Nurse Related Pressure Injury (SCD) Pressure Injury Present on Admit: No Skin Integrity Problem Comment: Small Stage 2 behind knee and a stage 1 along medial calf both from SCD's. No intervention necessary. Keep SCD's from sliding up and make sure they are properly fitted.
--- NOTE | 2017-06-05 15:17 | ASMTCMCOM ---
CM Note CM Note Notes: Pt medically stable for d/c to [facility]. Pt to transport. Orders sent to [facility] in [employer] and transfer of care w signature faxed. RADHA Kingston to call report [phone]. Date Signed: 06/05/2017 03:16 PM Electronically Signed By:FIDE Martin
--- NOTE | 2017-06-05 15:17 | ASDISCHSUM ---
Discharge Information Plan Status:SNF Medically Cleared to Leave: Discharge Date:06/05/2017 02:55 PM D/C Disposition:Fdc Facility ADT D/C Disposition:Other Rehab, Not [facility] Projected Discharge Date:06/03/2017 11:00 AM Transportation at D/C:Family Discharge Delay Reason: Follow-Up Date:06/03/2017 11:00 AM Discharge Slot: Final Diagnosis: Placement Information Referral Type:*Snf/SNF Referral ID:[id number] Provider Name:[facility] ([facility] Address 1:[address] Phone Number: Address 2: Fax Number: City:[place] Selection Factors: State:[place] Patient Contact Information Contact Name:BETTY Relationship: Address:[address] [place] [address] City:[place] Alternate Phone: State/Zip Code:[place] [address] Email: Financial Information Financial Class:HMO and PPO Plans Primary Plan Desc:[employer] Primary Plan Number:[id number] Secondary Plan Desc:MEDICARE INPATIENT Secondary Plan Number:[id number] Assessment Information [facility] CM Progress Note CM Note CM Note Notes: Patient is POD #1 T3-T10 fusion with T6 PSO. She is being weaned of Precedex. Janeth has fit her for Luann brace, which she can wear when up and out of bed. PT and OT each saw patient today, but evaluations seem to be limited by patient's pain. Recommendations range from SNF to inpatient rehab to home with homecare. It's too early to tell what she will need, so we will follow. Patient lives with her Eduin. Current CM Discharge plan: TBD Date Signed: 05/30/2017 03:41 PM Electronically Signed By:Corine Tavarez RN [facility] CM Progress Note CM Note CM Note Notes: Met with patient to review dc plan of care. She abd her reside in [place] and she would like to go to [facility] in [place]. Referral sent via [employer]. Response was insurance numbers were invalid. Call to our financials and numbers verified as accurate. Returned call and left message with Lissa to call CM. Cm to follow. Date Signed: 06/02/2017 12:06 PM Electronically Signed By:Leisa Zavala RN [facility] CM Progress Note CM Note CM Note Notes: [facility] able to verify insurance. Spoke with patient's Efra. They would eally prefer she rehab in [place]. Faxed H&P per request to [facility]. Hopefully here about acceptance soon. Plan to [facility] rehab in [place] when medically cleared for discharge. CM to follow. Date Signed: 06/02/2017 03:55 PM Electronically Signed By:Leisa Zavala RN [facility] CM Progress Note CM Note CM Note Notes: Pt first choice SNF [facility] has no bed today, unknown if there will be a bed tomorrow. [facility] is also unable to clarify at this time if they take pt insurance, something which was an issue last time pt was at [facility] (they said they did not take pt insurance). Ivanna does state she thinks pt has a co-payment for [facility] but is not sure if the co-payment is 20% or 40%. Pt second choice is [facility] and referral sent today, they need insurance auth so pt likely not d/c today even though orders are in. Pt updated and she will update her . CM to follow. D/c plan of care: SNF when there is an accepting facility with insurance auth/coverage Date Signed: 06/03/2017 02:42 PM Electronically Signed By:FIDE Martin [facility] CM Progress Note CM Note CM Note Notes: [facility] ([place]) reports insurance authorization is now in from [employer] and it is too late in the afternoon to accept pt admission today. This SNF requires interagency transfer of care to be signed by a doctor and Sid CORRIGAN was updated about this requirement. Pt will d/c tomorrow and Eduin will transport. CM to follow. Date Signed: 06/04/2017 04:07 PM Electronically Signed By:FIDE Martin [facility] CM Progress Note CM Note CM Note Notes: Pt medically stable for d/c to [facility]. Pt to transport. Orders sent to [facility] in [employer] and transfer of care chanell JIMENEZ signature faxed. RADHA Kingston to call report [phone]. Date Signed: 06/05/2017 03:16 PM Electronically Signed By:IFDE Martin Intervention Information Intervention Type:*IM-Signed Date of Service:06/03/2017 09:39 AM Patient Type:Inpatient Staff Member:Flower Domingo Hours: Discipline: Severity: Comment: Intervention Type:*IM-Signed Date of Service:06/05/2017 10:43 AM Patient Type:Inpatient Staff Member:Flower Domingo Hours: Discipline: Severity: Comment:
--- NOTE | 2017-06-11 08:13 | GDS ---
[f rep st] DISCHARGE SUMMARY ADMIT DIAGNOSIS: Thoracic compression fracture with progressive kyphosis. DISCHARGE DIAGNOSIS: Status post hardware removal followed by T3-T10 posterior instrumentation and f usion, and a T6 posterior spinal osteotomy. HISTORY/PHYSICAL: Please see admission history and physical. COURSE: Patient is a 52-year-old female with a history of a previous thoracolumbar instrumentation a nd fusion. She presented with thoracic compression fracture with progressive kyphosis. She was take n to the operating room on 05/29/2017, where she underwent hardware removal followed by T3 through T1 0 posterior instrumentation and fusion and a T6 posterior spinal osteotomy. There were no intraopera tive complications and she was admitted to the ICU for observation. The patient did have a high lunchroom attendant danyell narcotic tolerance due to her intrathecal pain pump. She made slow progress with physical therap y and occupational therapy. She was followed by the hospitalists and critical care pulmonology. She was transferred to rehab on 06/05/2017. Patient was discharged with thoracic fusion instructions. Recommended she return for neurosurgical followup in 10-14 days. /[id number]
== END 2017-06-05 14:55 | DRG 454 ==
LOC: F3N 08:38 → F2N 17:29 → F3N 06-01 15:41
PROVIDERS: ADMIT Neurological Surgery; ATTEND Neurological Surgery
DX: M40.204 Unspecified kyphosis, thoracic region (principal); D68.59 Other primary thrombophilia; L89.892 Pressure ulcer of other site, stage 2; I10 Essential (primary) hypertension; G47.31 Primary central sleep apnea; K21.9 Gastro-esophageal reflux disease without esophagitis; D50.9 Iron deficiency anemia, unspecified; Z86.718 Personal history of other venous thrombosis and embolism
CPT/HCPCS: 97116-GP; 97161-GP; 97166-GO; 97530-GO; 97530-GP; 97535-GO; C1713; C1762; G8978-GP-CJ; G8979-GP-CI; G8987-GO-CK; G8988-GO-CI; J0171; J0690; J1170; J1650; J2250; J2270; J2274; J2370; J2405; J2704; J3010; J3360; J7060; P9041; P9047